=== PATIENT | male | born 2005 | race Caucasian/White ===

== ENCOUNTER 2024-10-05 16:12 | Emergency (ER) | payer OTHER, SELFPAY ==
[2024-10-05] VITALS (8 sets, daily range): BP systolic 99–119; BP diastolic 63–67; PULSE 61–97; RESP 16–18; TEMP 37.2–38.7; O2SAT 95–99; BMI 19.9
--- NOTE | 2024-10-05 17:21 | ED.ABDPAIN ---
HPI - Abdominal Pain General Date Seen: 10/05/24 Chief Complaint: Fever Stated Complaint: bacterial infection, sent from urgent care Time Seen by Provider: 10/05/24 16:16 Source: patient, RN notes reviewed and old records reviewed Mode of arrival: ambulatory Limitations: no limitations History of Present Illness HPI narrative: Patient is a very nice 18-year-old gentleman who presents here for evaluation of right lower quadrant pain and being sick for the last 2 weeks, 2 weeks ago he had an acute illness involving nausea and vomiting, and some diarrhea. He said he improved from that although he was really sick at that time and now his only right lower quadrant pain. He saw her urgent care today who thought he was also jaundice, and with the history of right lower quadrant pain. Thought she he should come to the emergency room for further assessment. He denies any history of fevers chills, he has had no dysuria frequency he has had no further episodes of loose stools. He did not take any antibiotics as min taking any medications for this. Previous to this he was on no medications no allergies and no hospitalizations. 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 Speaks excellent [place] Irish. 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 No history of any surgeries on his abdomen, MD elicited complaint: abdominal pain Related Data Home Medications ?Medication ?Instructions ?Recorded ?Confirmed No Known Home Medications 10/05/24 10/05/24 Allergies Allergy/AdvReac Type Severity Reaction Status Date / Time No Known Drug Allergies Allergy Verified 10/05/24 18:27 Review of Systems Status of ROS Reports: 10 or more systems reviewed and unremarkable except as noted in History and below PFSH PFS Social History Smoking Status: Never smoker How often do you have a drink containing alcohol: monthly or less AUDIT-C Alcohol total score: 1 Non-prescribed substance use: denies use Exam Narrative: Exam Narrative: On examination here is thin he is tall, he is in no apparent distress he has some mild acne around his oropharynx, pupils equal round reactive to light his TMs are normal his oropharynx normal his neck is supple chest is excellent air entry bilaterally with no wheezing crackles noted his heart sounds are normal, no clicks murmurs or gallops his abdomen is scaphoid, there is no tenderness in the right upper quadrant when I pressed. He has a negative Peguero sign his tenderness is all in the mid to lower right lower abdominal region along his right inguinal area he does not have a hernia normal male genitalia, skin reveals no petechiae rashes he has no CVA tenderness no percussion tenderness noted over his back and he has no rashes. Neurologically intact moving his upper lower extremities. Const: Vital Signs, click to edit/add: Vital Signs - 24 hr 10/05/24 16:19 10/05/24 17:45 10/05/24 18:12 Temperature 101.7 F H 101.7 F H 100.8 F H Pulse Rate Pulse Rate [Left P ulse Oximeter] Pulse Rate [Pulse Oximeter] 97 80 Respiratory Rate 16 18 Blood Pressure Blood Pressure [Ri ght Arm] Blood Pressure [Ri ght Upper Arm] 99/63 119/64 Pulse Oximetry 99 95 Oxygen Delivery Me thod Room Air Room Air 10/05/24 18:26 10/05/24 19:48 10/05/24 19:51 Temperature 100.8 F H 99.2 F Pulse Rate Pulse Rate [Left P ulse Oximeter] 80 Pulse Rate [Pulse Oximeter] 68 Respiratory Rate 18 18 Blood Pressure 104/65 Blood Pressure [Ri ght Arm] 119/64 Blood Pressure [Ri ght Upper Arm] 104/65 Pulse Oximetry 95 97 Oxygen Delivery Me thod Room Air Room Air 10/05/24 20:02 Temperature Pulse Rate 66 Pulse Rate [Left P ulse Oximeter] Pulse Rate [Pulse Oximeter] Respiratory Rate Blood Pressure 100/63 Blood Pressure [Ri ght Arm] Blood Pressure [Ri ght Upper Arm] Pulse Oximetry 96 Oxygen Delivery Me thod Documenting provider has reviewed patient's vital signs: yes Course Reevaluation(s) Time of Reevaluation #1: 19:52 Reevaluation #1: I went over the patient and his white count is elevated at 22 showing all neutrophils, and his CT scan shows evidence of what looks like a appendiceal abscess, I reviewed this with her surgeon Dr. John she suggested transfer for percutaneous drainage, and IV antibiotics she suggested Ertapenem. I explained this to the patient he would likes the check with [place] 1[facility], an [place] 2nd. He once again declined pain medication Vital Signs Vital signs: Initial Vital Signs Temperature 101.7 F H 10/05/24 16:19 Temperature Source Temporal Artery Scan 10/05/24 16:19 Pulse Rate 97 10/05/24 16:19 Respiratory Rate 16 10/05/24 16:19 Blood Pressure 99/63 10/05/24 16:19 Blood Pressure Mean 75 10/05/24 16:19 Blood Pressure Position Sitting 10/05/24 16:19 Pulse Oximetry 99 10/05/24 16:19 Oxygen Delivery Method Room Air 10/05/24 16:19 Vital Signs Temperature 101.7 F H 10/05/24 16:19 Pulse Rate 97 10/05/24 16:19 Respiratory Rate 16 10/05/24 16:19 Blood Pressure 99/63 10/05/24 16:19 Pulse Oximetry 99 10/05/24 16:19 Oxygen Delivery Method Room Air 10/05/24 16:19 Temperature 99.2 F 10/05/24 19:51 Pulse Rate 66 10/05/24 20:02 Respiratory Rate 18 10/05/24 19:51 Blood Pressure 100/63 10/05/24 20:02 Pulse Oximetry 96 10/05/24 20:02 Oxygen Delivery Method Room Air 10/05/24 19:51 Medications Administered Medications: Generic Name Dose Route Start Last Admin Trade Name Freq PRN Reason Stop Dose Admin Ertapenem 1 gm/ Sodium 100 mls @ 200 mls/hr 10/05/24 19:41 10/05/24 20:17 Chloride IVPB 10/05/24 19:42 200 mls/hr ONCE ONE Administration Discontinued Medications Generic Name Dose Route Start Last Admin Trade Name Freq PRN Reason Stop Dose Admin Acetaminophen 1,000 mg 10/05/24 17:09 10/05/24 17:45 Acetaminophen 500 Mg Tablet PO 10/05/24 17:10 1,000 mg ONCE ONE Administration Sodium Chloride 1,000 mls @ 1,000 mls/hr 10/05/24 17:15 10/05/24 19:03 0.9 % Sodium Chloride 1000 Ml IV 10/05/24 18:14 Infused .Q1H KELLEY Infusion MDM - Abdominal Pain MDM Narrative Medical decision making narrative: During this evaluation of this patient I considered multiple differential diagnosis is which included the life-threatening such as appendicitis, aortic aneurysm, mesenteric ischemia, bowel perforation, volvulus, and bowel obstruction. Other differential diagnosis is include but are not limited to cholecystitis, pancreatitis, hepatitis, gastritis, GERD, diverticulitis, peptic ulcer disease, pyelonephritis/UTI, renal colic/stone, testicular torsion as well as other acute scrotal processes, inflammatory bowel disease, as well as other etiologies Medical Records Attestation: I reviewed the patient's medical records. Lab Data Attestation: I reviewed the patient's lab results. Labs: Lab Results 10/05/24 10/05/24 Range/Units 17:34 17:38 WBC 22.90 H (4.50-11.00) K/uL RBC 4.46 (4.30-5.90) m/uL Hgb 13.4 L (13.5-17.5) gm/dL Hct 39.8 (37.0-53.0) % MCV 89 (80-100) fL MCH 30 (26-34) pg MCHC 34 (32-36) gm/dL RDW Coeff of Erica 12.6 (11.5-15.5) % Plt Count 289 (140-440) K/uL Neut % (Auto) 87.6 H (42.0-72.0) % Lymph % (Auto) 5.2 L (20-44) % Crook % (Auto) 6.6 (0.0-11.0) % Eos % (Auto) 0.1 (0.0-7.0) % Baso % (Auto) 0.2 (0.0-3.0) % Neut # (Auto) 20.10 H (1.7-7.0) K/uL Lymph # (Auto) 1.20 (0.90-2.90) K/uL Crook # (Auto) 1.50 H (0.00-0.90) K/UL Eos # (Auto) 0.00 (0.00-0.50) K/uL Baso # (Auto) 0.00 (0.00-0.30) K/uL Abs Immat Gran (auto) 0.10 (0.00-0.30) K/uL Imm/Tot Granulo (auto) 0.3 % Sodium 133 L (135-149) mmol/L Potassium 4.7 (3.6-5.1) mmol/L Chloride 98 (96-114) mmol/L Carbon Dioxide 24 (20-32) mmol/L Anion Gap 11 (7-15) mEq/L BUN 16 (5-24) mg/dL Creatinine 0.8 (0.6-1.2) mg/dL Estimated Creat Clear 160.08 Estimated GFR 131 ml/min Glucose 113 (60-115) mg/dL Lactate 1.0 (0.5-1.9) mmol/L Calcium 9.3 (8.7-10.8) mg/dL Total Bilirubin 1.2 (0.1-1.5) mg/dL Direct Bilirubin 0.2 (0.0-0.5) mg/dL AST 29 (12-35) U/L ALT 25 (4-50) U/L Alkaline Phosphatase 74 (65-260) U/L C-Reactive Protein 20.0 H (0.5-1.0) mg/dL Total Protein 7.0 (6.0-8.3) g/dL Albumin 3.8 (3.3-5.0) g/dL Amylase 62 (18-89) U/L Lipase 61 (23-300) U/L Procalcitonin 0.32 (<0.50) ng/mL Urine Color Yellow (Yellow) Urine Appearance Slightly Cloudy A (Clear) Urine pH 5.5 (5.0-8.5) Ur Specific [place] 1.025 (1.000-1.030) Urine Protein 3+ A (Negative) Urine Glucose (UA) Negative (Negative) Urine Ketones Negative (Negative) Urine Blood Trace-intact A (Negative) Urine Nitrite Negative (Negative) Urine Bilirubin Negative (Negative) Urine Urobilinogen 0.2 (0.2-1.0) Ur Leukocyte Esterase Negative (Negative) Urine RBC 0-2 (0-2) Urine WBC 0-2 (0-5) Ur Squamous Epith Cells Few (None-Few) Urine Bacteria None (None) SARS-CoV-2 (PCR) Negative SARS-CoV-2 (Negative) Influenza Type A (PCR) Negative PCR FLU A (Negative) Influenza Type B (PCR) Negative PCR FLU B (Negative) RSV (PCR) Negative PCR RSV (Negative) Imaging Data CT scan - abdomen: Attestation: I have reviewed the pertinent imaging results. Radiologist's impression: [address] [address] Diagnostic Imaging Report Patient: Johnny Vann MR#: [id number] : 2005 Acct:[id number] Loc: ED Service Date: 10/05/[address]: Ordering Physician: Liu Everett M.D. Date of Service: 10/05/24 Procedure(s): CT abdomen pelvis w con Accession Number(s): [id number] cc: Provider,Not a Local; Liu Everett M.D.~ For Patients: As a result of the Cures Act, medical imaging exams and procedure reports are released immediately into your electronic medical record. You may view this report before your referring provider. If you have questions, please contact your health care provider. INDICATION: Right lower quadrant pain, bacterial infection. TECHNIQUE: CT of the abdomen and pelvis acquired with 82 cc Isovue 370 IV contrast. Coronal and sagittal reconstructions. COMPARISON: None. FINDINGS: Lower chest: Unremarkable. Liver: Enlarged measuring 22 cm in length. Normal attenuation. No suspicious masses. Gallbladder and bile ducts: Unremarkable. No biliary dilation. Spleen: Enlarged measuring 15 cm in length. Pancreas: Unremarkable. Adrenal glands: Unremarkable. Kidneys, Ureters, and Bladder: Symmetric enhancement. No hydronephrosis or obstructing stones. No significant bladder wall thickening. Reproductive organs: Unremarkable. GI tract/Peritoneum: No small bowel dilation. There is a short segment enteroenteric intussusception in the left mid abdomen which is likely transient. There is a complex rim enhancing gas and fluid collection in the right lower quadrant posterior to the cecum with surrounding inflammatory fat stranding measuring approximately 5.3 x 6.0 x 8.4 cm (series 2, image 116 and series 4, image 51). There is a 14 mm irregular calcific density centrally within this collection which likely represents an appendicolith. The appendix is not clearly identified. Findings are suspicious for ruptured acute appendicitis with abscess formation. No evidence of desire free air. No significant free fluid. Vasculature: Abdominal aorta is normal in caliber. Mesenteric arteries appear patent. Lymph nodes: Borderline enlarged enhancing right lower quadrant mesenteric lymph nodes and right external iliac chain lymph nodes are likely reactive. Abdominal Wall: Unremarkable. Bones: Unremarkable for age. IMPRESSION: 1. Inflammatory process in the right lower quadrant posterior to the cecum with a 5.3 x 6.0 x 8.4 cm complex gas and fluid collection and large central irregular calcific density. Findings are suspicious for ruptured acute appendicitis with abscess formation. No desire free air. 2. Borderline enlarged right lower quadrant lymph nodes are likely reactive. 3. Hepatosplenomegaly. Please note that all CT scans at this facility use dose modulation, iterative reconstruction, and/or weight-based dosing when appropriate to reduce radiation dose to as low as reasonably achievable. Dictated by Sole Silva MD @ 10/05/2024 7:13:05 PM (Electronically Signed) Discharge Plan Discharge Clinical Impression: Appendiceal abscess Patient Disposition: [facility] Condition: Stable Prescriptions: No Action No Known Home Medications Stand Alone Forms: MyHealth Info Instructions
[2024-10-05] MEDS: ACETAMINOPHEN 500 MG TABLET 1000 MG PO (17:45)
[2024-10-05] MEDS: 0.9 % SODIUM CHLORIDE 1000 ml 1,000 ML IV (17:46)
[2024-10-05 17:53] LABS: Appearance Urine Slightly Cloudy (Clear); Bilirubin Urine Negative (Negative); Blood Urine Trace-intact (Negative); Glucose Urine Negative (Negative); Ketones Urine Negative (Negative); Leukocyte Esterase Urine Negative (Negative); Nitrite Urine Negative (Negative); Protein Urine 3+ (Negative); Specific Gravity Urine 1.025 (1.000-1.030); Urobilinogen Urine 0.2 (0.2-1.0); pH Urine 5.5 (5.0-8.5)
[2024-10-05 17:54] LABS: Color Urine Yellow (Yellow)
[2024-10-05 18:00] LABS: Basophils Percent Auto 0.2 % (0.0-3.0); Eosinophils Percent Auto 0.1 % (0.0-7.0); Hematocrit 39.8 % (37.0-53.0); Hemoglobin* 13.4 gm/dL (13.5-17.5); Immature Granulocytes Pct Auto 0.3 %; Lymphocytes Percent Auto 5.2 % (20-44); Mean Corpuscular HGB Conc 34 gm/dL (32-36); Mean Corpuscular Hemoglobin 30 pg (26-34); Mean Corpuscular Volume 89 fL (80-100); Monocytes Percent Auto 6.6 % (0.0-11.0); Neutrophils Percent Auto 87.6 % (42.0-72.0); Platelet Count* 289 K/uL (140-440); RDW Coefficient of Variation % 12.6 % (11.5-15.5); Red Blood Count 4.46 m/uL (4.30-5.90)
[2024-10-05 18:03] LABS: Chloride* 98 mmol/L (96-114); Potassium* 4.7 mmol/L (3.6-5.1); Sodium* 133 mmol/L (135-149)
[2024-10-05 18:04] LABS: Albumin* 3.8 g/dL (3.3-5.0)
[2024-10-05 18:05] LABS: Creatinine* 0.8 mg/dL (0.6-1.2); Est. Creatinine Clearance* 160.08; Estimated Glomerular Filt Rate 131 ml/min
[2024-10-05 18:06] LABS: Anion Gap 11 mEq/L (7-15); Carbon Dioxide* 24 mmol/L (20-32); Lipase* 61 U/L (23-300)
[2024-10-05 18:07] LABS: Alkaline Phosphatase* 74 U/L (65-260); Amylase* 62 U/L (18-89); Aspartate Amino Transferase* 29 U/L (12-35); Bilirubin Direct* 0.2 mg/dL (0.0-0.5); Bilirubin Total* 1.2 mg/dL (0.1-1.5); Blood Urea Nitrogen* 16 mg/dL (5-24); Calcium* 9.3 mg/dL (8.7-10.8); Glucose* 113 mg/dL (60-115)
[2024-10-05 18:08] LABS: Alanine Aminotransferase* 25 U/L (4-50); Slide Review Reflex No
[2024-10-05 18:23] LABS: Procalcitonin* 0.32 ng/mL (<0.50)
[2024-10-05 18:25] LABS: RBC Urine 0-2 (0-2); Squamous Epithelial Cell Urine Few (None-Few); WBC Urine 0-2 (0-5)
[2024-10-05 18:54] LABS: PCR FLU A Negative PCR FLU A (Negative); PCR FLU B Negative PCR FLU B (Negative); PCR RSV Negative PCR RSV (Negative); SARS PCR* Negative SARS-CoV-2 (Negative)
[2024-10-05] MEDS: ERTAPENEM 1 GM in 0.9 % SODIUM CHLORIDE Mini-bag 100 ML IVPB (20:17)
[2024-10-05] MEDS: LACTATED RINGERS 1000 ML 1,000 ML 75 ML IV (22:09)
[2024-10-05] MEDS: ONDANSETRON 2 MG/ML inj 4 MG IVP (22:10)
== END 2024-10-05 23:15 | disposition short-term general hospital (02) ==
PROVIDERS: Emergency Provider Family Medicine
DX: K35.210 Acute appendicitis with generalized peritonitis, without perforation, with abscess (principal)
CPT/HCPCS: 36415; 74177; 80048; 80076; 81001; 82150; 83605; 83690; 84145; 85025; 86140; 87040; 87631; 96365; 96375; 99284; A9270; J1335; J2405; J7030; J7120; Q9967

== ENCOUNTER 2024-10-05 23:11 | Outpatient (CLI) | payer OTHER, SELFPAY | END 2024-10-05 23:12 | disposition home or self-care (01) | LOC: AMB 10-10 15:21 | PROVIDERS: Visit Provider Emergency Medicine | DX: K35.33 Acute appendicitis with perforation, localized peritonitis, and gangrene, with abscess (principal) | CPT/HCPCS: A0425; A0434 ==

== ENCOUNTER 2024-10-19 15:33 | Emergency (ER) | payer OTHER, SELFPAY ==
[2024-10-19] VITALS (14 sets, daily range): BP systolic 95–109; BP diastolic 57–61; PULSE 80–97; RESP 18–20; TEMP 37.8–38.8; O2SAT 95–99; BMI 19.0
--- OUTSIDE RECORDS SUMMARY | 2024-10-19 15:34 | XMS_ITS | Encounter Summary ---
Author Organization [facility] Address [address] [place] [address] Care Team Providers Care Peer Counselor Name Role Phone None Reported, Pcp Primary Care Provider Unavail able Encounter Details Date Type Department Care Team (Late st Contact Info) Description 10/09/2024 Clinical Communication [facility]ST HIM [address] [place] [phone] Roya Clifton M [address] [place] [address] Social History Tobacco Use Types Packs/Day Years Used Date Smoking Tobacco: Never [facility] [employer] Answer Date Recorded In the past 12 months has [facility] electric, gas, oil, or water company threatened to shut off services in your home? No 10/08/2024 Humiliation, Afraid, Rape, and Kick questionnair e Answer Date Recorded Within the last year, have y ou been afraid of your partner or ex-partner? No 10/08/2024 Within the last year, have y ou been humiliated or emotionally abused in other ways by your partner or ex-partner? No Within the last year, have y ou been kicked, hit, slapped, or otherwise physically hurt by your partner or ex-partner? No 10/08/2024 Within the last year, have y ou been raped or forced to have any kind of sexual activity by your partner or ex-partner? No 10/08/2024 Hunger Vital Sign Answer Date Recorded Within the past 12 months, y ou worried that your food would run out before you got the money to buy more. Never true 10/08/19 25 Within the past 12 months, t he food you bought just didn't last and you didn't have money to get more. Never true 10/08/2024 PRAPARE - Transportation Answer Date Re corded In the past 12 months, has l ack of transportation kept you from medical appointments or from getting medications? No 04/2025 In the past 12 months, has l ack of transportation kept you from meetings, work, or from getting things needed for daily living? No 10/08/2024 Dental Answer Date Recorded Dental: Regular Dentist Unknown 10/05/19 Housing Stability Answer Date Recorded What is your living situation today? 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 [address] [place] [phone] 11/17/2024 11:30 AM CDT Appointment Department of Radiology in [address] [phone] Schuyler Norman APRN, C.N.P., M.S.N. [address] [place] [phone] 11/17/2024 1:00 PM CDT Office Visit Division of Trauma Critical Care and General Surgery in [address] [phone] Schuyler Norman APRN, C.N.P., M.S.N. [address] [place] [phone] documented as of this encounter Visit Diagnoses Not on filedocumented in this encounter Care Teams Peer Counselor Relationship Specialty Start Date End Date None Reported, Pcp PCP - General Family Medicine 10/06/24 documented as of this encounter
--- OUTSIDE RECORDS SUMMARY | 2024-10-19 15:35 | XMS_ITS | Encounter Summary ---
Author Organization [facility] Address [address] [place] [address] Care Team Providers Care Batch Plant Supervisor Name Role Phone None Reported, Pcp Primary Care Provider Unavail able Reason for Visit * Reason Comments Return Visit * Outpatient (Routine) - Closed Specialty Diagnoses / Procedures Referred By Contkelsea t Referred To Contact Trauma Critical Care and General Surgery Diagnoses Acute Appendicitis With Perforation Localized Peritonitis And Gangrene With Abscess Joseluis Daily, PJayAJay-Elfego [address] [place] [phone] Phone: tel: fax: [facility] Referral ID Status Reason Start Date Expiration Date Visits Re quested Visits Authorized [id number] Closed 10/09/2024 04/10/2026 1 1 Encounter Details Date Type Department Care Team (Late st Contact Info) Description 10/12/2024 2:15 PM GAS COLLECTION SYSTEM OPERATOR Office Visit Division of Trauma Critical Care and General Surgery in [place], [place] [address] [place] [phone] Joseluis Daily PJayAJay-CJay [address] [place] [phone] Schuyler Norman APRN, C.N.P., M.S.N. [address] [place] [phone] Candido Simpson M.D. [address] [place] [phone] Acute Appendicitis With Perforation Localized Peritonitis And Gangrene With Abscess Social History Tobacco Use Types Packs/Day Years Used Date Smoking Tobacco: Never Smokeless Tobacco: Never [facility] Utilities Answer Date Recorded In the past 12 months has th e electric, gas, oil, or water company threatened [...] your living situation today? 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 - 10/12/2024 2:15 PM CST SUBJECTIVE CHIEF COMPLAINT / REASON FOR VISIT Johnny Vann is a 18 y.o. male who presents for visit after sinogram and CT for perforated appendicitis. HISTORY OF PRESENT ILLNESS Mr. Vann initially presented to the [facility] with abdominal pain. History of 2-3 weeks of feeling ill initially thought to be food poisoning. Imaging they are notable for perforated appendicitis. He was transferred to [facility] for further evaluation.General surgery was consulted and after review of imaging the patient underwent a CT- guided drain. He presents today for follow up after repeat CT and sinogram. Notes that he has been feeling much improved since completing his antibiotics. He has been flushinghis drain 2 times daily as noted. Notes that he is tolerating a diet without any nausea or vomiting. Having normal bowel function as well as bladder function. He denies any fevers chills or night sweats at this time. OBJECTIVE PHYSICAL EXAM Physical Exam General: Alert, sitting in bedside chair, in no acute distress. Abdomen: Soft, nontender, nondistended. Right-sided ASHISH drain with minimal seropurulent drainage. ASSESSMENT / PLAN #1 Acute Appendicitis With Perforation Localized Peritonitis And Gangrene With Abscess #2 Abdominal Pain Mr. Vann fortunately remained stable since placement of his CT-guided drain. He has been flushingthis twice a day with minimal return of seropurulent fluid. He has remained hemodynamically stable and afebrile at this time. His CT today shows free spillage into the cavity abutting his drain with p.o. contrast. Sinogram also demonstrates communication with bowel, but the drain is well-positionedand flushes easily with excellent control of the cavity. His case was discussed with [facility] team and Dr. Barnett. We will plan for him to follow up in 1 month the proximally with repeat CT imaging, sinogram, and then visit afterwards. A good amount of time was spent discussing imaging and plan with patient and his mother. We discussed the plan would be further repeat imaging coming up. If that looks improved would expect to plan for a interval colonoscopy prior to listing for interval appendectomy. We also discussed the possibility of him returning to the [place] where he currently resides while not in school. I recommended that they talk to the local surgeon and see if they would be comfortableproviding this surgery for him. This can be discussed further at future appointments. Prescriptions provided for drain dressing as well as flushes for his drain. No further questions atthis time. I personally spent 40 minutes discussing the plan of care and reviewing imaging with family and patient. COLLECTION SYSTEM OPERATOR documented in this encounter Plan of Treatment Upcoming Encounters Date Type Department Care Team (Late st Contact Info) Description 11/17/2024 9:15 AM CDT Appointment Department of Radiology, [facility], in [place], [place] [address] [place] [phone] Schuyler Norman APRN, C.N.Rich., M.S.N. [address] [place] [phone] 11/17/2024 11:30 AM CDT Appointment Department of Radiology in [place], [place] [address] [place] [phone] Schuyler Norman APRN, Yennifer.N.P., M.S.N. [address] [place] [phone] 11/17/2024 1:00 PM CDT Office Visit Division of Trauma Critical Care and General Surgery in [address] [phone] Schuyler Norman APRN C.N.P., M.S.N. [address] [place] [phone] documented as of this encounter Visit Diagnoses Diagnosis Acute Appendicitis With Perforation Localized Peritonitis And Gangrene With Abscess documented in this encounter Care Teams Batch Plant Supervisor Relationship Specialty Start Date End Date None Reported, Pcp PCP - General Family Medicine 10/06/24 documented as of this encounter
--- OUTSIDE RECORDS SUMMARY | 2024-10-19 15:35 | XMS_ITS | Encounter Summary ---
Author Organization [facility] Address [address] [place] [id number] Care Team Providers Care Dethistler Operator Name Role Phone None Reported, Pcp Primary Care Provider Unavail able Reason for Referral * MRI/CAT/PET Scan (Routine) - Closed Specialty Diagnoses / Procedures Referred By Marybel stewart Referred To Contact Radiology Diagnoses Acute Appendicitis With Perforation Localized Peritonitis And Gangrene With Abscess Procedures CT Abdomen Pelvis with IV Contrast Joseluis Daily P.A.-C. [address] [place] [phone] Phone: tel: fax: [employer] Referral ID Status Reason Start Date Expiration Date Visits Re quested Visits Authorized [id number] Closed 10/09/2024 01/09/2026 1 1 ING UNIT CLERK Reason for Visit * MRI/CAT/PET Scan (Routine) - Closed Specialty Diagnoses / Procedures Referred By Contac t Referred To Contact Radiology Diagnoses Acute Appendicitis With Perforation Localized Peritonitis And Gangrene With Abscess Procedures CT Abdomen Pelvis with IV Contrast Joseluis Daily P.A.-C. [address] [place] [phone] Phone: tel: fax: [employer] Referral ID Status Reason Start Date Expiration Date Visits Re quested Visits Authorized [id number] Closed 10/09/2024 01/09/2026 1 1 Encounter Details Date Type Department Care Team (Latest Contact Info) Description 10/12/2024 9:05 AM NURSING UNIT CLERK - 10/12/2024 10:34 AM [facility] Hospital Encounter Department of Radiology, [facility], in [place], [place] [address] [place] [phone] Joseluis Daily P.A.-C. [address] [place] [phone] Acute Appendicitis With Perforation Localized Peritonitis And Gangrene With Abscess Discharge Disposition: Home or Self Care Social History Tobacco Use Types Packs/Day Years Used Date Smoking Tobacco: Never Smokeless Tobacco: Never [facility] Utilities Answer Date Recorded In the past 12 months has e electric, gas, oil, or water company [...] money to buy more. Never true 10/08/19 Within the past 12 months, t he [...] your living situation today? I have a [facility] place to live 10/08/2024 Sex and Gender Information Value Date Recorded Sex Assigned at Not on file Legal Sex Male 8:10 PM NURSING UNIT CLERK Gender Identity Not on file Sexual Orientation Not on file documented as of this encounter Medications at Time of Discharge acetaminophen (TylenoL) 500 mg tablet Take 2 tablets (1,000 mg total) by mouth every 6 (six) hours. 10/08/2024 boron aspartate (BORON COMPLEX ORAL) Take 1 tablet by mouth daily. OTC ferrous sulfate (IRON ORAL) Take 1 tablet by mouth daily. OTC - unknown dose/formulation MAGNESIUM ORAL Take 1 tablet by mouth daily. OTC supplement (unknown dose/formulation) sennosides (senna) 8.6 mg tablet Take 2 tablets (17.2 mg total) by mouth at bedtime as needed for constipation. For constipation 10/08/2024 sodium chloride 0.9 % injection Administer 3 mL every 8 (eight) hours. Please flush and aspirate your drain in the morning and evening with 3 cc of normal saline. 300 mL 10/08/2024 8:45 PM NURSING UNIT CLERK 10/08/2024 ZINC ORAL Take 1 tablet by mouth daily. OTC - unknown dose/formulation amoxicillin-pot clavulanate (Augmentin) 875-125 mg per tabletIndications :Intra-abdominal infection, community acquired Take 1 tablet by mouth every 12 (twelve) hours for 5 days Indications: Intra-abdominal infection, community acquired. 9 tablet 10/08/2024 8:45 PM NURSING UNIT CLERK 10/08/2024 documented as of this encounter Nursing Notes * Padmini Kearney L.P.N. - 10/12/2024 9:30 AM CST Outpatient, keeping PIV in for later exam or refused to keep in for later exam requiring PIV: Is PIV being left in? YES If no, did patient refuse? NO Why is PIV being left in? Another procedure/exam scheduled for today which requires a PIV Name and role of person notified in receiving area: [facility], alma Sommer ING UNIT CLERK documented in this encounter Plan of Treatment Upcoming Encounters Date Type Department Care Team (Late st Contact Info) Description 11/17/2024 9:15 AM CDT Appointment Department of Radiology, [facility], in [place], [place] [address] [place] [phone] Schuyler Norman APRN, C.N.P., M.S.N. [address] [place] [phone] 11/17/2024 11:30 AM CDT Appointment Department of Radiology in [place], [place] [address] [place] [phone] Schuyler Norman APRN, C.N.P., M.S.N. [address] [place] [phone] 11/17/2024 1:00 PM CDT Office Visit Division of Trauma Critical Care and General Surgery in [address] [phone] Schuyler Norman APRN, C.N.P., M.S.N. [address] [place] [phone] documented as of this encounter Procedures Procedure Name Priority Date/Time Associated Diagnosis Comments CT ABDOMEN PELVIS WITH IV CONTRAST RAD - Routine (most inpatients and all outpatients) 10/12/2024 10:10 AM NURSING UNIT CLERK Acute Appendicitis With Perforation Localized Peritonitis And Gangrene With Abscess documented in this encounter Results * CT Abdomen Pelvis with IV Contrast (10/12/2024 10:10 AM NURSING UNIT CLERK) Anatomical Region Laterality Modality Abdomen, Pelvis, Abdominal R ST LOS, Abdominal ARZ LOS, Abdominal FLA LOS N/A Computed Tomograp hy, Computed Tomography 10/12/2024 10:1 4 AM NURSING UNIT CLERK Impressions 10/12/2024 11:36 AM NURSING UNIT CLERK Interval placement of a percutaneous pigtail catheter into a periappendiceal abscess, which has substantially decreased in size. However, administered enteric contrast does readily fill the periappendiceal abscess cavity. No new discrete, drainable fluid collection. Narrative 10/12/2024 11:36 AM NURSING UNIT CLERK EXAM: CT ABDOMEN PELVIS WITH IV CONTRAST COMPARISON: CT abdomen/pelvis 10/05/2024 FINDINGS: History of perforated appendicitis, status post CT-guided drain placement on 10/06/2024. Since 10/05/2024, the periappendiceal abscess has decreased in size, now measuring approximately 4.3 x 2.3 cm (circa axial image 310), previously 6.3 x 4.6 cm. Enteric contrast was administered and extends to the cecum; contrast does freely fill the abscess cavity. Redemonstration of multiple calcified appendicoliths along the cephalad aspect of the pigtail catheter (images [id number]). No new discrete, drainable fluid collection. The bowel is normal in caliber. The liver, spleen, pancreas, adrenal glands, and kidneys are unremarkable. Distended urinary bladder. Patent hepatic, portal, and superior mesenteric veins. No abdominal aortic aneurysm. Mildly prominent lymph nodes within the ileocolic chain, likely reactive. No desire abdominopelvic adenopathy or ascites. Tiny nodule left lung base (axial image 55). The visualized lower chest is otherwise unremarkable. Procedure Note Jf Dinero M.D. - 10/12/2024 EXAM: CT ABDOMEN PELVIS WITH IV CONTRAST COMPARISON: CT abdomen/pelvis 10/05/2024 FINDINGS: History of perforated appendicitis, status post CT-guided drainplacement on 10/06/2024. Since 10/05/2024, the periappendiceal abscess hasdecreased in size, now measuring approximately 4.3 x 2.3 cm (circa axialimage 310), previously 6.3 x 4.6 cm. Enteric contrast was administered and extends to the cecum; contrastdoes freely fill the abscess cavity. Redemonstration of multiple calcifiedappendicoliths along the cephalad aspect of the pigtail catheter ([id number]). No new discrete, drainable fluid collection. The bowel is normal in caliber. The liver, spleen, pancreas, adrenal glands, and kidneys are unremarkable.Distended urinary bladder. Patent hepatic, portal, and superior mesentericveins. No abdominal aortic aneurysm. Mildly prominent lymph nodes withinthe ileocolic chain, likely reactive. No desire abdominopelvic adenopathy or ascites. Tiny nodule left lung base (axial image 55). The visualized lower chest isotherwise unremarkable. IMPRESSION: Interval placement of a percutaneous pigtail catheter into aperiappendiceal abscess, which has substantially decreased in size.However, administered enteric contrast does readily fill theperiappendiceal abscess cavity. No new discrete, drainable fluid collection. Joseluis Daily P.A.-C. IMG CT PROCEDURES Final Res ult documented in this encounter Visit Diagnoses Diagnosis Acute Appendicitis With Perforation Localized Peritonitis And Gangrene With Abscess documented in this encounter Administered Medications Inactive Administered Medications - up to 3 most recent administrations Medication Order MAR Action Action Date Dose Rate Site iohexoL (Omnipaque) dilution solution 9 mg iodine/mL 495-9,000 mg, oral, Once in imaging, contrast, Starting on Susan 10/12/24 at 0914, For 1 dose, Imaging Protocol Orders, Dose per Radiant Medication Guidelines Dosing Instructions/Compounding Instructions: Adults = 9,000 mg = 30 mL of 300 mg iodine/mL in 1,000 mL water; Peds > 18 kg = 4,500 mg = 15 mL of 300 mg iodine/mL in 500 mL apple juice or water; Peds 12-18 kg = 1,980-2,880 mg = 15 mL of 300 mg iodine/mL in 500 mL apple juice or water; Peds 8-12 kg = 1,350-1,935 mg = 7.5 mL of 300 mg iodine/mL in 250 mL apple juice or water; Peds 1-8 kg = 495-720 mg = 7.5 mL of 300 mg iodine/mL in 250 mL apple juice or water. Multiply the number of mLs consumed by 9 to calculate the total mg for documentation. Given 10/12/2024 10:22 AM NURSING UNIT CLERK 9,000 mg iohexoL 300 mg iodine/mL solution 1-200 mL (Omnipaque) 1-200 mL, intravenous, Once in imaging, contrast, Starting on Susan 10/12/24 at 0914, For 1 dose, Imaging Protocol Orders, Dose per Radiant Medication Guidelines Given 10/12/2024 9:53 AM NURSING UNIT CLERK 140 mL sodium chloride (PF) 0.9 % injection 1-100 mL 1-100 mL, intravenous, Once, On Susan 10/12/24 at 0930, For 1 dose, Imaging Protocol Orders, Dose per Radiant Medication Guidelines Given 10/12/2024 9:53 AM NURSING UNIT CLERK 50 mL documented in this encounter Care Teams Dethistler Operator Relationship Specialty Start Date End Date None Reported, Pcp PCP - General Family Medicine 10/06/24 documented as of this encounter
--- OUTSIDE RECORDS SUMMARY | 2024-10-19 15:35 | XMS_ITS | Clinical Summary ---
Author Organization [facility] Address [address] [place] [id number] Care Team Providers Care Suction Worker Name Role Phone None Reported, Pcp Primary Care Provider Unavail able Source Comments Patient records contain information from all sites at [facility]. For routine questions regarding patient records, call [phone] during business hours, M-F 8:00 AM - 5:00 PM Central Time. Record requests for emergency care only can be directed to [phone] at any time.[facility] Allergies No known active allergies Medications MAGNESIUM ORAL Take 1 tablet by mouth daily. OTC supplement (unknown dose/formulatio n) Active boron aspartate (BORON COMPLEX ORAL) Take 1 tablet by mouth daily. OTC Active ferrous sulfate (IRON ORAL) Take 1 tablet by mouth daily. OTC - unknown dose/formulatio n Active ZINC ORAL Take 1 tablet by mouth daily. OTC - unknown dose/formulatio n Active acetaminophen (TylenoL) 500 mg tablet Take 2 tablets (1,000 mg total) by mouth every 6 (six) hours. 10/08/19 25 Active sennosides (senna) 8.6 mg tablet Take 2 tablets (17.2 mg total) by mouth at bedtime as needed for constipation. For constipation 10/08/19 25 Active sodium chloride 0.9 % injection Administer 3 mL every 8 (eight) hours. Please flush and aspirate your drain in the morning and evening with 3 cc of normal saline. 300 mL 5 8:45 PM [facility] 10/08/19 25 Active sodium chloride (BD PosiFlush Normal Saline 0.9) 0.9 % injection Infuse 3 mL into a venous catheter every 12 (twelve) hours as needed for line care. Flush drain as directed 60 mL 1 10/12/19 25 2024 Active amoxicillin-po t clavulanate (Augmentin) 875-125 mg per tabletIndicati ons:Intra-abdo vianca infection, community acquired Take 1 tablet by mouth every 12 (twelve) hours for 5 days Indications: Intra-abdominal infection, community acquired. 9 tablet 8:45 PM [facility] 10/08/192024 sodium chloride 0.9 % injection Infuse 3 mL into a venous catheter every 8 (eight) hours. 30 each 1 10/08/19 25 2024 Discontinued sodium chloride 0.9 % injection Administer 3 mL every 8 (eight) hours. Please flush and aspirate your drain in the morning and evening with 3 cc of normal saline. 300 mL 1 10/08/19 25 2024 Discontinued sodium chloride 0.9 % injection Administer 3 mL every 8 (eight) hours. Please flush and aspirate your drain in the morning and evening with 3 cc of normal saline. 300 mL 10/08/19 25 2024 Discontinued sodium chloride 0.9 % injection Infuse 3 mL into a venous catheter every 12 (twelve) hours as needed for line care. Flush drain as directed 60 each 1 10/12/19 25 2024 Discontinued(R eorder) Active Problems Problem Noted Date Diagnosed Date Abdominal Pain 10/06/2024 Acute Appendicitis With Perf oration Localized Peritonitis And Gangrene With Abscess 10/06/2024 Encounters Date Type Department Care Team Description 10/19/2024 Documentation Division of Trauma Critical Care and General Surgery in [address] [phone] Gilma Yoon, C.N.P., R.N. 10/12/2024 2:15 PM [facility] Office Visit Division of Trauma Critical Care and General Surgery in [address] [phone] Joseluis Daily, PJayASchuyler Green APRN, C.N.P., M.S.N. Candido Simpson M.D. Acute Appendicitis With Perforation Localized Peritonitis And Gangrene With Abscess 10/12/2024 10:36 AM [facility] - 10/12/2024 12:51 PM [facility] Hospital Encounter Department of Radiology in [address] [phone] Joseluis Daily P.A.-C. Fleming, Chad J, M.D. Acute Appendicitis With Perforation Localized Peritonitis And Gangrene With Abscess Discharge Disposition: Home or Self Care 10/12/2024 9:05 AM [facility] - 10/12/2024 10:34 AM [facility] Hospital Encounter Department of Radiology, [facility], in [address] [phone] Joseluis Daily P.A.-C. Acute Appendicitis With Perforation Localized Peritonitis And Gangrene With Abscess Discharge Disposition: Home or Self Care 10/12/2024 Orders Only Division of Trauma Critical Care and General Surgery in [address] [phone] Schuyler Norman APRN, C.N.P., M.S.N. Acute Appendicitis With Perforation Localized Peritonitis And Gangrene With Abscess (Primary Dx) 10/09/2024 Clinical Communication [facility] [address] [place] [phone] Roya Clifton 10/09/2024 Clinical Communication [facility] [address] [phone] Joseluis Daily P.A.-C. Pre-visit Testing Orders 10/06/2024 4:35 AM [facility] Ancillary Procedure Department of General Surgery 10/06/2024 1:25 AM [facility] - 10/08/2024 8:57 PM [facility] Hospital Encounter [facility], [facility], Fifth Floor [address] [place] [phone] Letty Kevin P.A.-C. Zietlow, John M, M.D. Abdominal Pain (Primary Dx); Appendicitis Acute; Acute Appendicitis With Perforation Localized Peritonitis And Gangrene With Abscess Discharge Disposition: Home or Self Care 10/06/2024 1:15 AM [facility] Ancillary Procedure Department of Radiology in [place], [place] [address] [place] [address] Letty Kevin P.A.-C. 10/05/2024 Intake [facility] from Last 3 Months Social History Tobacco Use Types Packs/Day Years Used Date Smoking Tobacco: Never Smokeless Tobacco: Never Tobacco Cessation:Counseling Given: Not Answered [facility] Utilities Answer Date Recorded In the past 12 months has e [employer], oil, or water [email or web address] threatened to shut off services in your [...] your living situation today? I have a [facility] place to live 10/08/2024 Sex and Gender Information Value Date Recorded Sex Assigned at Not on file Legal Sex Male 8:10 PM [facility] Gender Identity Not on file Sexual Orientation Not on file Last Filed Vital Signs Vital Sign Reading Time Taken Comments Blood Pressure 122/64 10/12/2024 12:39 PM [facility] Pulse 67 10/12/2024 12:39 PM [facility] Temperature 36.5 C (97.7 F) 10/12/2024 12:39 PM [facility] Respiratory Rate 16 10/12/2024 11:34 AM [facility] Oxygen Saturation 100% 10/12/2024 12:39 PM [facility] Inhaled Oxygen Concentration - - Weight 76.4 kg (168 lb 6.9 oz) 10/12/2024 11:34 AM [facility] Height 190.5 cm (6' 3) 10/08/2024 8:15 PM [facility] Body Mass Index 21.05 10/08/2024 8:15 PM [facility] Plan of Treatment Upcoming Encounters Date Type Department Care Team (Late st Contact Info) Description 11/17/2024 9:15 AM CDT Appointment Department of Radiology, [facility], in [place], [place] [address] [place] [phone] Schuyler Norman APRN, C.N.P., M.S.N. [address] [place] [phone] 11/17/2024 11:30 AM CDT Appointment Department of Radiology in [address] [phone] Schuyler Norman APRN, C.N.P., M.S.N. [address] [place] [phone] 11/17/2024 1:00 PM CDT Office Visit Division of Trauma Critical Care and General Surgery in [address] [phone] Schuyler Norman APRN, C.N.P., M.S.N. [address] [place] [phone] Health Maintenance Due Date Last Done Comments HIV Screening 2004 Hearing Screening during Wel l Child Visit 2004 Hepatitis C Screening 2004 TB Screening during Well Chi ld Visit 2004 1 week Well Child Check-Up 2004 1 month Well Child Check-Up 2004 2 month Well Child Check-Up 2004 4 month Well Child Check-Up 01/20/2005 9 month Well Child Check-Up 06/22/2005 MMR Vaccines (1 of 1 - Stand keegan series) 2005 15 month Well Child Check-Up 12/21/2005 18 month Well Child Check-Up 03/22/2006 2 year Well Child Check-Up 09/22/2006 30 month Well Child Check-Up 03/22/2007 3 year Well Child Check-Up 09/22/2007 Well Child Check-Up Complete d in Past Year 09/22/2007 5 year Well Child Check-Up 09/22/2009 6 year Well Child Check-Up 09/22/2010 7 year Well Child Check-Up 09/22/2011 8 year Well Child Check-Up 09/22/2012 10 year Well Child Check-Up 09/22/2014 12 year Well Child Check-Up 09/22/2016 12 year Well Child Check-Up 09/22/2017 Varicella Vaccines (1 of 2 - 13+ 2-dose series) 2017 14 year Well Child Check-Up 09/22/2018 Vision Screening during Well Child Visit 2018 14 year Well Child Check-Up 09/22/2019 HPV Vaccines (1 - Male 3-dos e series) 2019 15 year Well Child Check-Up 10/19/2020 16 year Well Child Check-Up 09/22/2021 17 year Well Child Check-Up 09/22/2022 18 year Well Child Check-Up 09/22/2023 DTaP,Tdap,and Td Vaccines (1 - Tdap) 2023 Hepatitis B Vaccines (1 of 3 - 19+ 3-dose series) 2023 COVID-19 Vaccine (1 - 2023-2 5 season) 2024 Influenza Vaccine (#1) 2024 Depression Screening (Annual PHQ-2) 08/30/2024 19 year Well Child Check-Up 09/22/2024 Well Child Check-Up (WCC) 09/22/2024 IPV Vaccines Aged Out No longer eligi ble based on patient's age to complete this topic Meningococcal Vaccine Aged Out No macy gloria eligible based on patient's age to complete this topic Pneumococcal vaccine (0-49 years) Aged Out No longer eligible based on patient's age to complete this topic Procedures Procedure Name Priority Date/Time Associated Diagnosis Comments IR ABSCESS DRAIN CHECK RAD - Routine (most inpatients and all outpatients) 10/12/2024 12:34 PM [facility] Acute Appendicitis With Perforation Localized Peritonitis And Gangrene With Abscess CT ABDOMEN PELVIS WITH IV CONTRAST RAD - Routine (most inpatients and all outpatients) 10/12/2024 10:10 AM [facility] Acute Appendicitis With Perforation Localized Peritonitis And Gangrene With Abscess CBC WITHOUT DIFFERENTIAL, B Routine 10/12/2024 8:57 AM [facility] Acute Appendicitis With Perforation Localized Peritonitis And Gangrene With Abscess CBC WITHOUT DIFFERENTIAL, B Timed 10/08/2024 5:10 AM [facility] ADULT OXYGEN THERAPY Routine 10/07/2024 8:01 PM [facility] MICROSCOPIC MANUAL Routine 10/07/2024 3: 26 PM [facility] DIPSTICK, U Routine 10/07/2024 3:26 PM [facility] PH, U Routine 10/07/2024 3:26 PM [facility] OSMOLALITY, U Routine 10/07/2024 3:26 PM [facility] URINALYSIS WITH MICROSCOPIC Routine 10/07/2024 3:26 PM [facility] GLUCOSE POCT, B Routine 10/07/2024 11:54 AM [facility] ADULT OXYGEN THERAPY Routine 10/07/2024 8:01 AM [facility] BASIC METABOLIC PANEL, S/P Timed 10/07/2024 6:30 AM [facility] CBC WITHOUT DIFFERENTIAL, B Timed 10/07/2024 6:30 AM [facility] ADULT OXYGEN THERAPY Routine 10/06/2024 8:01 PM [facility] FUNGAL SMEAR Timed 10/06/2024 5:19 PM [facility] Abdominal Pain Appendicitis Acute FUNGAL CULTURE, ROUTINE Timed 10/06/2024 5:19 PM [facility] Abdominal Pain Appendicitis Acute GRAM STAIN Timed 10/06/2024 5:19 PM [facility] Abdominal Pain Appendicitis Acute BACTERIAL CULTURE, AEROBIC + SUSC Timed 10/06/2024 5:19 PM [facility] Abdominal Pain Appendicitis Acute CT ABDOMEN AND/OR PELVIS DRAIN PLACEMENT RAD - Routine (most inpatients and all outpatients) 10/06/2024 4:15 PM [facility] PROTHROMBIN TIME (PT), P Timed 10/06/2024 9:15 AM [facility] ADULT OXYGEN THERAPY Routine 10/06/2024 8:02 AM [facility] INTERPRETATION OF OUTSIDE CT ABDOMEN AND OR PELVIS RAD - Semiurgent (Fast; most ED patients; some inpatients) 10/06/2024 5:26 AM [facility] SURGERY IMAGE EXAM Routine 10/06/2024 4: 35 AM [facility] ADULT OXYGEN THERAPY Routine 10/06/2024 4:23 AM [facility] ADULT OXYGEN THERAPY Routine 10/06/2024 4:23 AM [facility] ADULT OXYGEN THERAPY Routine 10/06/2024 4:23 AM [facility] BACTERIA / TIFF CULTURE, BLOOD STAT 10/06/2024 3:06 AM [facility] TYPE AND SCREEN Routine 10/06/2024 2:55 AM [facility] LIPASE, S/P STAT 10/06/2024 2:55 AM [facility] LACTATE, B/P STAT 10/06/2024 2:55 AM [facility] HEPATIC FUNCTION PANEL, S STAT 10/06/2024 2:55 AM [facility] BASIC METABOLIC PANEL, S/P STAT 10/06/2024 2:55 AM [facility] CBC WITH DIFFERENTIAL, B STAT 10/06/2024 2:55 AM [facility] BACTERIA / TIFF CULTURE, BLOOD STAT 10/06/2024 2:55 AM [facility] OUTSIDE CT BODY Routine 10/05/2024 6:30 PM [facility] from Last 3 Months Results * IR Abscess Drain Check (10/12/2024 12:34 PM [facility]) Anatomical Region Laterality Modality Body, Vascular Interventiona l RST LOS, Vascular Interventional ARZ LOS, Vascular Interventional FLA LOS N/A X-Ray Angiography Impressions 10/12/2024 4:08 PM [facility] Diagnostic sinogram of the right lower quadrant drain demonstrates good position and function of the 10 Bulgarian periappendiceal abscess drain. Continue flushing with 3 cc sterile saline twice daily and follow-up at the discretion of the surgical team. NR Narrative 10/12/2024 4:08 PM [facility] EXAM: IR ABSCESS DRAIN CHECK CLINICAL HISTORY: 18-year-old male with acute appendicitis and localized perforation status post CT drain placement on 10/06/2024 presents for diagnostic sinogram. CT performed earlier today demonstrates substantial decrease in size of the periappendiceal abscess and filling of the cavity with enteric contrast. The patient reports that he has been flushing the drain with 3 cc sterile saline twice daily and outputs have been approximately 10 cc a day. TECHNIQUE: Fluoroscopic hockey scout image demonstrates a right lower quadrant drain with a loop partially malformed. Contrast injection for diagnostic sinogram demonstrates filling of an irregular abscess cavity which then outlines some of the calcified appendicoliths. Despite the drain loop configuration, the drain flushes and aspirates easily nicely controlling the contents of this abscess cavity. Given the overall improvement on both CT and now sinogram, we elected not to manipulate the drain. Drain returned to bulb suction. No immediate complications. PREPROCEDURE: Patient seen and evaluated. Allergies, pertinent medications, and history reviewed. Discussed risks, benefits, alternatives for procedure, and obtained informed consent. Patient understands information and questions answered. Immediately prior to starting the procedure, in the presence of the assisting personnel, procedural pause was conducted to verify correct patient identity and verification of procedure to be performed, and as applicable, correct side and site, correct patient position, availability of implants, special equipment, or special requirements, and all image and specimen identification data. The roles and responsibilities of care team members, residents, and fellows were discussed. Procedure Note Leonid Santos M.D. - 10/12/2024 EXAM: IR ABSCESS DRAIN CHECK CLINICAL HISTORY: 18-year-old male with acute appendicitis and localizedperforation status post CT drain placement on 10/06/[address]24 [address]. CT performed earlier today demonstrates substantialdecrease in size of the periappendiceal abscess and filling of the cavity with enteric contrast. The patientreports that he has been flushing the drain with 3 cc sterile saline twicedaily and outputs have been approximately 10 cc a day. TECHNIQUE: Fluoroscopic hockey scout image demonstrates a right lower quadrantdrain with a loop partially malformed. Contrast injection for diagnosticsinogram demonstrates filling of an irregular abscess cavity which thenoutlines some of the calcified appendicoliths. Despite the drain loop configuration, the drain flushesand aspirates easily nicely controlling the contents of this abscesscavity. Given the overall improvement on both CT and now sinogram, weelected not to manipulate the drain. Drain returned to bulb suction. No immediate complications. PREPROCEDURE: Patient seen and evaluated. Allergies, pertinentmedications, and history reviewed. Discussed risks, benefits, alternativesfor procedure, and obtained informed consent. Patient understandsinformation and questions answered. Immediately prior to starting the procedure, in the presence of the assistingpersonnel, procedural pause was conducted to verify correct patientidentity and verification of procedure to be performed, and as applicable,correct side and site, correct patient position, availability of implants, special equipment, or specialrequirements, and all image and specimen identification data. The rolesand responsibilities of care team members, residents, and fellows werediscussed. IMPRESSION: Diagnostic sinogram of the right lower quadrant drain demonstrates goodposition and function of the 10 Bulgarian periappendiceal abscess drain.Continue flushing with 3 cc sterile saline twice daily and follow-up atthe discretion of the surgical team. NR us Joseluis Yeny Daily P.A.-C. IMG IR PROCEDURES Final Res ult * CT Abdomen Pelvis with IV Contrast (10/12/2024 10:10 AM [facility]) Anatomical Region Laterality Modality Abdomen, Pelvis, Abdominal R ST LOS, Abdominal ARZ LOS, Abdominal FLA LOS N/A Computed Tomograp hy, Computed Tomography 10/12/2024 10:1 4 AM [facility] Impressions 10/12/2024 11:36 AM [facility] Interval placement of a percutaneous pigtail catheter into a periappendiceal abscess, which has substantially decreased in size. However, administered enteric contrast does readily fill the periappendiceal abscess cavity. No new discrete, drainable fluid collection. Narrative 10/12/2024 11:36 AM [facility] EXAM: CT ABDOMEN PELVIS WITH IV CONTRAST [...] the cephalad aspect of the pigtail catheter (-489). No new discrete, drainable fluid collection. The [...] P.A.-C. IMG CT PROCEDURES Final Res ult * (ABNORMAL) CBC without Differential (10/12/2024 8:57 AM [facility]) Only the most recent of3 resultswithin the time period is included. Hemoglobin 13.8 13.2 - 16.6 g/dL 10/12/2024 9:30 AM [facility] DTL Hematocrit 41.9 38.3 - 48.6 % 10/12/2024 9:30 AM [facility] DTL Erythrocytes 4.57 4.35 - 5.65 x10(12)/L 10/12/2024 9:30 AM [facility] DTL MCV 91.7 78.2 - 97.9 fL 10/12/2024 9:30 AM [facility] DTL RBC Distrib Width 13.1 11.8 - 14.5 % 10/12/2024 9:30 AM [facility] DTL Platelet Count 350(H) 135 - 317 x10(9)/L 10/12/2024 9:30 AM [facility] DTL Leukocytes 9.4 3.4 - 9.6 x10(9)/L 10/12/2024 9:30 AM [facility] DTL Blood (Blood, Venous) 10/12/2024 8:57 AM [facility] 10/12/2024 9:10 AM [facility] Joseluis Daily P.A.-C. LAB BLOOD ADD-ON Final Resu lt Performing Organization Address [facility] Co de Phone Number [facility] [address] [place] [address], [facility] [address] [place] [address] * (ABNORMAL) Dipstick, Urine (10/07/2024 3:26 PM [facility]) Hemoglobin, QL, U Negative Negative 10/07/2024 4:00 PM [facility] DTL Leukocyte Esterase, U Negative Negative 10/07/2024 4:00 PM [facility] DTL Nitrite, U Negative Negative 10/07/2024 4:00 PM [facility] DTL Ketone, U 10(A) Negative mg/dL 10/07/2024 4:00 PM [facility] DTL Glucose, U Negative Negative mg/dL 10/07/2024 4:00 PM [facility] DTL Urine 10/07/2024 3:26 PM [facility] 10/07/2024 3:44 PM [facility] Martita Rodrigues M.D. LAB URINE ORDERABLES Final Result Performing Organization Address [facility] de Phone Number [facility] [address] [place] [address], [facility] [address] [place] [address] * Microscopic Manual (10/07/2024 3:26 PM [facility]) Microscopy Normal 10/07/2024 4:16 PM [facility] DTL RBC <3 <3 /hpf 10/07/2024 4:16 PM [facility] DTL WBC None Seen /hpf 10/07/2024 4:16 PM [facility] DTL Comment: ----REFERENCE VALUE---- <4 (Males) <11 (Females) Casts, Hyaline Occas /lpf 10/07/2024 4:16 PM [facility] DT Urine 10/07/2024 3:26 PM [facility] 10/07/2024 3:59 PM [facility] Martita Rodrigues M.D. LAB URINE ORDERABLES Final Result Performing Organization Address City/[facility]/ZIP Co de Phone Number [facility] [address] [place] [address] * pH, Urine (10/07/2024 3:26 PM [facility]) pH, U 5.5 4.5 - 8.0 10/07/2024 4:1 4 PM [facility] DT Urine 10/07/2024 3:26 PM [facility] 10/07/2024 3:44 PM [facility] Martita Rodrigues M.D. LAB URINE ORDERABLES Final Result Performing Organization Address City/[facility]/ZIP Co de Phone Number [facility] [address] [place] [address] * Osmolality, Urine (10/07/2024 3:26 PM [facility]) Osmolality, U 230 150 - 1150 mOsm/kg 10/07/2024 4:14 PM [facility] DT Urine 10/07/2024 3:26 PM [facility] 10/07/2024 3:44 PM [facility] Martita Rodrigues M.D. LAB URINE ORDERABLES Final Result Performing Organization Address City/[facility]/ZIP Co de Phone Number [facility] [address] [place] [address] * (ABNORMAL) Urinalysis, with Microscopic: Urine, Midstream (10/07/2024 3:26 PM [facility]) Source Urine, Urine, Midstream 10/07/2024 3:44 PM [facility] DTL Color, U Yellow 10/07/2024 3:44 PM [facility] DTL Clarity, U Clear 10/07/2024 3:44 PM [facility] DTL Protein, U 8 <26 mg/dL 10/07/2024 4:28 PM [facility] DTL Protein/Osmol ality 0.35 <0.42 ratio 10/07/2024 4:28 PM [facility] DTL Predicted 24 HR Protein, U 344(H) <229 mg/24 h 10/07/2024 4:28 PM [facility] DTL Predicted Range 109-1084 mg/24 h 10/07/2024 4:28 PM [facility] DTL Urine (Urine, Midstream) 10/07/2024 3:26 PM [facility] 10/07/2024 3:44 PM [facility] us Martita Rodrigues M.D. LAB URINE ORDERABLES Final Result Performing Organization Address City/[facility]/ZIP Co de Phone Number [facility] 200 [place] [address], [facility] DTL [facility] 200 [place] [address] * Glucose, POCT (10/07/2024 11:54 AM [facility]) Pathologist [facility] Glucose, POCT, B 91 70 - 140 mg/dL 10/07/2024 11:56 AM [facility] PCLX Site Capillary 10/07/2024 11:56 AM [facility] PCLX Blood 10/07/2024 11:5 4 AM [facility] 10/07/2024 11:57 AM [facility] us Unknown Provider LAB POCT ORDERABLES-MANUAL Aleajndrina l Result POC [facility] [address] [place] [address], [facility] PCLX [facility] 200 [place] [address] * Basic Metabolic Panel (10/07/2024 6:30 AM [facility]) Only the most recent of2 resultswithin the time period is included. Potassium, S 4.7 3.6 - 5.2 mmol/L 10/07/2024 8:01 AM [facility] DTL Sodium, S 139 135 - 145 mmol/L 10/07/2024 8:01 AM [facility] DTL Chloride, S 103 98 - 107 mmol/L 10/07/2024 8:01 AM [facility] DTL Bicarbonate, S 23 22 - 29 mmol/L 10/07/2024 8:01 AM [facility] DTL Anion Gap 13 7 - 15 10/07/2024 8:01 AM [facility] DTL BUN (Blood Urea Nitrogen), S 10 8 - 24 mg/dL 10/07/2024 8:01 AM [facility] Creatinine 0.80 0.74 - 1.35 mg/dL 10/07/2024 8:01 AM [facility] Estimated GFR (eGFR) >90 >=60 mL/min/BSA 10/07/2024 8:01 AM [facility] D[facility] Comment: Estimated GFR calculated using the 2020 CKD_EPI creatinine equation. Calcium, Total, S 8.6 8.6 - 10.0 mg/dL 10/07/2024 8:01 AM [facility] DTL Glucose, S 89 70 - 140 mg/dL 10/07/2024 8:01 AM [facility] DTL Blood (Blood, Venous) 10/07/2024 6:30 AM [facility] 10/07/2024 7:38 AM [facility] Madalyn Tariq APRN, C.N.P., D.N.P. LAB BLOOD AD D-ON Final Result [facility] [address] [place] [address], [facility] [address] [place] [address] * (ABNORMAL) Bacterial Culture, Aerobic + Susceptibility (10/06/2024 5:19 PM [facility]) Bacterial Culture, Aerobic + Susc Culture yields >4 types of aerobic and/or anaerobic bacteria[place] [phone] if further identification is clinically required. (A) 10/10/2024 1:27 PM [facility] D[facility] Bacterial Culture, Aerobic + Susc GRAM POSITIVE COCCI Growth after 1 day (A) 10/10/2024 1:27 PM [facility] D[facility] Comment: Semi-Urgent Result. Not further identified. Bacterial Culture, Aerobic + Susc GRAM POSITIVE BACILLUS Growth after 1 day (A) 10/10/2024 1:27 PM [facility] D[facility] Comment: Semi-Urgent Result. Not further identified. Bacterial Culture, Aerobic + Susc ESCHERICHIA COLI Growth after 1 day (A) 10/10/2024 1:27 PM [facility] DTL Comment:Semi-Urgent Result. Bacterial Culture, Aerobic + Susc ENTEROBACTER CLOACAE COMPLEX Growth after 1 day (A) 10/10/2024 1:27 PM [facility] DTL Comment: This organism may contain an inducible beta-lactamase. Second- or third-generation cephalosporin monotherapy may result in the emergence of high-level resistance. Preferred empiric therapy, pending antimicrobial susceptibility results, is cefepime, a fluoroquinolone, or a carbapenem, unless clinically contraindicated. Semi-Urgent This is a semi-urgent result([facility]) [facility] Fluid (Pelvis) 10/06/2024 2: 54 PM [facility] Narrative [facility] - 10/10/2024 1:27 PM [facility] Bacterial Culture: Received Bactec aerobic and Bactec anaerobic bottles us Saige Sung M.D. LAB MICROBIOLOGY - GENERAL ORDERABLES Final Result [facility] [address] [place] [address], [facility] [address] [place] [address] * Fungal Smear (10/06/2024 5:19 PM [facility]) Fungal Smear Negative. 10/06/2024 9:55 PM [facility] DTL Fluid (Pelvis) 10/06/2024 2: 54 PM [facility] Narrative [facility] - 10/06/2024 9:55 PM [facility] Bacterial Culture: Received Bactec aerobic and Bactec anaerobic bottles us Saige Sung M.D. LAB MICROBIOLOGY - GENERAL ORDERABLES Final Result Performing Organization Address [facility] Co de Phone Number [facility] [address] [place], [place] [address] [place] [address] [address] [place] [address] * (ABNORMAL) Gram Stain (10/06/2024 5:19 PM [facility]) Gram Stain White blood cells, Many(A) 10/06/2024 10:21 PM [facility] DTL Gram Stain GRAM NEGATIVE BACILLUS Moderate (A) 10/06/2024 10:21 PM [facility] DTL Gram Stain GRAM POSITIVE COCCI Moderate (A) 10/06/2024 10:21 PM [facility] DTL Fluid (Pelvis) 10/06/2024 2: 54 PM [facility] Narrative [facility] - 10/06/2024 10:21 PM [facility] Bacterial Culture: Received Bactec aerobic and Bactec anaerobic bottles Saige Sung M.D. LAB MICROBIOLOGY - GENERAL ORDERABLES Final Result Performing Organization Address [facility] Co de Phone Number [facility] [address] [place] [address], [facility] [address] [place] [address] * CT Abdomen and/or Pelvis Drain Placement (10/06/2024 4:15 PM [facility]) Anatomical Region Laterality Modality Abdominal RST LOS, Procedura l, Vascular Interventional ARZ LOS, Procedure FLA LOS, Procedural NWWI LOS N/A Computed Tomography, Compute d Tomography Impressions 10/06/2024 4:41 PM [facility] 1. Placement of a 10 Bulgarian locking pigtail drainage catheter into the right lower quadrant periappendiceal abscess with 21 cc blood-tinged purulent pale yellow fluid removed. Cultures pending. 2. Recommend flushing and aspirating the catheter with 3 ml of saline twice daily. 3. Consider sinogram in interventional radiology in a few days for catheter evaluation. NR Narrative 10/06/2024 4:41 PM [facility] EXAM: CT ABDOMEN AND/OR PELVIS DRAIN PLACEMENT PRE-PROCEDURE: Patient seen, evaluated, history reviewed, and approved for sedation. Airway, heart, and lung exam satisfactory for sedation. Discussed risks, benefits, alternatives for procedure, and/or sedation. The roles and responsibilities of care team members, residents, and fellows were discussed. Patient understands information and questions answered. Informed consent obtained from the patient. Immediately prior to starting the procedure, in the presence of the assisting personnel, a procedural pause was conducted to verify correct patient identity and verification of procedure to be performed, and as applicable, correct side and site, correct patient position, availability of implants, special equipment, or special requirements, and all image and specimen identification data. INTRAPROCEDURE: Moderate sedation was administered by sedation nurse under my supervision. The patient was continuously monitored with real time oxygen saturation, heart rate, ECG rhythm strip and blood pressure throughout administration of the sedation and performance of the procedure. The total intra-procedural sedation time was: 40 minutes. TECHNIQUE: Sterile;1% lidocaine for local anesthesia and CT Guidance. TARGET LOCATION: Right pelvis periappendiceal abscess. INTRODUCER NEEDLE: 17-gauge DRAIN TYPE/SIZE: 10 Bulgarian locking pigtail drainage catheter. VOLUME OF FLUID ASPIRATED: 21 cc APPEARANCE OF ASPIRATE: Blood tinged purulent pale yellow fluid. COMPLICATION: None. BLOOD LOSS: None. PATIENT INSTRUCTIONS: Patient may be dismissed from the radiology department when dismissal criteria met. POST-PROCEDURE DIAGNOSIS: Right lower quadrant periappendiceal abscess. Procedure Note Candelario Del Rio M.D. - 10/06/2024 EXAM: CT ABDOMEN AND/OR PELVIS DRAIN PLACEMENT PRE-PROCEDURE: Patient seen, evaluated, history reviewed, and approved forsedation. Airway, heart, and lung exam satisfactory for sedation.Discussed risks, benefits, alternatives for procedure, and/or sedation.The roles and responsibilities of care team members, residents, and fellows were discussed. Patient understandsinformation and questions answered. Informed consent obtained from thepatient. Immediately prior to starting the procedure, in the presence ofthe assisting personnel, a procedural pause was conducted to verify correct patient identity and verificationof procedure to be performed, and as applicable, correct side and site,correct patient position, availability of implants, special equipment, orspecial requirements, and all image and specimen identification data. INTRAPROCEDURE: Moderate sedation was administered by sedation nurse undermy supervision. The patient was continuously monitored with real timeoxygen saturation, heart rate, ECG rhythm strip and blood pressurethroughout administration of the sedation and performance of the procedure. The total intra-procedural sedation timewas: 40 minutes. TECHNIQUE: Sterile;1% lidocaine for local anesthesia and CT Guidance. TARGET LOCATION: Right pelvis periappendiceal abscess. INTRODUCER NEEDLE: 17-gauge DRAIN TYPE/SIZE: 10 Bulgarian locking pigtail drainage catheter. VOLUME OF FLUID ASPIRATED: 21 cc APPEARANCE OF ASPIRATE: Blood tinged purulent pale yellow fluid. COMPLICATION: None. BLOOD LOSS: None. PATIENT INSTRUCTIONS: Patient may be dismissed from the radiologydepartment when dismissal criteria met. POST-PROCEDURE DIAGNOSIS: Right lower quadrant periappendiceal abscess. IMPRESSION: 1. Placement of a 10 Bulgarian locking pigtail drainage catheter into theright lower quadrant periappendiceal abscess with 21 cc blood-tingedpurulent pale yellow fluid removed. Cultures pending. 2. Recommend flushing and aspirating the catheter with 3 ml of salinetwice daily. 3. Consider sinogram in interventional radiology in a few days forcatheter evaluation. NR Saige Sung M.D. IMG CT PROCEDURES Final Res ult * (ABNORMAL) Prothrombin Time (PT) (10/06/2024 9:15 AM [facility]) Prothrombin Time, P 16.4(H) 9.4 - 12.5 sec 10/06/2024 10:17 AM [facility] DTL INR 1.5 0.9 - 1.1 10/06/2024 10:17 AM [facility] DTL Comment: ----ADDITIONAL INFORMATION---- Standard intensity warfarin therapeutic range: 2.0 to 3.0 High intensity warfarin therapeutic range: 2.5 to 3.5 Blood (Blood, Venous) 10/06/2024 9:15 AM [facility] 10/06/2024 10:00 AM [facility] Madalyn Tariq APRN, C.N.P., D.N.P. LAB BLOOD AD D-ON Final Result [facility] [address] [place] [address], [facility] [address] [place] [address] * Interpretation of Outside CT Abdomen and or Pelvis (10/06/2024 5:26 AM [facility]) Anatomical Region Laterality Modality Abdomen, Pelvis, Abdominal R ST LOS, Abdominal ARZ LOS, Abdominal FLA LOS, Other N/A Computed Tomography Impressions 10/06/2024 5:53 AM [facility] Acute perforated appendicitis with developing abscess. Narrative 10/06/2024 5:53 AM [facility] EXAM: INTERPRETATION OF OUTSIDE CT ABDOMEN AND OR PELVIS Outside interpretation of a CT abdomen and pelvis performed with IV contrast on 10/05/2024 COMPARISON: None FINDINGS: Normal liver, decompressed gallbladder, pancreas, adrenal glands, and kidneys. Splenomegaly, measuring up to 15.4 cm. Probable markedly distended tubular structure which appears to be arising from the cecum likely represents an ill-defined dilated appendix with large 1.4 cm appendicolith near the base. The contours of the appendix become ill-defined in the right lower quadrant with complex fluid and gas collection concerning for perforated appendix with developing abscess. This conglomerate measures approximately 6.0 x 6.0 cm (series 2, image 115). Adjacent enlarged lymph nodes, likely reactive. Trace free fluid. No evidence of bowel obstruction. Enlargement of the right iliopsoas musculature without definite intramuscular abscess. Lung bases are clear. No acute osseous abnormality. Procedure Note Elza Bates M.D. - 10/06/2024 EXAM: INTERPRETATION OF OUTSIDE CT ABDOMEN AND OR PELVIS Outside interpretation of a CT abdomen and pelvis performed with IVcontrast on 10/05/2024 COMPARISON: None FINDINGS: Normal liver, decompressed gallbladder, pancreas, adrenal glands, andkidneys. Splenomegaly, measuring up to 15.4 cm. Probable markedly distended tubular structure which appears to be arisingfrom the cecum likely represents an ill-defined dilated appendix withlarge 1.4 cm appendicolith near the base. The contours of the appendixbecome ill-defined in the right lower quadrant with complex fluid and gas collection concerning for perforatedappendix with developing abscess. This conglomerate measures approximately6.0 x 6.0 cm (series 2, image 115). Adjacent enlarged lymph nodes, likely reactive. Trace free fluid. Noevidence of bowel obstruction. Enlargement of the right iliopsoasmusculature without definite intramuscular abscess. Lung bases are clear. No acute osseous abnormality. IMPRESSION: Acute perforated appendicitis with developing abscess. Letty Kevin P.A.-C. IMG CT PROCEDURES Final Result * Unspecified-Surgery Image Exam (10/06/2024 4:35 AM [facility]) 10/06/2024 4:34 AM [facility] Narrative [facility] - 10/06/2024 4:37 AM [facility] This order has been created and auto-finalized to support the import of images acquired without order. The clinical documentation to support these images can be found on the encounter that produced images. Provider Not In System IMG NON RAD IMAGING PROCE DURES Final Result Performing Organization Address [facility] Co de Phone Number [facility] NA * Bacteria / Tiff Culture, Blood # 2 (10/06/2024 3:06 AM [facility]) Only the most recent of2 resultswithin the time period is included. Pathologist [facility] [place] Bacteria/Mirtha da Culture, Blood No growth after 5 days of incubation. 10/11/2024 4:02 AM [facility] DTL Blood (Blood, Peripheral Draw) 10/06/2024 3:06 AM [facility] 10/06/2024 4:02 AM [facility] Comment:Specimen Source Site : Blood Letty Kevin P.A.-C. LAB MICROBIOLOGY - GENER AL ORDERABLES Final Result [facility] [address] [place] [address], [place] DTL [facility] [address] [place] [address] * (ABNORMAL) Hepatic Function Panel (10/06/2024 2:55 AM [facility]) Bilirubin, Total, S 0.8 0.0 - 1.2 mg/dL 10/06/2024 3:55 AM [facility] DTL Bilirubin, Direct, S 0.3 0.0 - 0.3 mg/dL 10/06/2024 3:55 AM [facility] DTL Aspartate Aminotransferase (AST), S 23 8 - 48 U/L 10/06/2024 3:55 AM [facility] DTL Alanine Aminotransferase (ALT), S 21 7 - 55 U/L 10/06/2024 3:55 AM [facility] DTL Alkaline Phosphatase, S 61 40 - 129 U/L 10/06/2024 3:55 AM [facility] DTL Albumin, S 3.4(L) 3.5 - 5.0 g/dL 10/06/2024 3:55 AM [facility] DTL Protein, Total, S 6.0(L) 6.3 - 7.9 g/dL 10/06/2024 3:55 AM [facility] DTL Blood (Blood, Venous) 10/06/2024 2:55 AM [facility] 10/06/2024 3:32 AM [facility] us Letty Kevin P.A.-C. LAB BLOOD ADD-ON Final R esult [facility] [address] [place] [address], [facility] [address] [place] [address] * (ABNORMAL) CBC with Differential, Blood (10/06/2024 2:55 AM [facility]) Hemoglobin 12.3(L) 13.2 - 16.6 g/dL 10/06/2024 3:16 AM [facility] STMA Hematocrit 35.8(L) 38.3 - 48.6 % 10/06/2024 3:16 AM [facility] Erythrocytes 4.03(L) 4.35 - 5.65 x10(12)/L 10/06/2024 3:16 AM [facility] MCV 88.8 78.2 - 97.9 fL 10/06/2024 3:16 AM [facility] RBC Distrib Width 12.9 11.8 - 14.5 % 10/06/2024 3:16 AM [facility] Platelet Count 252 135 - 317 x10(9)/L 10/06/2024 3:16 AM [facility] Leukocytes 14.8(H) 3.4 - 9.6 x10(9)/L 10/06/2024 3:16 AM [facility] Neutrophils 12.21(H) 1.56 - 6.45 x10(9)/L 10/06/2024 3:16 AM [facility] DHPM Lymphocytes 1.35 0.95 - 3.07 x10(9)/L 10/06/2024 3:16 AM [facility] Monocytes 1.08(H) 0.26 - 0.81 x10(9)/L 10/06/2024 3:16 AM [facility] Eosinophils 0.13 0.03 - 0.48 x10(9)/L 10/06/2024 3:16 AM [facility] Basophils 0.04 0.01 - 0.08 x10(9)/L 10/06/2024 3:16 AM [facility] Blood (Blood, Venous) 10/06/2024 2:55 AM [facility] 10/06/2024 3:12 AM [facility] us Letty Kevin P.A.-C. LAB BLOOD ADD-ON Final R esult [facility] [address] [place] [address], [facility] STMA [facility] [address] [place] [address] DHPM [facility] [address] [place] [address] * Type and Screen (with Reflex Antibody ID) (10/06/2024 2:55 AM [facility]) Pathologist [facility] [place] ABORh A Pos Not applicable 10/06/2024 3:32 AM [facility] STRM Antibody Screen Negative Negative 10/06/2024 3:48 AM [facility] STRM Type & Screen Expiration 10/09/2024 23:59 10/06/2024 3:32 AM [facility] STRM Testing Location Agustin DEFAULT 10/06/2024 3:14 AM [facility] STRM Blood (Blood, Venous) 10/06/2024 2:55 AM [facility] 10/06/2024 3:14 AM [facility] us Syril A Dorita P.A.-C. LAB BLOOD BANK TEST ORDAurora FERNANDES Final Result Performing Organization Address [facility] Co de Phone Number [facility] [address] STRM [facility] [address] [place] [address] * Lipase (10/06/2024 2:55 AM [facility]) Lipase, S 26 13 - 60 U/L 10/06/2024 3: 55 AM [facility] DTL Blood (Blood, Venous) 10/06/2024 2:55 AM [facility] 10/06/2024 3:32 AM [facility] Ltety Kevin P.A.-C. LAB BLOOD ADD-ON Final R esult Performing Organization Address [facility] Co de Phone Number [address] [facility] [address] [place] [address] * Lactate (10/06/2024 2:55 AM [facility]) Lactate, P 1.0 0.5 - 2.2 mmol/L 10/06/2024 3:24 AM [facility] Blood (Blood, Venous) 10/06/2024 2:55 AM [facility] 10/06/2024 3:12 AM [facility] Letty VictoriaC. LAB BLOOD NON ADD-ON Fin al Result Performing Organization Address City/[facility] Co de Phone Number [facility] [address] [place] [address] * CT ABDOMEN PELVIS W CON-Outside CT Body (10/05/2024 6:30 PM [facility]) 10/05/2024 6:27 PM [facility] Narrative [facility] - 10/05/2024 8:35 PM [facility] This order has been created and auto-finalized to support the import of outside images. If available, original interpretation can be found on the Media Tab in Chart Review, in Document Viewer, as an image in QREADS or as an Addendum. If a re-interpretation or overread is required please follow defined workflow. us Provider Not In System IMG CT PROCEDURES Final R esult [facility] NA from Last 3 Months Insurance [employer] Advance Directives For more information, please contact: [phone] * Full Code (Latest Code Status on File) Date Activated Date Inactivated Comments 10/06/2024 4:23 AM 10/08/2024 11:02 PM Question Answer Comments Full Code: Discussed Care Teams Suction Worker Relationship Specialty Start Date End Date None Reported, Pcp PCP - General Family Medicine 10/06/24
--- OUTSIDE RECORDS SUMMARY | 2024-10-19 15:35 | XMS_ITS | Encounter Summary ---
Author Organization [facility] Address [address] [place] [address] Care Team Providers Care Fresh Work Inspector Name Role Phone None Reported, Pcp Primary Care Provider Unavail able Encounter Details Date Type Department Care Team (Latest Contact Info) Description 10/05/2024 Intake [facility] Social History Tobacco Use Types Packs/Day Years Used Date Smoking Tobacco: Never Assessed [facility] Utilities Answer Date Recorded In the past 12 months has e [employer], gas, oil, or water [employer] threatened to shut off services in your [...] Date Recorded Dental: Regular Dentist Unknown 10/05/19 25 Housing Stability Answer Date Recorded What is your living situation today? I have a [facility] place to live 10/08/2024 Sex and Gender Information Value Date Recorded Sex Assigned at Not on file Legal Sex Male 8:10 PM INSIDE OUTSIDE SALES REPRESENTATIVE Gender Identity Not on file Sexual Orientation Not on file documented as of this encounter Functional Status * Intimate Partner Violence Question Answer Date of Assessment Author Within the last year, have y ou been humiliated or emotionally abused in other ways by your partner or ex-partner? No 10/08/2024 7:00 PM INSIDE OUTSIDE SALES REPRESENTATIVE Jade Haq, R.N. Within the last year, have y ou been afraid of your partner or ex-partner? No 10/08/2024 7:00 PM INSIDE OUTSIDE SALES REPRESENTATIVE Riaz Haq R.N. Within the last year, have y ou been raped or forced to have any kind of sexual activity by your partner or ex-partner? No 10/08/2024 7:00 PM INSIDE OUTSIDE SALES REPRESENTATIVE Jade Quinn, R.N. Within the last year, have y ou been kicked, hit, slapped, or otherwise physically hurt by your partner or ex-partner? No 10/08/2024 7:00 PM INSIDE OUTSIDE SALES REPRESENTATIVE Jade Quinn, R.N. documented as of this encounter Plan of Treatment Upcoming Encounters Date Type Department Care Team (Late st Contact Info) Description 11/17/2024 9:15 AM CDT Appointment Department of Radiology, [facility], in [place], [place] [address] [place] [address] Schuyler Norman APRN, C.N.P., M.S.N. [address] [place] [address] 11/17/2024 11:30 AM CDT Appointment Department of Radiology in [address] [phone] Schuyler Norman APRN, Yennifer.N.P., M.S.N. [address] [place] [phone] 11/17/2024 1:00 PM CDT Office Visit Division of Trauma Critical Care and General Surgery in [address] [phone] Schuyler Norman APRN, C.NBoom., M.S.N. [address] [place] [phone] documented as of this encounter Visit Diagnoses Not on filedocumented in this encounter Care Teams Fresh Work Inspector Relationship Specialty Start Date End Date None Reported, Pcp PCP - General Family Medicine 10/06/24 documented as of this encounter
--- OUTSIDE RECORDS SUMMARY | 2024-10-19 15:35 | XMS_ITS | Encounter Summary ---
Author Organization [facility] Address [address] [place] [address] Care Team Providers Care Advertising Photographer Name Role Phone None Reported, Pcp Primary Care Provider Unavail able Reason for Referral * Outpatient (Routine) - Closed Specialty Diagnoses / Procedures Referred By Marybel stewart Referred To Contact Radiology Diagnoses Acute Appendicitis With Perforation Localized Peritonitis And Gangrene With Abscess Procedures IR Abscess Drain Check Joseluis Daily P.A.-C. [address] [place] [phone] Phone: tel: fax: [facility] Referral ID Status Reason Start Date Expiration Date Visits Re quested Visits Authorized [id number] Closed 10/09/2024 01/09/2026 1 1 ET SLUGS INSPECTOR Reason for Visit * Outpatient (Routine) - Closed Specialty Diagnoses / Procedures Referred By Contac t Referred To Contact Radiology Diagnoses Acute Appendicitis With Perforation Localized Peritonitis And Gangrene With Abscess Procedures IR Abscess Drain Check Joseluis Daily P.A.-C. [address] [place] [phone] Phone: tel: fax: [facility] Referral ID Status Reason Start Date Expiration Date Visits Re quested Visits Authorized [id number] Closed 10/09/2024 01/09/2026 1 1 Encounter Details Date Type Department Care Team (Latest Contact Info) Description 10/12/2024 10:36 AM BULLET SLUGS INSPECTOR - 10/12/2024 12:51 PM BULLET SLUGS INSPECTOR Hospital Encounter Department of Radiology in [place], [place] [address] [place] [phone] Joseluis Daily P.A.-C. 200 [place] [phone] Leonid Santos M.D. 200 [place] [phone] Acute Appendicitis With Perforation Localized Peritonitis And Gangrene With Abscess Discharge Disposition: Home or Self Care Social History Tobacco Use Types Packs/Day Years Used Date Smoking Tobacco: Never Smokeless Tobacco: Never Tobacco Cessation:Counseling Given: Not Answered [facility] Socialtextities Answer Date Recorded In the past 12 months has e [employer], gas, oil, or water [employer] threatened to shut off services in your [...] your living situation today? I have a [facility] place to live 10/08/2024 Sex and Gender Information Value Date Recorded Sex Assigned at Not on file Legal Sex Male 8:10 PM BULLET SLUGS INSPECTOR Gender Identity Not on file Sexual Orientation Not on file documented as of this encounter Last Filed Vital Signs Vital Sign Reading Time Taken Comments Blood Pressure 122/64 10/12/2024 12:39 PM BULLET SLUGS INSPECTOR Pulse 67 10/12/2024 12:39 PM BULLET SLUGS INSPECTOR Temperature 36.5 C (97.7 F) 10/12/2024 12:39 PM BULLET SLUGS INSPECTOR Respiratory Rate 16 10/12/2024 11:34 AM BULLET SLUGS INSPECTOR Oxygen Saturation 100% 10/12/2024 12:39 PM BULLET SLUGS INSPECTOR Inhaled Oxygen Concentration - - Weight 76.4 kg (168 lb 6.9 oz) 10/12/2024 11:34 AM BULLET SLUGS INSPECTOR Height - - Body Mass Index 21.05 10/08/2024 8:15 PM BULLET SLUGS INSPECTOR documented in this encounter Medications at Time of Discharge [...] normal saline. 300 mL 10/08/2024 8:45 PM BULLET SLUGS INSPECTOR 10/08/2024 ZINC ORAL Take 1 tablet by mouth daily. OTC - unknown dose/formulation amoxicillin-pot clavulanate (Augmentin) 875-125 mg per tabletIndications :Intra-abdominal infection, community acquired Take 1 tablet by mouth every 12 (twelve) hours for 5 days Indications: Intra-abdominal infection, community acquired. 9 tablet 10/08/2024 8:45 PM BULLET SLUGS INSPECTOR 10/08/2024 documented as of this encounter Plan of Treatment Upcoming Encounters Date Type Department Care Team (Late st Contact Info) Description 11/17/2024 9:15 AM CDT Appointment Department of Radiology, [facility], in [place], [place] [address] [place] [phone] Schuyler Norman APRN, C.N.P., M.S.N. [address] [place] [phone] 11/17/2024 11:30 AM CDT Appointment Department of Radiology in [place], [place] [address] [place] [phone] Schuyler Norman APRN, C.N.P., M.S.N. [address] [place] [phone] 11/17/2024 1:00 PM CDT Office Visit Division of Trauma Critical Care and General Surgery in [address] [phone] Schuyler Norman APRN, C.N.P., M.S.N. [address] [place] [phone] documented as of this encounter Procedures Procedure Name Priority Date/Time Associated Diagnosis Comments IR ABSCESS DRAIN CHECK RAD - Routine (most inpatients and all outpatients) 10/12/2024 12:34 PM BULLET SLUGS INSPECTOR Acute Appendicitis With Perforation Localized Peritonitis And Gangrene With Abscess documented in this encounter Results * IR Abscess Drain Check (10/12/2024 12:34 PM BULLET SLUGS INSPECTOR) Anatomical Region Laterality Modality Body, Vascular Interventiona l RST LOS, Vascular Interventional ARZ LOS, Vascular Interventional FLA LOS N/A X-Ray Angiography Impressions 10/12/2024 4:08 PM BULLET SLUGS INSPECTOR Diagnostic sinogram of the right lower quadrant drain demonstrates good position and function of the 10 [place] periappendiceal abscess drain. Continue flushing with 3 cc sterile saline twice daily and follow-up at the discretion of the surgical team. NR Narrative 10/12/2024 4:08 PM BULLET SLUGS INSPECTOR EXAM: IR ABSCESS DRAIN CHECK CLINICAL HISTORY: [...] approximately 10 cc a day. TECHNIQUE: Fluoroscopic diesel instructor image demonstrates a right lower quadrant drain [...] approximately 10 cc a day. TECHNIQUE: Fluoroscopic diesel instructor image demonstrates a right lower quadrantdrain with [...] demonstrates goodposition and function of the 10 [place] periappendiceal abscess drain.Continue flushing with 3 cc sterile saline twice daily and follow-up atthe discretion of the surgical team. NR us Joseluis Daily P.A.-C. IMG IR PROCEDURES Final Res ult documented in this encounter Visit Diagnoses Diagnosis Acute Appendicitis With Perforation Localized Peritonitis And Gangrene With Abscess documented in this encounter Administered Medications Inactive Administered Medications - up to 3 most recent administrations Medication Order MAR Action Action Date Dose Rate Site iohexoL 300 mg iodine/mL solution (Omnipaque) As needed, Starting on Susan 10/12/24 at 1234, Intra-Op Given 10/12/2024 12:34 PM BULLET SLUGS INSPECTOR 8 mL documented in this encounter Active and Recently Administered Medications Times are shown in BULLET SLUGS INSPECTOR. PRN Medication Order 10/10/2024 10/11/2024 10/12/2024 iohexoL 300 mg iodine/mL solution (Omnipaque) (COMPLETED) As needed, Starting on Susan 10/12/24 at 1234, Intra-Op 1234 (Given - Provid er: Leonid Santos M.D.) documented in this encounter Care Teams Advertising Photographer Relationship Specialty Start Date End Date None Reported, Pcp PCP - General Family Medicine 10/06/24 documented as of this encounter
--- OUTSIDE RECORDS SUMMARY | 2024-10-19 15:35 | XMS_ITS | Encounter Summary ---
Author Organization [facility] Address [address] [place] [address] Care Team Providers Care Electrodynamicist Name Role Phone None Reported, Pcp Primary Care Provider Unavail able Encounter Details Date Type Department Care Team (Late st Contact Info) Description 10/19/2024 Documentation Division of Trauma Critical Care and General Surgery in [place], [place] [address] [place] [phone] Gilma Flores, ElfegoNJayP., R.N. [address] [place] [phone] Social History Tobacco Use Types Packs/Day Years Used Date Smoking Tobacco: Never Smokeless Tobacco: Never [employer] Utilities Answer Date Recorded In the past 12 months has [facility] electric, gas, oil, or water [employer] threatened to shut off services in your [...] your living situation today? 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 - 10/19/2024 1:39 PM CST Received outside call from patient and Mother. Patient with history of perforated appendix and has current drain. Was last seen in clinic on 10/[address] abdomen and sinogram, which revealed communication with bowel. Drainage at that time was seropurulent. Patient is reporting low grade fever of 99.9F. He denies fever or chills. He denies nausea and is tolerating diet well. He is having regular bowel movements. He denies abdominal pain. He states his only concerns have been low energy and light headedness. Drainage in bulb has been white to white and pink tinged to dark brown in color. Daily output has been 10 cc for several days. He continues flushes as instructed. He is attending [facility] well enough to be there. Inquires on if there is anything to do. He does not have follow up for approximately 1 month with repeat imaging with Chief surgical team. I recommend obtaining CBC at local urgent care clinic or ED to rule out any infective process, however, I have a low suspicion for this as the drain remains patent with daily output, he is experiencing no abdominal pain, fevers, or chills, is tolerating diet and voiding without issue. We discuss that having recent history of perforation with active drain can cause lack of energy anddizziness can be caused by dehydration. He states that he will be conscious of his oral intake. He will proceed to urgent care yet today for lab work and contact surgical team if there is any significant finding. He will contact surgical team if he develops any signs/symptoms of infection prior to his return. All questions answered to their apparent satisfaction. 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 [address] [place] [phone] 11/17/2024 11:30 AM CDT Appointment Department of Radiology in [address] [phone] Schuyler Norman APRN, C.N.P., M.S.N. [address] [place] [phone] 11/17/2024 1:00 PM CDT Office Visit Division of Trauma Critical Care and General Surgery in [address] [phone] Schuyler Norman APRN, C.N.P., M.S.N. [address] [place] [phone] documented as of this encounter Visit Diagnoses Not on filedocumented in this encounter Care Teams Electrodynamicist Relationship Specialty Start Date End Date None Reported, Pcp PCP - General Family Medicine 10/06/24 documented as of this encounter
--- OUTSIDE RECORDS SUMMARY | 2024-10-19 15:35 | XMS_ITS | Encounter Summary ---
Author Organization [facility] Address [address] [place] [address] Care Team Providers Care French Instructor Name Role Phone None Reported, Pcp Primary Care Provider Unavail able Encounter Details Date Type Department Care Team (Late st Contact Info) Description 10/06/2024 4:35 AM WEB DESIGN INSTRUCTOR Ancillary Procedure Department of General Surgery Social History Tobacco Use Types Packs/Day Years Used Date Smoking Tobacco: Never Dental Answer Date Recorded Dental: Regular Dentist Unknown 10/05/19 25 Sex and Gender Information Value Date Recorded Sex Assigned at Not on file 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 [address] [place] [phone] 11/17/2024 11:30 AM CDT Appointment Department of Radiology in [place], [place] [address] [place] [phone] Schuyler Norman APRN, C.N.P., M.S.N. [address] [place] [phone] 11/17/2024 1:00 PM CDT Office Visit Division of Trauma Critical Care and General Surgery in [place], [place] [address] [place] [phone] Schuyler Norman APRN, C.N.P., M.S.N. [address] [place] [phone] documented as of this encounter Procedures Procedure Name Priority Date/Time Associated Diagnosis Comments SURGERY IMAGE EXAM Routine 10/06/2024 4: 35 AM WEB DESIGN INSTRUCTOR documented in this encounter Results * Unspecified-Surgery Image Exam (10/06/2024 4:35 AM WEB DESIGN INSTRUCTOR) 10/06/2024 4:34 AM WEB DESIGN INSTRUCTOR Narrative [facility]IM[facility] - 10/06/2024 4:37 AM WEB DESIGN INSTRUCTOR This order has been created and auto-finalized to support the import of images acquired without order. The clinical documentation to support these images can be found on the encounter that produced images. us Provider Not In System IMG NON RAD IMAGING PROCE DURES Final Result [facility] NA documented in this encounter Visit Diagnoses Not on filedocumented in this encounter Care Teams French Instructor Relationship Specialty Start Date End Date None Reported, Pcp PCP - General Family Medicine 10/06/24 documented as of this encounter
--- OUTSIDE RECORDS SUMMARY | 2024-10-19 15:35 | XMS_ITS | Encounter Summary ---
Author Organization [facility] Address [address] [place] [address] Care Team Providers Care Stone Sandblaster Name Role Phone None Reported, Pcp Primary Care Provider Unavail able Reason for Referral * Outpatient (Routine) - Authorized Specialty Diagnoses / Procedures Referred By Contac t Referred To Contact Trauma Critical Care and General Surgery Schuyler Norman APRN, C.N.Adelita, M.S.N. [address] [place] [phone] Phone: tel: fax: [facility] Referral ID Status Reason Start Date Expiration Date V isits Requested Visits Authorized [id number] Authorized 10/12/2024 04/13/2026 1 1 Scheduling Instructions [employer] * MRI/CAT/PET Scan (Routine) - Authorized Specialty Diagnoses / Procedures Referred By Contac t Referred To Contact Radiology Diagnoses Acute Appendicitis With Perforation Localized Peritonitis And Gangrene With Abscess Procedures CT Abdomen Pelvis with IV Contrast Schuyler Norman APRN, C.N.P., M.S.N. [address] [place] [phone] Phone: tel: fax: [facility] Referral ID Status Reason Start Date Expiration Date V isits Requested Visits Authorized [id number] Authorized 10/12/2024 01/12/2026 1 1 E SCHOOL * Outpatient (Routine) - Authorized Specialty Diagnoses / Procedures Referred By Marybel stewart Referred To Contact Radiology Diagnoses Acute Appendicitis With Perforation Localized Peritonitis And Gangrene With Abscess Procedures IR Abscess Drain Check Schuyler Norman APRN, C.N.P., M.S.N. [address] [place] [phone] Phone: tel: fax: [facility] Referral ID Status Reason Start Date Expiration Date V isits Requested Visits Authorized [id number] Authorized 10/12/2024 01/12/2026 1 1 E SCHOOL Encounter Details Date Type Department Care Team (Late st Contact Info) Description 10/12/2024 Orders Only Division of Trauma Critical Care and General Surgery in [place], [place] [address] [place] [phone] Schuyler Norman APRN, C.NJosé Luis, M.S.N. [address] [place] [phone] Acute Appendicitis With Perforation Localized Peritonitis And Gangrene With Abscess (Primary Dx) Social History Tobacco Use Types Packs/Day Years Used Date Smoking Tobacco: Never Smokeless Tobacco: Never [facility] Utilities Answer Date Recorded In the past 12 months has [facility] [employer] gas, oil, or water [employer] threatened to shut off services in your [...] your living situation today? 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 [address] [place] [phone] 11/17/2024 11:30 AM CDT Appointment Department of Radiology in [place], [place] [address] [place] [phone] Schuyler Norman APRN, C.N.P., M.S.N. [address] [place] [phone] 11/17/2024 1:00 PM CDT Office Visit Division of Trauma Critical Care and General Surgery in [place], [place] [address] [place] [address] Schuyler Norman APRN, C.N.P., M.S.N. [address] [place] [phone] Scheduled Orders Name Type Priority Associated Diagnoses Orde r Schedule IR Abscess Drain Check Imaging RAD - Routine (most inpatients and all outpatients) Acute Appendicitis With Perforation Localized Peritonitis And Gangrene With Abscess Expected: 11/17/2024, Expires: 01/09/2026 CT Abdomen Pelvis with IV Contrast Imaging RAD - Routine (most inpatients and all outpatients) Acute Appendicitis With Perforation Localized Peritonitis And Gangrene With Abscess Expected: 11/17/2024, Expires: 01/09/2026 Scheduled Referrals Name Type Priority Associated Diagnoses Orde r Schedule Trauma Critical Care and General Surgery office visit (clinic) Outpatient Referral Routine Expected: 11/17/2024, Expires: 01/09/2026 documented as of this encounter Visit Diagnoses Diagnosis Acute Appendicitis With Perforation Localized Peritonitis And Gangrene With Abscess- Primary documented in this encounter Care Teams Stone Sandblaster Relationship Specialty Start Date End Date None Reported, Pcp PCP - General Family Medicine 10/06/24 documented as of this encounter
--- OUTSIDE RECORDS SUMMARY | 2024-10-19 15:36 | XMS_ITS | Encounter Summary ---
Author Organization [facility] Address [address] [place] [id number] Care Team Providers Care Research Rn Spec Name Role Phone None Reported, Pcp Primary Care Provider Unavail able Reason for Visit * Reason Comments Abdominal Pain * Auth/Cert (Routine) Specialty Diagnoses / Procedures Referred By Contac t Referred To Contact Diagnoses Appendicitis Acute Abdominal Pain Acute Appendicitis With Generalized Peritonitis, With Perforation And Abscess Procedures INPT LEVEL OF CARE/MED NECESSITY (INS) Referral ID Status Reason Start Date Expiration Date Visits Re quested Visits Authorized [id number] 1 1 Encounter Details Date Type Department Care Team (Latest Contact Info) Description 10/06/2024 1:25 AM DRAFTER ELECTRONIC - 10/08/2024 8:57 PM DRAFTER ELECTRONIC Hospital Encounter [facility], [facility], Fifth Floor [address] [place] [phone] Letty Kevin, PJayAJay-CJay [address] [place] [phone] Tripp Oneal M.D. [address] [place] [phone] Abdominal Pain (Primary Dx); Appendicitis Acute; Acute Appendicitis With Perforation Localized Peritonitis And Gangrene With Abscess Discharge Disposition: Home or Self Care Social History Tobacco Use Types Packs/Day Years Used Date Smoking Tobacco: Never Tobacco Cessation:Counseling Given: Not Answered [facility] Utilities Answer Date Recorded In the past 12 months has [employer], gas, oil, or water company threatened to [...] your living situation today? I have a [facility] hospital place to live 10/08/2024 Sex and Gender Information Value Date Recorded Sex Assigned at Not on file Legal Sex Male 8:10 PM DRAFTER ELECTRONIC Gender Identity Not on file Sexual Orientation Not on file documented as of this encounter Last Filed Vital Signs Vital Sign Reading Time Taken Comments Blood Pressure 101/54 10/08/2024 8:15 PM DRAFTER ELECTRONIC Pulse 63 10/08/2024 8:15 PM DRAFTER ELECTRONIC Temperature 36.7 C (98.1 F) 10/08/2024 5:15 PM DRAFTER ELECTRONIC Respiratory Rate 16 10/08/2024 5:15 PM DRAFTER ELECTRONIC Oxygen Saturation 98% 10/08/2024 8:15 PM DRAFTER ELECTRONIC Inhaled Oxygen Concentration - - Weight 75 kg (165 lb 5.5 oz) 10/06/2024 4:28 AM DRAFTER ELECTRONIC Height 190.5 cm (6' 3) 10/08/2024 8:15 PM DRAFTER ELECTRONIC Body Mass Index 20.67 10/06/2024 4:28 AM DRAFTER ELECTRONIC documented in this encounter Functional Status * Intimate Partner Violence Question Answer Date of Assessment Author Within the last year, have y ou been humiliated or emotionally abused in other ways by your partner or ex-partner? No 10/08/2024 7:00 PM DRAFTER ELECTRONIC Jade Haq, R.N. Within the last year, have y ou been afraid of your partner or ex-partner? No 10/08/2024 7:00 PM DRAFTER ELECTRONIC Riaz Haq, RJayN. Within the last year, have y ou been raped or forced to have any kind of sexual activity by your partner or ex-partner? No 10/08/2024 7:00 PM DRAFTER ELECTRONIC Jade Quinn, R.N. Within the last year, have y ou been kicked, hit, slapped, or otherwise physically hurt by your partner or ex-partner? No 10/08/2024 7:00 PM DRAFTER ELECTRONIC Jade Quinn, R.N. documented as of this encounter Discharge Summaries * Madalyn Tariq, RADHA, C.N.P., D.N.P. - 10/08/2024 1:42 PM CST DISCHARGE SUMMARY BRIEF OVERVIEW Hospital: [facility] Discharge Provider: Tripp Oneal M.D. Primary Team: [facility] Primary Care Providers: None Reported, Pcp (General) No address on file Primary Care Provider Phone Number: None Primary Care Provider Fax Number: None Admission Date: 10/06/2024 Discharge Date: 10/08/2024 PRINCIPAL DIAGNOSIS Acute Appendicitis With Perforation Localized Peritonitis And Gangrene With Abscess SECONDARY DIAGNOSES Principal Problem: Acute Appendicitis With Perforation Localized Peritonitis And Gangrene With Abscess Active Problems: Abdominal Pain Resolved Problems: * No resolved hospital problems. * DISCHARGE DISPOSITION Home or Self Care [1] ACTIVE ISSUES REQUIRING FOLLOW UP HOSPITAL SURGICAL SERVICE: CHIEF B SERVICE You will receive a follow up appointment in the mail to see a cleaning team member of the [facility] Surgical Service on 10/12/[address] scan and sinogram. If you do not receive an appointment please call [phone]. If you need to speak with them during office hours you may call the Hospital Surgical financial secretary at [phone]. If you need to reach a provider on the Hospital Surgical Service after hours, you may call the [facility] ball truing machine operator at [phone] and ask to speak the provider hardwood floor installation helper. If you have forms that need addressed by the surgery team or outside records that need to be uploaded, please email them to [email or web address] or fax them at [phone]. PRIMARY CARE PROVIDER: You should follow up with your primary care provider within one to two weeks of being discharged. This appointment will be for further assessment following your hospitalization evaluation of your pre-existing medical conditions, and review and management of your medications. Changes to your previous medications may have been made during this hospitalization and you will need to discuss those changes with your healthcare provider. Issue: CT scan and sinogram of drain What is Needed: CT, sino, clinic appointment Follow-up Appointments Arranged: Need to be scheduled OUTPATIENT FOLLOW UP For appointment details refer to your Patient Appointment Guide. TEST RESULTS PENDING AT DISCHARGE Pending Labs Order Current Status Fungal Culture, Routine In process Bacteria / Tiff Culture, Blood # 2 Preliminary result Bacteria / Tiff Culture, Blood #1 Preliminary result Bacterial Culture, Aerobic + Susceptibility Preliminary result DETAILS OF HOSPITAL STAY REASON FOR ADMISSION Appendicitis Acute Abdominal Pain Acute Appendicitis With Generalized Peritonitis, With Perforation And Abscess HOSPITAL COURSE Johnny Vann was transferred to [facility] from [facility] for management of ruptured appendicitis with associated abscess noted on CT scan there when he presented there for evaluation of diffuse abdominal pain with low- grade fever, anorexia, and nausea and vomiting. Upon transfer, theHospital Surgical Service B team was consulted and he was admitted to the general care floor. He was started on intravenous antibiotics, ceftriaxone and flagyl, and provided pain control. He underwent CT guided drain placement of a 10 Namibian looking loop pigtail drainage catheter on 10/06. 21 cc of blood tinged purulent pale yellow fluid was aspirated and sent for culture. Cultures were positive for gram + cocci and bacillus. Antibiotics were transitioned to oral Augmentin until hisnext CT and sinogram. When he was tolerating a diet, pain was well controlled with oral pain medications, he demonstratedunderstanding of drain care, and urine output and bowel function were satisfactory, he was discharged home. He received education about drain care from the nurses. He will have follow-up on 10/12/[address] scan and sinogram of his drain to assess placement and functionality. We will then determine if further antibiotic therapy is needed. CONSULTS ORDERED DURING THIS ADMISSION IP CONSULT TO GENERAL SURGERY IP CONSULT TO CARE MANAGEMENT CONDITION AT DISCHARGE improved Discharge instructions were provided to the patient and caregiver(s). Total time spent in discharge services today: [address] minutes[address] TER ELECTRONIC documented in this encounter Discharge Instructions * Attachments The following attachments cannot be sent through Care Everywhere. * Acetaminophen (By mouth) (Prydeinig) * Amoxicillin/Clavulanate Potassium (By mouth) (Prydeinig) * Senna (By mouth) (Prydeinig) * Sodium Chloride (By injection) (Prydeinig) documented in this encounter Medications at Time [...] normal saline. 300 mL 10/08/2024 8:45 PM DRAFTER ELECTRONIC 10/08/2024 ZINC ORAL Take 1 tablet by mouth daily. OTC - unknown dose/formulation amoxicillin-pot clavulanate (Augmentin) 875-125 mg per tabletIndications :Intra-abdominal infection, community acquired Take 1 tablet by mouth every 12 (twelve) hours for 5 days Indications: Intra-abdominal infection, community acquired. 9 tablet 10/08/2024 8:45 PM DRAFTER ELECTRONIC 10/08/2024 documented as of this encounter Progress Notes * Madalyn Tariq APRN, C.N.P., D.N.P. - 10/08/2024 8:32 AM CST SUBJECTIVE Mr. Vann was seen and examined by the HSS-B team in his room this morning. He denies episodes of shortness of breath, nausea and vomiting overnight. He has been tolerating a regular diet. The patient is making adequate amounts of urine and voided on his own. Patient notes that he has been passingflatus and has had a bowel movement in the last 24 hours. The patient notes his pain is well controlled with his current pain regimen. We have discuss with the patient and nursing that he can be discharged today. He is feeling comfortable with flushing and managing his drain at home. Discussed if there are any issues to please call. OBJECTIVE VITAL SIGNS Blood Pressure: 96/57, Pulse Rate: (!) 49, Resp Rate: 16, Temperature: 36.5 ??C, SpO2: 100 % I/O last 3 completed shifts: In: 4209 [P.O.:4200; Other:9] Out: 2995 [Urine:2950; Drains:45] Vitals and nursing note reviewed. Constitutional General: He is not in acute distress. Appearance: He is not ill-appearing or toxic-appearing. Cardiovascular Rate and Rhythm: Normal rate and regular rhythm. Pulmonary Effort: Pulmonary effort is normal. No respiratory distress. Breath sounds: Normal breath sounds. Abdominal General: There is no distension. Palpations: Abdomen is soft. Tenderness: There is no abdominal tenderness. Comments: CT guided ASHISH drain is to suction with purulent serosanguinous output. Drain insertion site is not leaking. No erythema. Skin General: Skin is warm. Capillary Refill: Capillary refill takes less than 2 seconds. Neurological Mental Status: He is alert. Psychiatric Mood and Affect: Mood normal. DIAGNOSTICS Lab results last 24 hours: Recent Results (from the past 24 hours) Urinalysis, with Microscopic: Urine, Midstream Collection Time: 10/07/24 3:26 PM Result Value Source Urine, Urine, Midstream Color, U Yellow Clarity, U Clear Protein, U 8 Protein/Osmolality 0.35 Predicted 24 HR Protein, U 344 (H) Predicted Range 109-1084 Osmolality, Urine Collection Time: 10/07/24 3:26 PM Result Value Osmolality, U 230 pH, Urine Collection Time: 10/07/24 3:26 PM Result Value pH, U 5.5 Dipstick, Urine Collection Time: 10/07/24 3:26 PM Result Value Hemoglobin, QL, U Negative Leukocyte Esterase, U Negative Nitrite, U Negative Ketone, U 10 (A) Glucose, U Negative Microscopic Manual Collection Time: 10/07/24 3:26 PM Result Value Microscopy Normal RBC <3 WBC None Seen Casts, Hyaline Occas CBC without Differential Collection Time: 10/08/24 5:10 AM Result Value Hemoglobin 12.8 (L) Hematocrit 38.2 (L) Erythrocytes 4.21 (L) MCV 90.7 RBC Distrib Width 12.9 Platelet Count 306 Leukocytes 7.4 ASSESSMENT / PLAN #1 Abdominal Pain #2 Acute Appendicitis With Perforation Localized Peritonitis And Gangrene With Abscess Mr. Vann is a very pleasant 18 years old male who presented to the ED on 10/06/24 with a 2 week history of abdominal pain, CT was obtained and was concerning for perforated appendicitis with right lower quadrant abscess. He was admitted to the general floor and was given IV fluids, IV antibiotics and was made NPO. He underwent a CT guided drain placement on 10/06. Drain output is purulent serosanguinous. He toleratedthis well. He was placed on a clear liquid diet yesterday after the procedure which he has been tolerating without nausea or vomiting. Yesterday we switched him to Augmentin for an oral antibiotic regimen. We rechecked his CBC to ensure his WBC remained within normal limits, which it did. He has remained afebrile and tolerates his oral intake. He learned how to flush his drains from the nursing staff. Per radiology they recommend considering sinogram in interventional radiology in a few days for catheter evaluation. We will obtain one on 10/[address] ab/pelvis with IV contrast to assess his treatment. Diet: Adult Diet Regular Activity: as tolerated VTE Prophylaxis: Heparin SQ 5,000 units TID GI Prophylaxis: not indicated Bowel Regimen: Miralax and Senokot S Pain: Tylenol Antibiotics: Augmentin until next CT/sinogram Disposition: Home today, follow up later in the week If you have any questions or concerns please page the [facility] service at [phone]. TER ELECTRONIC * Madalyn Tariq APRN, C.N.PJay, D.N.P. - 10/07/2024 11:25 AM CST SUBJECTIVE Mr. Vann was seen and examined by the S-B team in his room this morning. He reports doing well this morning. He his hospital day 2 for acute appendicitis with perforation and local abscess. He underwent drain placement yesterday. He denies episodes of shortness of breath, nausea and vomiting overnight. He has been tolerating a clear liquid diet. The patient is making adequate amounts of urineand voided on his own. Patient notes that he has been passing flatus but has not had a bowel movement in the last 24 hours. The patient notes his pain is well controlled with his current pain regimen. We have discussed with the patient and nursing that we encourage ambulation and pulmonary hygiene.He is looking forward to having a regular diet today. OBJECTIVE VITAL SIGNS Weight: 75 kg, Blood Pressure: (!) 105/54, Heart Rate: 67, Pulse Rate: (!) 56, Resp Rate: 15, Temperature: 36.8 ??C, SpO2: 98 % I/O last 3 completed shifts: In: 4373.1 [P.O.:2250; Other:6] Out: 2160 [Urine:2074; Drains:85] Vitals and nursing note reviewed. Constitutional General: He is not in acute distress. Appearance: He is not ill-appearing or toxic-appearing. Cardiovascular Rate and Rhythm: Normal rate and regular rhythm. Pulmonary Effort: Pulmonary effort is normal. No respiratory distress. Breath sounds: Normal breath sounds. Abdominal General: There is no distension. Palpations: Abdomen is soft. Tenderness: There is no abdominal tenderness. Comments: ASHISH drain is to bulb suction. Purulent, serosanguinous present in bulb. No leakage or drainage around the drain site. Skin General: Skin is warm. Capillary Refill: Capillary refill takes less than 2 seconds. Neurological Mental Status: He is alert. Psychiatric Mood and Affect: Mood normal. DIAGNOSTICS I have reviewed labs and CT. CT Abdomen and/or Pelvis Drain Placement Result Date: 10/06/2024 Impression: 1. Placement of a 10 Namibian locking pigtail drainage catheter into the right lower quadrant periappendiceal abscess with 21 cc blood-tinged purulent pale yellow fluid removed. Cultures pending. 2. Recommend flushing and aspirating the catheter with 3 ml of saline twice daily. 3. Consider sinogram in interventional radiology in a few days for catheter evaluation. NR Lab results last 24 hours: Recent Results (from the past 24 hours) Gram Stain Collection Time: 10/06/24 5:19 PM Specimen: Pelvis; Fluid Specimen Source Site: Fluid Result Value Gram Stain White blood cells, Many (A) Gram Stain GRAM NEGATIVE BACILLUS Moderate (A) Gram Stain GRAM POSITIVE COCCI Moderate (A) Fungal Smear Collection Time: 10/06/24 5:19 PM Specimen: Pelvis; Fluid Specimen Source Site: Fluid Result Value Fungal Smear Negative. CBC without Differential Collection Time: 10/07/24 6:30 AM Result Value Hemoglobin 12.6 (L) Hematocrit 38.4 Erythrocytes 4.21 (L) MCV 91.2 RBC Distrib Width 12.9 Platelet Count 264 Leukocytes 9.6 Basic Metabolic Panel Collection Time: 10/07/24 6:30 AM Result Value Potassium, S 4.7 Sodium, S 139 Chloride, S 103 Bicarbonate, S 23 Anion Gap 13 BUN (Blood Urea Nitrogen), S 10 Creatinine 0.80 Estimated GFR (eGFR) >90 Calcium, Total, S 8.6 Glucose, S 89 Glucose, POCT Collection Time: 10/07/24 11:54 AM Result Value Glucose, POCT, B 91 Site Capillary ASSESSMENT / PLAN #1 Abdominal Pain #2 Acute Appendicitis With Perforation Localized Peritonitis And Gangrene With Abscess Mr. Vann is a very pleasant 18 years old male who presented to the ED on 10/06/24 with a 2 week history of abdominal pain, CT was obtained and was concerning for perforated appendicitis with right lower quadrant abscess. He was admitted to the general floor and was given IV fluids, IV antibiotics and was made NPO. He underwent a CT guided drain placement on 10/06. Drain output is purulent serosanguinous. He toleratedthis well. He was placed on a clear liquid diet yesterday after the procedure which he has been tolerating without nausea or vomiting. Today we will switch him to Augmentin for an oral antibiotic regimen. We will recheck his CBC to ensure his WBC remains within normal limits, and make sure he remains afebrile and tolerates his oral intake. If he continues to feel well tomorrow and his labs are not concerning, he may be discharged. He will need to learn drain cares and flushing as he will discharge with drain in place. Per radiology they recommend considering sinogram in interventional radiology in a few days for catheter evaluation. We will need to verify timing of this and duration of antibiotics for DC if he tolerates them orally. Diet: Adult Diet Regular Activity: as tolerated VTE Prophylaxis: Heparin SQ 5,000 units TID GI Prophylaxis: not indicated Bowel Regimen: Miralax and Senokot S Pain: Oxycodone and Tylenol Antibiotics: will switch to Augmentin today to ensure he tolerates and that his WBC does not increase Disposition: Home in the next 24-48 hrs pending diet and antibiotic tolerance If you have any questions or concerns please page the HSS-B service at [phone]. TER ELECTRONIC * Tripp Oneal M.D. - 10/06/2024 1:45 PM CST This is a supervisory note for the HSS B Team. I agree with plans as outlined. 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 Cross-sectional imaging with perforated appendicitis with an 8 cm abscess to theright lower quadrant. The patient was admitted overnight with plans for CT-guided drain. Looking atthe patient's imaging and multiple appendicoliths, the patient is at high-risk of potentially needing abdominal exploration this hospitalization, especially if those appendicolith are outside the bowel lumen. Case was reviewed with multiple [facility] providers this morning and joint decision on drain placement, serial abdominal exams, IV antibiotics, and following clinical course. The patient's physical exam is reassuring this morning. He does have tenderness to the right lower quadrant but no rebound or guarding. Non peritonitic. Hemoglobin 12.3 and white blood cell count [id number]. Creatinine 0.7 and lactate is 1. Should the patient clinically decompensate, not get better on IV antibiotics and drain placement, then the patient will require operative intervention which could entail appendectomy, ileocecectomy, or right hemicolectomy. The patient is understanding of this and is in agreement with the plan. Please see HSS team note for any further details. TER ELECTRONIC * Rony Astorga PharmVasquez, R.Ph. - 10/06/2024 10:25 AM CST Images from the original note were not included. Pharmacist Progress Note Reason for admission: Acute Appendicitis With Perforation Localized Peritonitis And Gangrene With Abscess PMH: no pertinent PMH OBJECTIVE Home medications: Reviewed by [facility] Held: OTC supplants Changed: - New: ABX Prophylaxis: VTE - SCDs/ heparin 5000 q8h (on hold for OR 10/06/24) Renal: Serum creatinine: 0.71 mg/dL (L) 10/06/24 0255 Estimated creatinine clearance: 177.5 mL/min (A) Neuro: Pain - multimodal pain management GI: Bowel regimen ordered. ID - Microbiology (current admission) Antibiotics Dose/Rate Route Frequency Stop cefTRIAXone in dextrose (iso osm) IVPB 2 g (Rocephin) 2 g 200 mL/hr over 15 Minutes intravenous Every 24 hours metroNIDAZOLE in NaCl (iso osm) IVPB 500 mg (FlagyL) 500 mg 200 mL/hr over 30 Minutes intravenous Every 8 hours ASSESSMENT / PLAN ID (IAI): Day 1 ceftriaxone and metronidazole (as above). Follow up intra-Op Cx Medications and laboratory data have been reviewed. Pharmacy will continue to follow for medicationuse optimization. Admission Medication History Note Adherence issues: Unable to assess Medication list source: Patient and Pharmacy or dispense records Medication related information: consistently takes OTC magnesium; occasionally takes OTC boron, iron and zinc Prior to Admission Medications Med List Status: Pharmacy/RN Complete Set By: Rony Astorga PharmVasquez, R.Ph. at 10/06/2024 10:25 AM Taking? Last Dose Informant boron aspartate (BORON COMPLEX ORAL) Past Month Self Take 1 tablet by mouth daily. OTC ferrous sulfate (IRON ORAL) Past Month Self Take 1 tablet by mouth daily. OTC - unknown dose/formulation MAGNESIUM ORAL 10/04/2024 at Morning Self Take 1 tablet by mouth daily. OTC supplement (unknown dose/formulation) ZINC ORAL Past Month Self Take 1 tablet by mouth daily. OTC - unknown dose/formulation Royn Astorga Pharm.D., R.Ph. TER ELECTRONIC * Jorgito Pereyra M.D., Ph.D. - 10/06/2024 4:03 AM CST REASON FOR CONSULT Complicated appendicitis (perforation with abscess) REFERRING PROVIDER Emergency department physician SUBJECTIVE SUPERVISORY NOTE I have discussed the care of Mr. Vann with the resident/BEAD CUTTER-PA team. Please see the team's documentation from today for further details as I reviewed pertinent history, physical exam, labs, and imaging and agree with the history, physical exam, assessment, and plan. I have personally seen and evaluated the patient and formulated his care plan as a team. HISTORY OF PRESENT ILLNESS Mr. Vann is a 18 y.o. male who presents with a 2 week history of diffuse abdominal pain that subsequently became localized in the right lower quadrant. Patient had low-grade fevers, anorexia and some episodes of nausea and vomiting. The patient associated symptoms with food poisoning and was selfmedicating at home with [id number]-vig-sujfgko remedies. After nearly 2 weeks with a relief, patient therefore decided to presented to an outside facility earlier in the evening. He had a complete workup which revealed the diagnosis of a perforated appendicitis for which he was subsequently transferred to [place] for further care. Patient is otherwise healthy and a college student. I have reviewed pertinent portions of the history including medication, allergies, medical/surgicalhistory, social history, and family history REVIEW OF SYSTEMS A complete review of of systems was performed with pertinent information listed in the HPI, all other negative. OBJECTIVE VITAL SIGNS Temperature: [36.8 ??C-37.6 ??C] 37.6 ??C Resp Rate: [20] 20 Blood Pressure: (104-109)/(62-68) 104/62 SpO2: [100 %] 100 % Pulse Rate: [60-69] 69 PHYSICAL EXAM Neuro: Alert, oriented, no acute distress Head: normocephalic, atraumatic Eyes: sclera are anicteric Skin: warm, dry Abdomen: Soft, mildly distended focalized peritonitis in the right lower quadrant MSK: extremities are warm, well perfused Psychiatric: appropriate DIAGNOSTIC FINDINGS LABORATORY Recent Results (from the past 24 hours) CBC with Differential, Blood Collection Time: 10/06/24 2:55 AM Result Value Hemoglobin 12.3 (L) Hematocrit 35.8 (L) Erythrocytes 4.03 (L) MCV 88.8 RBC Distrib Width 12.9 Platelet Count 252 Leukocytes 14.8 (H) Neutrophils 12.21 (H) Lymphocytes 1.35 Monocytes 1.08 (H) Eosinophils 0.13 Basophils 0.04 Basic Metabolic Panel Collection Time: 10/06/24 2:55 AM Result Value Potassium, P 4.3 Sodium, P 137 Chloride, P 101 Bicarbonate, P 25 Anion Gap, P 11 BUN (Blood Urea Nitrogen), P 13 Creatinine 0.71 (L) Estimated GFR (eGFR) >90 Calcium, Total, P 8.8 Glucose, P 100 Hepatic Function Panel Collection Time: 10/06/24 2:55 AM Result Value Bilirubin, Total, S 0.8 Bilirubin, Direct, S 0.3 Aspartate Aminotransferase (AST), S 23 Alanine Aminotransferase (ALT), S 21 Alkaline Phosphatase, S 61 Albumin, S 3.4 (L) Protein, Total, S 6.0 (L) Lactate Collection Time: 10/06/24 2:55 AM Result Value Lactate, P 1.0 Lipase Collection Time: 10/06/24 2:55 AM Result Value Lipase, S 26 Type and Screen (with Reflex Antibody ID) Collection Time: 10/06/24 2:55 AM Result Value ABORh A Pos Antibody Screen Negative Type & Screen Expiration 10/09/2024 23:59 Testing Location [facility] No results found. Assessment #1 Abdominal Pain ASSESSMENT AND PLAN 18 y.o. male with perforated appendicitis with a 5 x 8 cm abscess in the right lower quadrant. There are appendicolith present within the base of the appendix.. The patient has a candidate for placement of a image guided percutaneous drain, IV antibiotics, pain control and prepare for an interval appendectomy in 2-3 months. I have discussed the plans with the patient and he demonstrated complete understanding. Patient is also aware that if non operative management fails, he will likely require a laparotomy. TER ELECTRONIC documented in this encounter Consult Notes * Gabrielle Varghese R.N. - 10/08/2024 1:59 PM CSTAssociated Order(s): IP CONSULT TO CARE MANAGEMENT SUBJECTIVE Double Back Operator received consult to discuss transportation supports for patient. Patient declined consult as he has arranged transportation. OBJECTIVE Patient was sitting up in bed with grandmother at bedside on FR5C room 101. ASSESSMENT / PLAN ASSESSMENT Double Back Operator met with patient due to a consult being placed for transportation assistance. Patient indicated that he has worked out a plan as his mother is going to fly in from [place] and will rent acar to bring him back to college. His grandmother that accompanies him lives in [place], [place] and will stay present until his mother is able to come. Patient stated he is staying at [facility]. PLAN Patient mother will provide transportation at discharge. 2. Double Back Operator will sign off. Gabrielle Varghese R.N. 10/08/24 TER ELECTRONIC * Aditya Rodriguez M.D. - 10/06/2024 4:35 AM CST HSS - B consult note SUBJECTIVE This is a supervisory note for Dr. Sung - please refer to their note for full details. Johnny Dunaway is a very pleasant 18 years old male presents to the ED with 2 weeks of diffuse abdominal pain, subsequently localized in the right lower quadrant. He also reports low-grade fever,some episodes nausea and emesis, and anorexia. He believe those symptoms were related to food poisoning and he took over the counter meds with partial relief. He was transferred from [facility] ED overnight after CT demonstrated perforated appendicitis with 5 x 8 cm abscess in the right lower quadrant. MEDICAL HISTORY Healthy SURGICAL HISTORY No abdominal surgeries CURRENT MEDICATIONS Pertinent Medications: None. Denies use of blood thinners or immunomodulators including steroids. SOCIAL HISTORY Never smoker. OBJECTIVE Physical Exam Constitutional: Awake and alert, in no apparent distress. Pulmonary: Breathing comfortably. No use of accessory muscles for respiration. Abdominal: Soft, tender in the right lower quadrant, no diffuse peritonitis. Musculoskeletal: No swelling. Neurologic: No focal deficits, speech clear and fluent, full sensation distally. Extremities symmetric, warm and well perfused Recent Results (from the past 24 hours) CBC with Differential, Blood Collection Time: 10/06/24 2:55 AM Result Value Hemoglobin 12.3 (L) Hematocrit 35.8 (L) Erythrocytes 4.03 (L) MCV 88.8 RBC Distrib Width 12.9 Platelet Count 252 Leukocytes 14.8 (H) Neutrophils 12.21 (H) Lymphocytes 1.35 Monocytes 1.08 (H) Eosinophils 0.13 Basophils 0.04 Basic Metabolic Panel Collection Time: 10/06/24 2:55 AM Result Value Potassium, P 4.3 Sodium, P 137 Chloride, P 101 Bicarbonate, P 25 Anion Gap, P 11 BUN (Blood Urea Nitrogen), P 13 Creatinine 0.71 (L) Estimated GFR (eGFR) >90 Calcium, Total, P 8.8 Glucose, P 100 Hepatic Function Panel Collection Time: 10/06/24 2:55 AM Result Value Bilirubin, Total, S 0.8 Bilirubin, Direct, S 0.3 Aspartate Aminotransferase (AST), S 23 Alanine Aminotransferase (ALT), S 21 Alkaline Phosphatase, S 61 Albumin, S 3.4 (L) Protein, Total, S 6.0 (L) Lactate Collection Time: 10/06/24 2:55 AM Result Value Lactate, P 1.0 Lipase Collection Time: 10/06/24 2:55 AM Result Value Lipase, S 26 Type and Screen (with Reflex Antibody ID) Collection Time: 10/06/24 2:55 AM Result Value ABORh A Pos Antibody Screen Negative Type & Screen Expiration 10/09/2024 23:59 Testing Location [facility] ASSESSMENT/PLAN Johnny Dunaway is a very pleasant 18 years old male who presents to the ED with a 2 weeks' history of abdominal pain and CT concerning for perforated appendicitis with right lower quadrant abscess. The patient is otherwise healthy, never had abdominal surgeries. We will admit him to HSS B, start him on IV antibiotics, keep him NPO, and plan for percutaneous drain placement today. Ultimately, he will require an interval appendectomy to performing 2-3 months after this acute episode. Questions and concerns were addressed. The patient is in agreement with theplan. Patient was seen with Dr. Pereyra who is in agreement with the assessment and plan. If you have any questions or concerns please page the HSS-B service at [phone]. TT: 30 minutes, CT > 50%. The patient understands and agrees with the plan of care. TER ELECTRONIC * Saige Sung M.D. - 10/06/2024 4:11 AM CSTAssociated Order(s): IP CONSULT TO GENERAL SURGERY History and Physical Hospital Day: 1 CHIEF COMPLAINT/REASON FOR VISIT: Appendicitis with abscess JOSEPH Vann is a 18 y.o. male who presents for evaluation of complicated appendicitis with abscess. He was transferred from [facility] ([facility]) after workup for R abdominal pain. Patient initially developed nausea and vomiting 2 weeks ago (09/21) which he attributed to food poisoning. These symptoms lasted for 1 day and then he felt persistent right-sided abdominal pain since then; this pain has since localized to his right lower quadrant. During this time he reports that he had 5 or 6 days without a bowel movement but flatus has since returned and he had diarrhea today. His white blood cell count was 23 at the outside hospital. Temperature was 101??. He currently endorses loss of appetite, fatigue, worsened pain with standing, flatus. Pertinent History Review: MEDICAL HISTORY None, denies significant past medical history SURGICAL HISTORY None, denies intra-abd surgical history CURRENT MEDICATIONS Pertinent Medications: None. Denies use of blood thinners or immunomodulators including steroids. ALLERGIES/CONTRAINDICATIONS Pertinent allergies to current consultation: NKDA. Other allergies listed below. FAMILY HISTORY Non-contributory SOCIAL HISTORY Non-smoker. Full History per EMR: Medical History[1] Surgical History[2] Current Medications[3] No Known Allergies reports that he has never smoked. He does not have any smokeless tobacco history on file. family history is not on file. REVIEW OF SYSTEMS A complete 10 system review of systems was completed. Pertinent positive and negative are noted in the HPI above, all other systems were reviewed and were negative. OBJECTIVE Temperature: [36.8 ??C-37.6 ??C] 37.6 ??C Resp Rate: [20] 20 Blood Pressure: (104-109)/(62-68) 104/62 SpO2: [100 %] 100 % Pulse Rate: [60-69] 69 PHSYICAL EXAM Vitals reviewed. Constitutional General: He is not in acute distress. Comments: Appears uncomfortable Pulmonary Effort: Pulmonary effort is normal. No respiratory distress. Abdominal Tenderness: There is abdominal tenderness. There is guarding. Comments: Focal tenderness to the RLQ, voluntary guarding Musculoskeletal General: Normal range of motion. Skin Coloration: Skin is pale. Neurological Mental Status: He is alert. DIAGNOSTICS Please see the record for full details Recent Labs 10/06/24 0255 HGB 12.3 L PLT 252 WBC 14.8 H Recent Labs 10/06/24 0255 NA 137 CL 101 BUN 13 CREATININE 0.71 L GLUCOSE 100 MICROBIOLOGY No results found for this visit on 10/06/24 (from the past 72 hours). IMAGING Imaging was independently reviewed. No results found. ASSESSMENT / PLAN #1 Abdominal Pain Patient is a 18-year-old male with no significant past medical history who is here for appendiceal abscess. Patient has a 5 x 8 cm appendiceal abscess with leukocytosis. He appears pale. Leukocytosishas improved to 14.8 from reported 23 since arrival to [place] ED. Reviewed CT from outside facility as well as outside documentation uploaded via [employer]. We will admit the patient for IV fluid rehydration, CT drain placement, IV antibiotics including ceftriaxone and Flagyl. He will be NPO prior to CT drain placement. Plan for interval appendectomy months after this episode. PLAN: -Admit to HSS B team -IVF -Ceftriaxone/flagyl Please reach out to HSS-B team with any questions concerns by paging [phone] (S-B). Plan and assessment were discussed with Dr. Pereyra, who was in agreement. TT: 20 minutes, CT > 50%. The patient understands and agrees with the plan of care. [1] History reviewed. No pertinent past medical history. [2] No past surgical history on file. [3] Current Facility-Administered Medications: Lactated Ringers Fixed Rate, 125 mL/hr, intravenous, Continuous, Dorita, Syril A, P.A.-C., Last Rate: 125 mL/hr at 10/06/24 020, 125 mL/hr at 10/06/24 020 No current outpatient medications on file. TER ELECTRONIC TER ELECTRONIC documented in this encounter Nursing Notes * Annika Coe R.N. - 10/08/2024 7:03 PM CST Shift Goals: Clinical Goals for the Shift: drain education Identify possible barriers to meeting goals/advancing plan of care: No notable barriers End of Shift Summary: patient doing well through out the shift, education on drain management/stripping/emptying and flushing completed, supplies provided. Patient discharging on oral ABX. He has remained afebrile, no c/o pain. VSS consistently soft/stable through out admission. Discharging this evening, awaiting for mom, arriving to [facility] from [facility] then driving to [place]. Likely to Dc around8-9 pm. Will go over discharge instructions once mom arrives. Nursing will continue lucrecia monitor and assess. TER ELECTRONIC * Gladys Granger R.N. - 10/07/2024 10:57 PM CST Shift Goals: Clinical Goals for the Shift: drain education Identify possible barriers to meeting goals/advancing plan of care: none End of Shift Summary: Patient educated by demonstration of drain cares and reviewing handout regarding pigtail drains. Including: stripping flushing and aspirating , and emptying, along with recording amounts in handout log. Patient will need to demonstrate his knowledge before discharge. Patient tolerating regular diet, voiding , passing flatus but no stools. UA was sent earlier this shift and resulted as normal. Pain being managed by every 6 hour tylenol. Problem: KNOWLEDGE DEFICIT Goal: Patient/family/caregiver demonstrates understanding of disease process, treatment plan, medications, and discharge instructions Outcome: Progressing TER ELECTRONIC * Annika Coe R.N. - 10/07/2024 12:24 PM CST Shift Goals: Clinical Goals for the Shift: drain education Shift Update: patient requested to shower, was set up and appropriate to shower independently. Patient showered for about 40 minutes, then pulled the emergency cord for assistance. Stated I feel like im going to pass out, I can't see patient assisted back to the bed; he was able to ambulate with assistance. Patient's VS obtained, slightly soft but. Blood glucose also checked; for BG of 91. Patient has been NPO for over 24-48 hours and minimal PO intake prior to admission. Today's shower was the first prolonged activity he has had since being in the hospital (primarily has been in bed) Once he got back to bed he stated he felt much better and vision had resolved. In the setting of the 40 mi nute hot shower, increased activity, no recent PO intake, it was the perfect storm to cause patientto feel faint. He was pale at the time if incident, but color returned after getting to bed. His breakfast had just arrived, he was instructed to eat his meal and was also provided a orange juice on the side. Patient started eating right away, tolerated his PO, states he feels ok, feels this has passed. Instructed to put his call light on if he needs to get up, grandmother at the bedside. 60 minute re-assessment he continues to feel well, previous symptoms have passed. AD * Annika Coe R.N. - 10/06/2024 2:30 PM CST Shift Goals: Identify possible barriers to meeting goals/advancing plan of care: clinical signs of infection End of Shift Summary: patient did well through out the shift, minimal c/o pain, neuro's intact, vitally stable, mild anxiety resolved with education and reassurance. Scheduled for a abdominal drain this afternoon. Family at the bedside, no clinical signs of sepsis in the setting of an his intraabdominal abscess. Has remained afebrile. Nursing will continue to monitor and assess. TER ELECTRONIC documented in this encounter ED Notes * Letty Kevin P.A.-C. - 10/06/2024 1:19 AM CST Images from the original note were not included. SUBJECTIVE CHIEF COMPLAINT/REASON FOR VISIT Abdominal Pain HISTORY OF PRESENT ILLNESS Johnny Vann is a 18 y.o. male with no pertinent medical history transferred via EMS from [facility] for concerns for ruptured pending with abscess. Patient reported that he had developed acute onset of abdominal pain proximally 2 weeks ago which he assumed it was secondary to food poisoning. Patient abdominal pain did not improve. Patient was seen at urgent care today who assumed that the patient was jaundice and sent him to the be seen in [facility] Emergency Department. At [facility] Emergency Department patient was febrile with a T-max of 101.7?? F, which patient received 1 g of acetaminophen. Labs remarkable for leukocytosis with left shift. CT abdomen/pelvis with a conscious was remarkable for 1. Inflammatory process in the right lower quadrant posterior to the cecum with a 5.3 x 6.0 x 8.4 Center complex gas and fluid collection and large central irregular calcified density. Findings are suspicious for ruptured.id acute appendicitis with abscess formation. No desire free air. Borderline enlarged right lower quadrant lymph nodes are likely reactive. Hepatosplenomegaly. Patient received IV antibiotics x1 dose of Zosyn at 1926 and ear pertinent 1 g at 1942. Patient was transferred ED to ED for general surgery evaluation On arrival patient is A&O x4, speaks in complete sentences clearly pauses or breaks, follow commands, move all extremities, nontoxic-appearing and in no apparent distress. Patient complained of abdominal pain located in the RLQ, pain is sharp in nature, intermittent, increased with intensity with movement with palpation, nonradiating and rated 8/10 pain scale. Patient complained of fever and chills which he had a fever of a T-max of 101?? F but patient is currently afebrile. Patient denies any other complaints. Patient denies myalgia, sore throat, loss of taste or smell, headache, neck pain, back pain, chest pain, shortness of breath, nausea/vomiting/diarrhea, dizziness, lightheadedness,, double vision, blurred vision or syncopal episode REVIEW OF SYSTEMS Constitutional: Positive for chills and fever (T-max of 101.7?? F). Negative for activity change, appetite change, diaphoresis and fatigue. HENT: Negative for congestion, drooling, ear discharge, facial swelling, hearing loss, mouth sores,nosebleeds, sinus pressure, sore throat, trouble swallowing and voice change. Eyes: Negative for photophobia, pain and visual disturbance. Respiratory: Negative for cough, hemoptysis, chest tightness, shortness of breath, wheezing and stridor. Cardiovascular: Negative for chest pain and palpitations. Gastrointestinal: Positive for abdominal pain. Negative for anal bleeding, constipation, diarrhea, hematemesis, nausea and vomiting. Genitourinary: Negative for inability to urinate, discharge, dysuria, flank pain, frequency, genital sores, hematuria, penile pain, scrotal swelling, testicular pain and urgency. Musculoskeletal: Negative for back pain, gait problem, joint swelling, myalgias, neck pain, neck stiffness and extremity pain. Skin: Negative for color change, itching, lesions, pallor, rash and wound. Neurological: Negative for dizziness, seizures, syncope, light-headedness, headaches and loss of balance. Psychiatric/Behavioral: Negative for agitation, behavioral problems, confusion, hallucinations, self-injury, substance abuse and suicidal ideas. The patient is not nervous/anxious. All other systems reviewed and are negative. OBJECTIVE Initial Vitals Temperature 10/06/24 0033 36.8 ??C Pulse Rate 10/06/24 0030 66 Heart Rate -- Resp Rate 10/06/24 0049 20 Blood Pressure 10/06/24 0030 109/68 SpO2 10/06/24 0030 100 % Pain Score 10/06/24 0037 0 - No pain PHYSICAL EXAMINATION Constitutional: Nursing note and vitals reviewed. Vital signs are normal. He appears not listless and not lethargic. He appears not cachectic. He is active and cooperative. He is easily aroused. Non-toxic appearance. He does not have a sickly appearance. He does not appear ill. No distress. HENT: Head: Normocephalic and atraumatic. No signs of injury. There is normal jaw occlusion. Right Ear: Hearing, tympanic membrane, external ear and ear canal normal. Left Ear: Hearing, tympanic membrane, external ear and ear canal normal. Nose: Nose normal. No nasal discharge. Mouth/Throat: Oropharynx is clear and moist. Mucous membranes are moist. No tonsillar exudate. Dental: Good dentition. No obvious dental caries Eyes: Conjunctivae, EOM and lids are normal. Right eye exhibits no discharge. Left eye exhibits no discharge. Pupils are equal. Periorbital area normal appearing. Neck: Trachea normal and phonation normal. Neck supple. No JVD present. No Brudzinski's sign and noKernig's sign noted. No thyroid mass and no thyroid tenderness present. Cardiovascular: Normal rate, regular rhythm, S1 normal, S2 normal, normal heart sounds, intact distal pulses, normal pulses and normal peripheral perfusion. Exam reveals no gallop, no S3, no S4, no distant heart sounds, no friction rub, no decreased pulses and no clicks. Pulses are palpable. Pulsesare no weak pulses. No murmur heard. Pulses: Dorsalis pedis pulses are 2+ on the right side, and 2+ on the left side. Posterior tibial pulses are 2+ on the right side, and 2+ on the left side. Radial pulses are 2+ on the right side, and 2+ on the left side. Capillary refill: takes less than 3 secondsEdema: no edema noted Pulmonary/Chest: Effort normal and breath sounds normal. There is normal air entry. No accessory muscle usage or stridor. No tachypnea. No respiratory distress. Expiration is no prolonged expiration.Air movement is not decreased. He has no decreased breath sounds. He has no wheezes. He has no rhonchi. He has no rales. He exhibits no retraction. Abdominal: Soft and abdomen not firm. Normal appearance, bowel sounds are normal and non-distended.exhibits no distension, no ascites, no pulsatile midline mass, no mass, no Fang-Nunez's sign and no Brant's sign. There is abdominal tenderness in the right lower quadrant. There is no rigidity, norebound, no guarding, no CVA tenderness, no tenderness at McBurney's point, negative Peguero's sign,no [place] sign and no Rovsing's sign. No hernia. Musculoskeletal: General: No tenderness, deformity or edema. Normal range of motion. Cervical back: Normal, full passive range of motion without pain, normal range of motion and neck supple. Thoracic back: Normal. Lumbar back: Normal. Right upper leg: Normal. Left upper leg: Normal. Right lower leg: Normal. Left lower leg: Normal. Lymphadenopathy: He has no cervical adenopathy. Neurological: Alert, oriented to person, place, and time and easily aroused. He has normal sensation, normal strength and cranial nerves II through XII intact. He is not disoriented and responsive. No cranial nerve deficit. Normal speech. He exhibits normal muscle tone. Coordination and gait normal. Skin: Skin is warm, dry, intact and normal color. No bruising noted. He is not diaphoretic. Psychiatric: He has a normal mood and affect. Speech pattern is normal and behavior is normal. Judgment and thought content normal. Cognition and memory are normal. ASSESSMENT/PLAN IMPRESSION AND PLAN Johnny Vann is a 18 y.o. male with no pertinent medical history transferred via EMS from [facility] for concerns for ruptured pending with abscess. Physical exam is remarkable for patient complained of abdominal pain located in the right RLQ with moderate tenderness palpationbut negative peritoneal signs. Labs remarkable for acute anemia, leukocytosis with left shift. Remainder of labs within normal limits. CT abdomen/pelvis remarkable for 1. Inflammatory process in the right lower quadrant posterior to the cecum with a 5.3 x 6.0 x 8.4 Center complex gas and fluid collection and large central irregular calcified density. Findings are suspicious for ruptured.id acute appendicitis with abscess formation. No desire free air. Patient received IV antibiotics x1 dose of Zosyn at 1926 and ear pertinent 1 g at 1942. Discussed with ED pharmacist who recommend patient does not need any additional antibiotics at this time. General neurosurgery physician Dr. Pereyra came down to the ED to evaluate patient who recommend admit patient to his service. Patient was updated about labs, imaging and plan/disposition for admission pending surgical consultation for appendicitis with abscess using every day language. Patient voiced understanding and agree with plan/dispositionl patient handoff given. DIFFERENTIAL DIAGNOSIS Complication Appendicitis with perforation and abscess, abdominal abscess, bowel perforation, colitis, SBO I reviewed previous medical records including lab results, radiology images/report and documentation from previous visits. I personally reviewed the lab result(s) and my interpretation is abnormal and documented in ED Course. I personally reviewed the radiology image(s) and reviewed the radiology report(s). The Radiology exam interpretation(s) is/are documented in ED Course. Case reviewed with other health animal care taker, including Admitting Provider and Surgery. CPR: No CPR performed. ED Course as of 10/06/24 0403 WedOct 06, 2024 0316 CBC with Differential, Blood(!): Hemoglobin 12.3(!) Hematocrit 35.8(!) Erythrocytes 4.03(!) MCV 88.8 RBC Distrib Width 12.9 Platelet Count 252 Leukocytes 14.8(!) Neutrophils 12.21(!) Lymphocytes 1.35 Monocytes 1.08(!) Eosinophils 0.13 Basophils 0.04 Remarkable for acute anemia and leukocytosis with left shift. 0324 Lactate: Lactate 1.0 Normal 0328 Basic Metabolic Panel(!): Potassium, P 4.3 Sodium, P 137 Chloride, P 101 Bicarbonate, P 25 Anion Gap, P 11 BUN (Blood Urea Nitrogen), P 13 Creatinine 0.71(!) Estimated GFR (eGFR) >90 Calcium, Total, P 8.8 Glucose, P 100 Normal 0355 Lipase: Lipase, S 26 Normal Final Diagnoses: as of 10/06/24 0403 Abdominal Pain Appendicitis Acute Letty Kevin P.A.-C. 10/06/24 0346 TER ELECTRONIC * Ghazal To R.N. - 10/06/2024 12:31 AM CST Patient here via [facility] for complaints of appendiceal abscess and general surgery eval. Patient has been sick for the past two weeks with abdominal pain. Patient was seen at urgent care todaywho then referred him to go to ED in [facility]. Patient denies pain on arrival. Antibiotics given at previous ER. 20G RAC with LR running. VSS. Ghazal To R.N. 10/06/24 0036 TER ELECTRONIC documented in this encounter Miscellaneous Notes * Hospital Course - StanMadalyn montejo APRN, C.N.Adelita, D.N.P. - 10/06/2024 6:32 AM CST Johnny Vann was transferred to [facility] from [facility] for management of ruptured appendicitis with associated abscess noted on CT scan there when he presented there for evaluation of diffuse abdominal pain with low- grade fever, anorexia, and nausea and vomiting. Upon transfer, [facility] was consulted and he was admitted to the general care floor. He was started on intravenous antibiotics, ceftriaxone and flagyl, and provided pain control. He underwent CT guided drain placement of a 10 Namibian looking loop pigtail drainage catheter on 10/06. 21 cc of blood tinged purulent pale yellow fluid was aspirated and sent for culture. Cultures were positive for gram + cocci and bacillus. Antibiotics were transitioned to oral Augmentin until hisnext CT and sinogram. When he was tolerating a diet, pain was well controlled with oral pain medications, he demonstratedunderstanding of drain care, and urine output and bowel function were satisfactory, he was discharged home. He received education about drain care from the nurses. He will have follow-up on 10/12/[address] scan and sinogram of his drain to assess placement and functionality. We will then determine if further antibiotic therapy is needed. TER ELECTRONIC TER ELECTRONIC TER ELECTRONIC TER ELECTRONIC TER ELECTRONIC TER ELECTRONIC documented in this encounter Plan of Treatment Upcoming Encounters Date Type Department Care Team (Late st Contact Info) Description 11/17/2024 9:15 AM CDT Appointment Department of Radiology, [facility], in [place], [place] [address] [place] [phone] Schuyler Noramn APRN, Yennifer.N.P., M.S.N. [address] [place] [phone] 11/17/2024 11:30 AM CDT Appointment Department of Radiology in [place], [place] [address] [place] [phone] Schuylre Norman APRN, Yennifer.N.P., M.S.N. [address] [place] [phone] 11/17/2024 1:00 PM CDT Office Visit Division of Trauma Critical Care and General Surgery in [place], [place] [address] [place] [phone] Schuyler Norman APRN, C.N.P., M.S.N. [address] [place] [phone] Pending Results Name Type Priority Associated Diagnoses Date /Time Fungal Culture, Routine Microbiology Timed Abdominal Pain Appendicitis Acute 10/06/2024 5:19 PM DRAFTER ELECTRONIC documented as of this encounter Procedures Procedure Name Priority Date/Time Associated Diagnosis Comments CBC WITHOUT DIFFERENTIAL, B Timed 10/08/2024 5:10 AM DRAFTER ELECTRONIC ADULT OXYGEN THERAPY Routine 10/07/2024 8:01 PM DRAFTER ELECTRONIC DIPSTICK, U Routine 10/07/2024 3:26 PM DRAFTER ELECTRONIC MICROSCOPIC MANUAL Routine 10/07/2024 3: 26 PM DRAFTER ELECTRONIC PH, U Routine 10/07/2024 3:26 PM DRAFTER ELECTRONIC OSMOLALITY, U Routine 10/07/2024 3:26 PM DRAFTER ELECTRONIC URINALYSIS WITH MICROSCOPIC Routine 10/07/2024 3:26 PM DRAFTER ELECTRONIC GLUCOSE POCT, B Routine 10/07/2024 11:54 AM DRAFTER ELECTRONIC ADULT OXYGEN THERAPY Routine 10/07/2024 8:01 AM DRAFTER ELECTRONIC CBC WITHOUT DIFFERENTIAL, B Timed 10/07/2024 6:30 AM DRAFTER ELECTRONIC BASIC METABOLIC PANEL, S/P Timed 10/07/2024 6:30 AM DRAFTER ELECTRONIC ADULT OXYGEN THERAPY Routine 10/06/2024 8:01 PM DRAFTER ELECTRONIC BACTERIAL CULTURE, AEROBIC + SUSC Timed 10/06/2024 5:19 PM DRAFTER ELECTRONIC Abdominal Pain Appendicitis Acute FUNGAL SMEAR Timed 10/06/2024 5:19 PM DRAFTER ELECTRONIC Abdominal Pain Appendicitis Acute GRAM STAIN Timed 10/06/2024 5:19 PM DRAFTER ELECTRONIC Abdominal Pain Appendicitis Acute FUNGAL CULTURE, ROUTINE Timed 10/06/2024 5:19 PM DRAFTER ELECTRONIC Abdominal Pain Appendicitis Acute CT ABDOMEN AND/OR PELVIS DRAIN PLACEMENT RAD - Routine (most inpatients and all outpatients) 10/06/2024 4:15 PM DRAFTER ELECTRONIC PROTHROMBIN TIME (PT), P Timed 10/06/2024 9:15 AM DRAFTER ELECTRONIC ADULT OXYGEN THERAPY Routine 10/06/2024 8:02 AM DRAFTER ELECTRONIC INTERPRETATION OF OUTSIDE CT ABDOMEN AND OR PELVIS RAD - Semiurgent (Fast; most ED patients; some inpatients) 10/06/2024 5:26 AM DRAFTER ELECTRONIC ADULT OXYGEN THERAPY Routine 10/06/2024 4:23 AM DRAFTER ELECTRONIC ADULT OXYGEN THERAPY Routine 10/06/2024 4:23 AM DRAFTER ELECTRONIC ADULT OXYGEN THERAPY Routine 10/06/2024 4:23 AM DRAFTER ELECTRONIC BACTERIA / TIFF CULTURE, BLOOD STAT 10/06/2024 3:06 AM DRAFTER ELECTRONIC HEPATIC FUNCTION PANEL, S STAT 10/06/2024 2:55 AM DRAFTER ELECTRONIC BACTERIA / TIFF CULTURE, BLOOD STAT 10/06/2024 2:55 AM DRAFTER ELECTRONIC CBC WITH DIFFERENTIAL, B STAT 10/06/2024 2:55 AM DRAFTER ELECTRONIC TYPE AND SCREEN Routine 10/06/2024 2:55 AM DRAFTER ELECTRONIC LIPASE, S/P STAT 10/06/2024 2:55 AM DRAFTER ELECTRONIC LACTATE, B/P STAT 10/06/2024 2:55 AM DRAFTER ELECTRONIC BASIC METABOLIC PANEL, S/P STAT 10/06/2024 2:55 AM DRAFTER ELECTRONIC documented in this encounter Results * (ABNORMAL) CBC without Differential (10/08/2024 5:10 AM DRAFTER ELECTRONIC) Pathologist [facility] Hemoglobin 12.8(L) 13.2 - 16.6 g/dL 10/08/2024 7:28 AM DRAFTER ELECTRONIC DTL Hematocrit 38.2(L) 38.3 - 48.6 % 10/08/2024 7:28 AM DRAFTER ELECTRONIC DTL Erythrocytes 4.21(L) 4.35 - 5.65 x10(12)/L 10/08/2024 7:28 AM DRAFTER ELECTRONIC DTL MCV 90.7 78.2 - 97.9 fL 10/08/2024 7:28 AM DRAFTER ELECTRONIC DTL RBC Distrib Width 12.9 11.8 - 14.5 % 10/08/2024 7:28 AM DRAFTER ELECTRONIC DTL Platelet Count 306 135 - 317 x10(9)/L 10/08/2024 7:28 AM DRAFTER ELECTRONIC DTL Leukocytes 7.4 3.4 - 9.6 x10(9)/L 10/08/2024 7:28 AM DRAFTER ELECTRONIC DTL Blood (Blood, Venous) 10/08/2024 5:10 AM DRAFTER ELECTRONIC 10/08/2024 5:42 AM DRAFTER ELECTRONIC us Madalyn Tariq APRN, C.N.P., FiordalizaNJayPJay LAB BLOOD AD D-ON Final Result Performing Organization Address [facility] [place] [address] * Microscopic Manual (10/07/2024 3:26 PM DRAFTER ELECTRONIC) Pathologist [facility] Microscopy Normal 10/07/2024 4:16 PM DRAFTER ELECTRONIC DTL RBC <3 <3 /hpf 10/07/2024 4:16 PM DRAFTER ELECTRONIC DTL WBC None Seen /hpf 10/07/2024 4:16 PM DRAFTER ELECTRONIC DTL Comment: ----REFERENCE VALUE---- <4 (Males) <11 (Females) Casts, Hyaline Occas /lpf 10/07/2024 4:16 PM DRAFTER ELECTRONIC DTL Urine 10/07/2024 3:26 PM DRAFTER ELECTRONIC 10/07/2024 3:59 PM DRAFTER ELECTRONIC Martita Rodrigues M.D. LAB URINE ORDERABLES Final Result Performing Organization Address [facility] [place] [address] * (ABNORMAL) Dipstick, Urine (10/07/2024 3:26 PM DRAFTER ELECTRONIC) Pathologist [facility] Hemoglobin, QL, U Negative Negative 10/07/2024 4:00 PM DRAFTER ELECTRONIC DTL Leukocyte Esterase, U Negative Negative 10/07/2024 4:00 PM DRAFTER ELECTRONIC DTL Nitrite, U Negative Negative 10/07/2024 4:00 PM DRAFTER ELECTRONIC DTL Ketone, U 10(A) Negative mg/dL 10/07/2024 4:00 PM DRAFTER ELECTRONIC DTL Glucose, U Negative Negative mg/dL 10/07/2024 4:00 PM DRAFTER ELECTRONIC DTL Urine 10/07/2024 3:26 PM DRAFTER ELECTRONIC 10/07/2024 3:44 PM DRAFTER ELECTRONIC Martita Rodrigues M.D. LAB URINE ORDERABLES Final Result Performing Organization Address City/[facility]/ZIP Co de Phone Number [facility] [address] 200 [place] [address] * pH, Urine (10/07/2024 3:26 PM DRAFTER ELECTRONIC) pH, U 5.5 4.5 - 8.0 10/07/2024 4:1 4 PM DRAFTER ELECTRONIC DTL Urine 10/07/2024 3:26 PM DRAFTER ELECTRONIC 10/07/2024 3:44 PM DRAFTER ELECTRONIC Martiat Rodrigues M.D. LAB URINE ORDERABLES Final Result Performing Organization Address [facility] Co de Phone Number [facility] [address] 200 [place] [address] * Osmolality, Urine (10/07/2024 3:26 PM DRAFTER ELECTRONIC) Osmolality, U 230 150 - 1150 mOsm/kg 10/07/2024 4:14 PM DRAFTER ELECTRONIC DTL Urine 10/07/2024 3:26 PM DRAFTER ELECTRONIC 10/07/2024 3:44 PM DRAFTER ELECTRONIC Martita Rodrigues M.D. LAB URINE ORDERABLES Final Result Performing Organization Address City/[facility]/ZIP Co de Phone Number [facility] 200 [place], [place] [id number] [place] [address] 200 [place] [address] * (ABNORMAL) Urinalysis, with Microscopic: Urine, Midstream (10/07/2024 3:26 PM DRAFTER ELECTRONIC) Source Urine, Urine, Midstream 10/07/2024 3:44 PM DRAFTER ELECTRONIC DTL Color, U Yellow 10/07/2024 3:44 PM DRAFTER ELECTRONIC DTL Clarity, U Clear 10/07/2024 3:44 PM DRAFTER ELECTRONIC DTL Protein, U 8 <26 mg/dL 10/07/2024 4:28 PM DRAFTER ELECTRONIC DTL Protein/Osmol ality 0.35 <0.42 ratio 10/07/2024 4:28 PM DRAFTER ELECTRONIC DTL Predicted 24 HR Protein, U 344(H) <229 mg/24 h 10/07/2024 4:28 PM DRAFTER ELECTRONIC DTL Predicted Range 109-1084 mg/24 h 10/07/2024 4:28 PM DRAFTER ELECTRONIC DTL Urine (Urine, Midstream) 10/07/2024 3:26 PM DRAFTER ELECTRONIC 10/07/2024 3:44 PM DRAFTER ELECTRONIC Martita Rodrigues M.D. LAB URINE ORDERABLES Final Result Performing Organization Address City/[facility]/ZIP Co de Phone Number [facility] 200 [place] [address], [facility] DTL [facility] 200 [place] [address] * Glucose, POCT (10/07/2024 11:54 AM DRAFTER ELECTRONIC) Pathologist [facility] Glucose, POCT, B 91 70 - 140 mg/dL 10/07/2024 11:56 AM DRAFTER ELECTRONIC PCLX Site Capillary 10/07/2024 11:56 AM DRAFTER ELECTRONIC PCLX Blood 10/07/2024 11:5 4 AM DRAFTER ELECTRONIC 10/07/2024 11:57 AM DRAFTER ELECTRONIC Unknown Provider LAB POCT ORDERABLES-MANUAL Alejandrina l Result POC [facility] 200 [place] [address], [facility] PCLX [facility] POC 200 [place] [address] * Basic Metabolic Panel (10/07/2024 6:30 AM DRAFTER ELECTRONIC) Potassium, S 4.7 3.6 - 5.2 mmol/L 10/07/2024 8:01 AM DRAFTER ELECTRONIC DTL Sodium, S 139 135 - 145 mmol/L 10/07/2024 8:01 AM DRAFTER ELECTRONIC DTL Chloride, S 103 98 - 107 mmol/L 10/07/2024 8:01 AM DRAFTER ELECTRONIC DTL Bicarbonate, S 23 22 - 29 mmol/L 10/07/2024 8:01 AM DRAFTER ELECTRONIC DTL Anion Gap 13 7 - 15 10/07/2024 8:01 AM DRAFTER ELECTRONIC DTL BUN (Blood Urea Nitrogen), S 10 8 - 24 mg/dL 10/07/2024 8:01 AM DRAFTER ELECTRONIC DTL Creatinine 0.80 0.74 - 1.35 mg/dL 10/07/2024 8:01 AM DRAFTER ELECTRONIC DTL Estimated GFR (eGFR) >90 >=60 mL/min/BSA 10/07/2024 8:01 AM DRAFTER ELECTRONIC DTL Comment: Estimated GFR calculated using the 2020 CKD_EPI creatinine equation. Calcium, Total, S 8.6 8.6 - 10.0 mg/dL 10/07/2024 8:01 AM DRAFTER ELECTRONIC DTL Glucose, S 89 70 - 140 mg/dL 10/07/2024 8:01 AM DRAFTER ELECTRONIC DTL Blood (Blood, Venous) 10/07/2024 6:30 AM DRAFTER ELECTRONIC 10/07/2024 7:38 AM DRAFTER ELECTRONIC Madalyn Tariq APRN, C.N.P., D.N.P. LAB BLOOD AD D-ON Final Result [address] [address], [facility] [place] [place] [address] * (ABNORMAL) CBC without Differential (10/07/2024 6:30 AM DRAFTER ELECTRONIC) Hemoglobin 12.6(L) 13.2 - 16.6 g/dL 10/07/2024 7:18 AM DRAFTER ELECTRONIC DTL Hematocrit 38.4 38.3 - 48.6 % 10/07/2024 7:18 AM DRAFTER ELECTRONIC DTL Erythrocytes 4.21(L) 4.35 - 5.65 x10(12)/L 10/07/2024 7:18 AM DRAFTER ELECTRONIC DTL MCV 91.2 78.2 - 97.9 fL 10/07/2024 7:18 AM DRAFTER ELECTRONIC DTL RBC Distrib Width 12.9 11.8 - 14.5 % 10/07/2024 7:18 AM DRAFTER ELECTRONIC DTL Platelet Count 264 135 - 317 x10(9)/L 10/07/2024 7:18 AM DRAFTER ELECTRONIC DTL Leukocytes 9.6 3.4 - 9.6 x10(9)/L 10/07/2024 7:18 AM DRAFTER ELECTRONIC DTL Blood (Blood, Venous) 10/07/2024 6:30 AM DRAFTER ELECTRONIC 10/07/2024 7:05 AM DRAFTER ELECTRONIC Elfego Reyes APRNNJayP., D.N.P. LAB BLOOD AD D-ON Final Result [facility] 200 [place] [address] * Fungal Smear (10/06/2024 5:19 PM DRAFTER ELECTRONIC) Fungal Smear Negative. 10/06/2024 9:55 PM DRAFTER ELECTRONIC DTL Fluid (Pelvis) 10/06/2024 2: 54 PM DRAFTER ELECTRONIC Narrative [facility] - 10/06/2024 9:55 PM DRAFTER ELECTRONIC Bacterial Culture: Received Bactec aerobic and Bactec anaerobic bottles Saige Sung M.D. LAB MICROBIOLOGY - GENERAL ORDERABLES Final Result Performing Organization Address City/[facility]/ZIP Co de Phone Number [facility] 200 [place] [address], [facility] 200 [place] [address] * (ABNORMAL) Gram Stain (10/06/2024 5:19 PM DRAFTER ELECTRONIC) Gram Stain White blood cells, Many(A) 10/06/2024 10:21 PM DRAFTER ELECTRONIC DTL Gram Stain GRAM NEGATIVE BACILLUS Moderate (A) 10/06/2024 10:21 PM DRAFTER ELECTRONIC DTL Gram Stain GRAM POSITIVE COCCI Moderate (A) 10/06/2024 10:21 PM DRAFTER ELECTRONIC DTL Fluid (Pelvis) 10/06/2024 2: 54 PM DRAFTER ELECTRONIC Narrative [facility] - 10/06/2024 10:21 PM DRAFTER ELECTRONIC Bacterial Culture: Received Bactec aerobic and Bactec anaerobic bottles Saige Sung M.D. LAB MICROBIOLOGY - GENERAL ORDERABLES Final Result [facility] [address] [place] [address], [facility] DTL [facility] [address] [place] [address] * (ABNORMAL) Bacterial Culture, Aerobic + Susceptibility (10/06/2024 5:19 PM DRAFTER ELECTRONIC) Bacterial Culture, Aerobic + Susc Culture yields >4 types of aerobic and/or anaerobic bacteria[place] [phone] if further identification is clinically required. (A) 10/10/2024 1:27 PM DRAFTER ELECTRONIC DTL Bacterial Culture, Aerobic + Susc GRAM POSITIVE COCCI Growth after 1 day (A) 10/10/2024 1:27 PM DRAFTER ELECTRONIC DTL Comment: Semi-Urgent Result. Not further identified. Bacterial Culture, Aerobic + Susc GRAM POSITIVE BACILLUS Growth after 1 day (A) 10/10/2024 1:27 PM DRAFTER ELECTRONIC DTL Comment: Semi-Urgent Result. Not further identified. Bacterial Culture, Aerobic + Susc ESCHERICHIA COLI Growth after 1 day (A) 10/10/2024 1:27 PM DRAFTER ELECTRONIC DTL Comment:Semi-Urgent Result. Bacterial Culture, Aerobic + Susc ENTEROBACTER CLOACAE COMPLEX Growth after 1 day (A) 10/10/2024 1:27 PM DRAFTER ELECTRONIC DTL Comment: This organism may contain an inducible beta-lactamase. Second- or third-generation cephalosporin monotherapy may result in the emergence of high-level resistance. Preferred empiric therapy, pending antimicrobial susceptibility results, is cefepime, a fluoroquinolone, or a carbapenem, unless clinically contraindicated. Semi-Urgent This is a semi-urgent result(GOODRICH) [facility] Fluid (Pelvis) 10/06/2024 2: 54 PM DRAFTER ELECTRONIC Narrative [facility] - 10/10/2024 1:27 PM DRAFTER ELECTRONIC Bacterial Culture: Received Bactec aerobic and Bactec anaerobic bottles us Saige Sung M.D. LAB MICROBIOLOGY - GENERAL ORDERABLES Final Result [facility] [address] [place] [address], [place] [facility] [address] [place] [address] * CT Abdomen and/or Pelvis Drain Placement (10/06/2024 4:15 PM DRAFTER ELECTRONIC) Anatomical Region Laterality Modality Abdominal RST LOS, Procedura l, Vascular Interventional ARZ LOS, Procedure FLA LOS, Procedural NWWI LOS N/A Computed Tomography, Compute d Tomography Impressions 10/06/2024 4:41 PM DRAFTER ELECTRONIC 1. Placement of a 10 Namibian locking pigtail drainage catheter into the right lower quadrant periappendiceal abscess with 21 cc blood-tinged purulent pale yellow fluid removed. Cultures pending. 2. Recommend flushing and aspirating the catheter with 3 ml of saline twice daily. 3. Consider sinogram in interventional radiology in a few days for catheter evaluation. NR Narrative 10/06/2024 4:41 PM DRAFTER ELECTRONIC EXAM: CT ABDOMEN AND/OR PELVIS DRAIN PLACEMENT [...] abscess. INTRODUCER NEEDLE: 17-gauge DRAIN TYPE/SIZE: 10 Namibian locking pigtail drainage catheter. VOLUME OF FLUID [...] abscess. INTRODUCER NEEDLE: 17-gauge DRAIN TYPE/SIZE: 10 Namibian locking pigtail drainage catheter. VOLUME OF FLUID ASPIRATED: 21 cc APPEARANCE OF ASPIRATE: Blood tinged purulent pale yellow fluid. COMPLICATION: None. BLOOD LOSS: None. PATIENT INSTRUCTIONS: Patient may be dismissed from the radiologydepartment when dismissal criteria met. POST-PROCEDURE DIAGNOSIS: Right lower quadrant periappendiceal abscess. IMPRESSION: 1. Placement of a 10 Namibian locking pigtail drainage catheter into theright lower quadrant periappendiceal abscess with 21 cc blood-tingedpurulent pale yellow fluid removed. Cultures pending. 2. Recommend flushing and aspirating the catheter with 3 ml of salinetwice daily. 3. Consider sinogram in interventional radiology in a few days forcatheter evaluation. NR Saige Sung M.D. IMG CT PROCEDURES Final Res ult * (ABNORMAL) Prothrombin Time (PT) (10/06/2024 9:15 AM DRAFTER ELECTRONIC) Prothrombin Time, P 16.4(H) 9.4 - 12.5 sec 10/06/2024 10:17 AM DRAFTER ELECTRONIC DTL INR 1.5 0.9 - 1.1 10/06/2024 10:17 AM DRAFTER ELECTRONIC DTL Comment: ----ADDITIONAL INFORMATION---- Standard intensity warfarin therapeutic range: 2.0 to 3.0 High intensity warfarin therapeutic range: 2.5 to 3.5 Blood (Blood, Venous) 10/06/2024 9:15 AM DRAFTER ELECTRONIC 10/06/2024 10:00 AM DRAFTER ELECTRONIC Madalyn Tariq APRN, C.N.P., D.N.P. LAB BLOOD AD D-ON Final Result [facility] [address] [place] [address], [facility] [address] [place] [address] * Interpretation of Outside CT Abdomen and or Pelvis (10/06/2024 5:26 AM DRAFTER ELECTRONIC) Anatomical Region Laterality Modality Abdomen, Pelvis, Abdominal R ST LOS, Abdominal ARZ LOS, Abdominal FLA LOS, Other N/A Computed Tomography Impressions 10/06/2024 5:53 AM DRAFTER ELECTRONIC Acute perforated appendicitis with developing abscess. Narrative 10/06/2024 5:53 AM DRAFTER ELECTRONIC EXAM: INTERPRETATION OF OUTSIDE CT ABDOMEN AND [...] IMPRESSION: Acute perforated appendicitis with developing abscess. us Letty Kevin P.A.-C. IMG CT PROCEDURES Final Result * Bacteria / Tiff Culture, Blood # 2 (10/06/2024 3:06 AM DRAFTER ELECTRONIC) Bacteria/Mirtha da Culture, Blood No growth after 5 days of incubation. 10/11/2024 4:02 AM DRAFTER ELECTRONIC DTL Blood (Blood, Peripheral Draw) 10/06/2024 3:06 AM DRAFTER ELECTRONIC 10/06/2024 4:02 AM DRAFTER ELECTRONIC Comment:Specimen Source Site : Blood us Letty Kevin P.A.-C. LAB MICROBIOLOGY - GENER AL ORDERABLES Final Result Performing Organization Address [facility]/ZIP Co de Phone Number [facility] [address] [place] [address] * Type and Screen (with Reflex Antibody ID) (10/06/2024 2:55 AM DRAFTER ELECTRONIC) Pathologist [facility] ABORh A Pos Not applicable 10/06/2024 3:32 AM DRAFTER ELECTRONIC STRM Antibody Screen Negative Negative 10/06/2024 3:48 AM DRAFTER ELECTRONIC STRM Type & Screen Expiration 10/09/2024 23:59 10/06/2024 3:32 AM DRAFTER ELECTRONIC STRM Testing Location Krypton DEFAULT 10/06/2024 3:14 AM DRAFTER ELECTRONIC [facility] Blood (Blood, Venous) 10/06/2024 2:55 AM DRAFTER ELECTRONIC 10/06/2024 3:14 AM DRAFTER ELECTRONIC Letty Kevin P.A.-C. LAB BLOOD BANK TEST ORDE RABLES Final Result Performing Organization Address [facility] Co de Phone Number [facility] [address] [place] [address] * Bacteria / Tiff Culture, Blood #1 (10/06/2024 2:55 AM DRAFTER ELECTRONIC) [facility] Bacteria/Mirtha da Culture, Blood No growth after 5 days of incubation. 10/11/2024 4:02 AM DRAFTER ELECTRONIC DTL Blood (Blood, Peripheral Draw) 10/06/2024 2:55 AM DRAFTER ELECTRONIC 10/06/2024 4:01 AM DRAFTER ELECTRONIC Comment:Specimen Source Site : Blood us Letty Kevin P.A.-C. LAB MICROBIOLOGY - GENER AL ORDERABLES Final Result Performing Organization Address City/[facility]/ZIP Co de Phone Number [facility] [address] [place] [address], [facility] 200 [place] [address] * Lipase (10/06/2024 2:55 AM DRAFTER ELECTRONIC) Lipase, S 26 13 - 60 U/L 10/06/2024 3: 55 AM DRAFTER ELECTRONIC DTL Blood (Blood, Venous) 10/06/2024 2:55 AM DRAFTER ELECTRONIC 10/06/2024 3:32 AM DRAFTER ELECTRONIC us Letty Villanueva.A.-C. LAB BLOOD ADD-ON Final R esult Performing Organization Address City/[facility]/ZIP Co de Phone Number [facility] [address] DTL [facility] 200 [place] [address] * Lactate (10/06/2024 2:55 AM DRAFTER ELECTRONIC) Pathologist [facility] Lactate, P 1.0 0.5 - 2.2 mmol/L 10/06/2024 3:24 AM DRAFTER ELECTRONIC STMA Blood (Blood, Venous) 10/06/2024 2:55 AM DRAFTER ELECTRONIC 10/06/2024 3:12 AM DRAFTER ELECTRONIC us Letty Villanueva.A.-C. LAB BLOOD NON ADD-ON Fin al Result Performing Organization Address City/[facility]/ZIP Co de Phone Number [facility] [address] [facility] 200 [place] [address] * (ABNORMAL) Hepatic Function Panel (10/06/2024 2:55 AM DRAFTER ELECTRONIC) Bilirubin, Total, S 0.8 0.0 - 1.2 mg/dL 10/06/2024 3:55 AM DRAFTER ELECTRONIC DTL Bilirubin, Direct, S 0.3 0.0 - 0.3 mg/dL 10/06/2024 3:55 AM DRAFTER ELECTRONIC DTL Aspartate Aminotransferase (AST), S 23 8 - 48 U/L 10/06/2024 3:55 AM DRAFTER ELECTRONIC DTL Alanine Aminotransferase (ALT), S 21 7 - 55 U/L 10/06/2024 3:55 AM DRAFTER ELECTRONIC DTL Alkaline Phosphatase, S 61 40 - 129 U/L 10/06/2024 3:55 AM DRAFTER ELECTRONIC DTL Albumin, S 3.4(L) 3.5 - 5.0 g/dL 10/06/2024 3:55 AM DRAFTER ELECTRONIC DTL Protein, Total, S 6.0(L) 6.3 - 7.9 g/dL 10/06/2024 3:55 AM DRAFTER ELECTRONIC DTL Blood (Blood, Venous) 10/06/2024 2:55 AM DRAFTER ELECTRONIC 10/06/2024 3:32 AM DRAFTER ELECTRONIC us Letty Kevin P.A.-C. LAB BLOOD ADD-ON Final R esult [facility] [address] [place] [address], [facility] [address] [place] [address] * (ABNORMAL) Basic Metabolic Panel (10/06/2024 2:55 AM DRAFTER ELECTRONIC) Potassium, P 4.3 3.6 - 5.2 mmol/L 10/06/2024 3:28 AM DRAFTER ELECTRONIC STMA Sodium, P 137 135 - 145 mmol/L 10/06/2024 3:28 AM DRAFTER ELECTRONIC STMA Chloride, P 101 98 - 107 mmol/L 10/06/2024 3:28 AM DRAFTER ELECTRONIC STMA Bicarbonate, P 25 22 - 29 mmol/L 10/06/2024 3:28 AM DRAFTER ELECTRONIC STMA Anion Gap, P 11 7 - 15 10/06/2024 3:28 AM DRAFTER ELECTRONIC STMA BUN (Blood Urea Nitrogen), P 13 8 - 24 mg/dL 10/06/2024 3:28 AM DRAFTER ELECTRONIC STMA Creatinine 0.71(L) 0.74 - 1.35 mg/dL 10/06/2024 3:28 AM DRAFTER ELECTRONIC STMA Estimated GFR (eGFR) >90 >=60 mL/min/BSA 10/06/2024 3:28 AM DRAFTER ELECTRONIC STMA Comment: Estimated GFR calculated using the 2020 CKD_EPI creatinine equation. Calcium, Total, P 8.8 8.6 - 10.0 mg/dL 10/06/2024 3:28 AM DRAFTER ELECTRONIC STMA Glucose, P 100 70 - 140 mg/dL 10/06/2024 3:28 AM DRAFTER ELECTRONIC STMA Blood (Blood, Venous) 10/06/2024 2:55 AM DRAFTER ELECTRONIC 10/06/2024 3:12 AM DRAFTER ELECTRONIC us Letty Kevin P.A.-C. LAB BLOOD ADD-ON Final R esult [facility] [address] [place] [address], [facility] STMA [facility] [address] [place] [address] * (ABNORMAL) CBC with Differential, Blood (10/06/2024 2:55 AM DRAFTER ELECTRONIC) Hemoglobin 12.3(L) 13.2 - 16.6 g/dL 10/06/2024 3:16 AM DRAFTER ELECTRONIC STMA Hematocrit 35.8(L) 38.3 - 48.6 % 10/06/2024 3:16 AM DRAFTER ELECTRONIC STMA Erythrocytes 4.03(L) 4.35 - 5.65 x10(12)/L 10/06/2024 3:16 AM DRAF[facility] STMA MCV 88.8 78.2 - 97.9 fL 10/06/2024 3:16 AM [facility] STMA RBC Distrib Width 12.9 11.8 - 14.5 % 10/06/2024 3:16 AM [facility] STMA Platelet Count 252 135 - 317 x10(9)/L 10/06/2024 3:16 AM [facility] STMA Leukocytes 14.8(H) 3.4 - 9.6 x10(9)/L 10/06/2024 3:16 AM [facility] STMA Neutrophils 12.21(H) 1.56 - 6.45 x10(9)/L 10/06/2024 3:16 AM [facility] DHPM Lymphocytes 1.35 0.95 - 3.07 x10(9)/L 10/06/2024 3:16 AM [facility] STMA Monocytes 1.08(H) 0.26 - 0.81 x10(9)/L 10/06/2024 3:16 AM [facility] STMA Eosinophils 0.13 0.03 - 0.48 x10(9)/L 10/06/2024 3:16 AM [facility] STMA Basophils 0.04 0.01 - 0.08 x10(9)/L 10/06/2024 3:16 AM [facility] STMA Blood (Blood, Venous) 10/06/2024 2:55 AM [facility] 10/06/2024 3:12 AM [facility] us Letty Kevin P.A.-C. LAB BLOOD ADD-ON Final R esult [facility] [facility] [address] [place] [address], [place] [facility] [address] [place] [address] [facility] [address] [place] [address] documented in this encounter Visit Diagnoses Diagnosis Acute Appendicitis With Perforation Localized Peritonitis And Gangrene With Abscess- Primary Abdominal Pain Appendicitis Acute Acute Appendicitis With Perforation Localized Peritonitis And Gangrene With Abscess Abdominal Pain documented in this encounter Admitting Diagnoses Diagnosis Abdominal Pain documented in this encounter Administered Medications Inactive Administered Medications - up to 3 most recent administrations Medication Order MAR Action Action Date Dose Rate Site acetaminophen tablet 1,000 mg (TylenoL) 1,000 mg, oral, Every 6 hours, First dose on Wed10/06/24 at 0424, If multiple analgesics ordered for mild pain: sequence of administration: acetaminophen, ibuprofen, tramadol, oxycodone. Given 10/07/2024 10:05 PM [facility] 1,000 mg Given 10/07/2024 5:38 PM [facility] 1,000 mg Given 10/07/2024 10:25 AM [facility] 1,000 mg amoxicillin-pot clavulanate 875-125 mg per tablet 1 tablet (Augmentin) 1 tablet, oral, Every 12 hours scheduled, First dose on Wed10/07/24 at 1200, Drug Monitoring Program: Pharmacist to adjust medication dosing based on indication and drug clearance factors., Indications: Intra-abdominal infection, community acquiredIndications:Intra-abdominal infection, community acquired Given 10/08/2024 8:07 PM [facility] 1 tablet Given 10/08/2024 10:19 AM [facility] 1 tablet Given 10/07/2024 8:26 PM [facility] 1 tablet cefTRIAXone in dextrose (iso osm) IVPB 2 g (Rocephin) 2 g, intravenous, at 200 mL/hr, Administer over 15 Minutes, Every 24 hours, First dose on Wed10/06/24 at 0430, Drug Monitoring Program: Pharmacist to adjust medication dosing based on indication and drug clearance factors., Indications: Intra-abdominal infection, community acquiredIndications:Intra-abdominal infection, community acquired New Bag 10/07/2024 5:35 AM [facility] 2 g 2 00 mL/hr New Bag 10/06/2024 5:50 AM [facility] 2 g 200 mL/hr fentaNYL injection 25 mcg (Sublimaze) 25 mcg, intravenous, Every 2 min PRN, sedation, Administer over 1 minute immediately prior to the procedure. May repeat every 2 minutes to a maximum of 200 mcg, until pain score of 3 or less, or until the patient meets the pain comfort goal, or RASS 0 to -2. Do not give if respiratory rate is less than 8 breaths/minute., Starting on Wed10/06/24 at 1524, For 3 hours, Intraprocedure (RAD) Given 10/06/2024 3:52 PM [facility] 25 mcg Given 10/06/2024 3:44 PM [facility] 25 mcg Given 10/06/2024 3:42 PM [facility] 25 mcg heparin (porcine) injection 5,000 Units 5,000 Units, subcutaneous, Every 8 hours scheduled, First dose on Wed10/06/24 at 1202 Given 10/08/2024 5:13 AM [facility] 5,000 Units Left Upper Arm (Back ) Given 10/07/2024 10:05 PM [facility] 5,000 Units Left Upper Arm (Back) Given 10/07/2024 1:26 PM [facility] 5,000 Units R ight Upper Arm (Back) iohexoL 300 mg iodine/mL solution 150 mL (Omnipaque) 150 mL, intravenous, Once in imaging, contrast, Starting on Wed10/06/24 at 1525, For 1 dose Given 10/06/2024 3:25 PM [facility] 140 mL Lactated Ringer's 75 mL/hr, intravenous, Continuous, Starting on Wed10/06/24 at 0424 Restarted 10/06/2024 4:28 AM [facility] 75 mL/hr 75 mL/hr Lactated Ringers Fixed Rate 75 mL/hr, intravenous, Continuous, Starting on Wed10/06/24 at 0158 Rate/Dose Verify 10/07/2024 1:00 AM [facility] 75 mL/hr 75 mL/hr Rate/Dose Change 10/06/2024 9:58 PM [facility] 75 mL/hr 75 mL/h r New Bag 10/06/2024 9:46 AM [facility] 125 mL/hr 125 mL/hr lidocaine 10 mg/mL (1 %) injection (Xylocaine) As needed, Starting on Wed10/06/24 at 1545, Intra-Op Given 10/06/2024 3:45 PM [facility] 7 mL Abdominal Tissue metroNIDAZOLE in NaCl (iso osm) IVPB 500 mg (FlagyL) 500 mg, intravenous, at 200 mL/hr, Administer over 30 Minutes, Every 8 hours, First dose on Wed10/06/24 at 0424, Drug Monitoring Program: Pharmacist to adjust medication dosing based on indication and drug clearance factors., Indications: Intra-abdominal infection, community acquiredIndications:Intra -abdominal infection, community acquired New Bag 10/07/2024 4:05 AM [facility] 500 mg 200 mL/hr New Bag 10/06/2024 8:17 PM [facility] 500 mg 200 mL/hr New Bag 10/06/2024 12:21 PM [facility] 500 mg 200 mL/hr midazolam (PF) injection 0.5 mg (Versed) 0.5 mg, intravenous, Every 2 min PRN, sedation, RASS -1, Starting on Wed10/06/24 at 1524, Intraprocedure (RAD), May repeat every 2 minutes for a maximum of 5 mg. Do not give if respiratory rate is less than 8 breaths/minute. Given 10/06/2024 3:38 PM [facility] 0.5 mg Given 10/06/2024 3:34 PM [facility] 0.5 mg midazolam (PF) injection 1 mg (Versed) 1 mg, intravenous, Every 2 min PRN, sedation, RASS 0, Starting on Wed10/06/24 at 1524, Intraprocedure (RAD), May repeat every 2 minutes for a maximum of 5 mg. Do not give if respiratory rate is less than 8 breaths/minute. Given 10/06/2024 3 :48 PM [facility] 1 mg Given 10/06/2024 3:42 PM [facility] 1 mg Given 10/06/2024 3:40 PM [facility] 1 mg oxyCODONE IR tablet 10 mg (Roxicodone) 10 mg, oral, Every 4 hours PRN, severe pain or score 7-10 of 10, for breakthrough pain, Starting on Wed10/06/24 at 0423, Pain unrelieved by other oral analgesics. oxyCODONE IR tablet 5 mg (Roxicodone) 5 mg, oral, Every 4 hours PRN, moderate pain or score 4-6 of 10, for breakthrough pain, Starting on Wed10/06/24 at 0423, Pain unrelieved by other oral analgesics. sennosides tablet 17.2 mg (Senokot) 17.2 mg, oral, Daily, First dose on Wed10/06/24 at 0900, Do not give if patient has diarrhea Given 10/07/2024 10:25 AM [facility] 17.2 mg sodium chloride (PF) 0.9 % injection 50 mL 50 mL, intravenous, Once, On Wed10/06/24 at 1545, For 1 dose Given 10/06/2024 3:25 PM [facility] 50 mL documented in this encounter Active and Recently Administered Medications Times are shown in [facility]. Scheduled Medication Order 10/06/2024 10/07/2024 10/08/2024 acetaminophen tablet 1,000 mg (TylenoL) 1,000 mg, oral, Every 6 hours, First dose on Wed10/06/24 at 0424, If multiple analgesics ordered for mild pain: sequence of administration: acetaminophen, ibuprofen, tramadol, oxycodone. 0506 (Not Given - Provider: Jade Rodriguez R.N. - Reason: Patient/family refused)0948 (Given - Provider: Myah Jay)1630 (Not Given - Provider: Gladys Granger R.N. - Reason: Patient/family refused)2148 (Given - Provider: Gladys Granger R.N.) 0406 (Not Given - Provider: Jade Rodriguez R.N. - Reason: Patient/family refused)1025 (Given - Provider: Annika Coe R.N.)1738 (Given - Provider: Annika Coe R.N.)2205 (Given - Provider: Gladys Granger R.N.) 0513 (Not Given - Provider: Jade Rodriguez R.N. - Reason: Patient/family refused)1019 (Not Given - Provider: Annika Coe R.N. - Reason: Patient/family refused - Comment: Patient Sleeping)1750 (Not Given - Provider: Annika Coe R.N. - Reason: Patient/family refused) amoxicillin-pot clavulanate 875-125 mg per tablet 1 tablet (Augmentin) 1 tablet, oral, Every 12 hours scheduled, First dose on Wed10/07/24 at 1200, Drug Monitoring Program: Pharmacist to adjust medication dosing based on indication and drug clearance factors., Indications: Intra-abdominal infection, community acquired 132 (Given - Provider: Annika Coe R.N.)2025 (Given - Provider: Gladys Granger R.N.) 101 (Given - Provider: Annika Coe R.N. - Comment: Patient Sleeping)2006 (Given - Provider: Jade Rodriguez R.N. - Comment: pt d/c)2024 (Not Given - Provider: Jade Rodriguez R.N. - Reason: Other) cefTRIAXone in dextrose (iso osm) IVPB 2 g (Rocephin) (CANCELED) 2 g, intravenous, at 200 mL/hr, Administer over 15 Minutes, Every 24 hours, First dose on Wed10/06/24 at 0430, Drug Monitoring Program: Pharmacist to adjust medication dosing based on indication and drug clearance factors., Indications: Intra-abdominal infection, community acquired 0550 (New Bag - Provider: Jade Rodriguez R.N.) 0535 (New Bag - Provider: Jade Rodriguez R.N.) heparin (porcine) injection 5,000 Units 5,000 Units, subcutaneous, Every 8 hours scheduled, First dose on Wed10/06/24 at 1202 0742 (Held by provider - Provider: Madalyn Tariq APRN, C.N.P., D.N.P. - Comment: Holding for drain placement)1202 (Not Given - Provider: Anniak Coe R.N. - Reason: See Provider Order - Comment: drain placement scheduled)175 (Unheld by provider - Provider: Julianna Vrema M.D.)2148 (Given - Provider: Gladys Granger R.N.) 0536 (Given - Provider: Jade Rodriguez R.N.)1326 (Given - Provider: Annika Coe R.N.)2205 (Given - Provider: Gladys Granger R.N.) 0513 (Given - Provider: Jade Rodriguez R.N.)1458 (Not Given - Provider: Annika Coe R.N. - Reason: Patient/family refused) metroNIDAZOLE in NaCl (iso osm) IVPB 500 mg (FlagyL) (CANCELED) 500 mg, intravenous, at 200 mL/hr, Administer over 30 Minutes, Every 8 hours, First dose on Wed10/06/24 at 0424, Drug Monitoring Program: Pharmacist to adjust medication dosing based on indication and drug clearance factors., Indications: Intra-abdominal infection, community acquired 0506 (New Bag - Provider: Jade Rodriguez R.N.)1221 (New Bag - Provider: Myah Jay)2017 (New Bag - Provider: Gladys Granger R.N.) 0405 (New Bag - Provider: Jade Rodriguez R.N.) sennosides tablet 17.2 mg (Senokot) 17.2 mg, oral, Daily, First dose on Wed10/06/24 at 0900, Do not give if patient has diarrhea 0945 (Not Given - Provider: Myah Jay - Reason: Patient/family refused) 1025 (Given - Provider: Annika Coe R.N.) 1019 (Not Given - Provider: Annika Coe R.N. - Reason: Patient/family refused - Comment: Patient Sleeping) sodium chloride (PF) 0.9 % injection 50 mL (COMPLETED) 50 mL, intravenous, Once, On Wed10/06/24 at 1545, For 1 dose 1525 (Given - Provider: Jorge Luis Leal, R.N.) Continuous Medication Order 10/06/2024 10/07/2024 10/08/2024 Lactated Ringer's (CANCELED) 75 mL/hr, intravenous, Continuous, Starting on Wed10/06/24 at 0424 0428 (Restarted - Provider: Jade Rodriguez R.N.)0548 (Stopped - Provider: Jade Rodriguez R.N.) Lactated Ringers Fixed Rate (CANCELED) 75 mL/hr, intravenous, Continuous, Starting on Wed10/06/24 at 0158 0207 (New Bag - Provider: Paola Hopson R.N.)0356 (Continue to Inpatient Floor - Provider: Paola Hopson R.N.)0428 (Stopped - Provider: Jade Rodriguez R.N. - Comment: NEW fluid orders)0548 (Restarted - Provider: Jade Rodriguez R.N.)0946 (New Bag - Provider: Myah Jay)1831 (Stopped - Provider: Gladys Granger R.N.)2158 (Rate/Dose Change - Provider: Gladys Granger R.N.) 0100 (Rate/Dose Verify - Provider: Jade Rodriguez R.N.)0515 (Stopped - Provider: Jade Rodriguez R.N.) PRN Medication Order 10/06/2024 10/07/2024 10/08/2024 bisacodyL suppository 10 mg (Dulcolax) 10 mg, rectal, Every 12 hours PRN, constipation, if no bowel movement in 48 hours, Starting on Wed10/06/24 at 0423 fentaNYL injection 25 mcg (Sublimaze) (CANCELED) 25 mcg, intravenous, Every 2 min PRN, sedation, Administer over 1 minute immediately prior to the procedure. May repeat every 2 minutes to a maximum of 200 mcg, until pain score of 3 or less, or until the patient meets the pain comfort goal, or RASS 0 to -2. Do not give if respiratory rate is less than 8 breaths/minute., Starting on Wed10/06/24 at 1524, For 3 hours, Intraprocedure (RAD) 1534 (Given - Provider: Driss LealS.NJay, R.N.)1538 (Given - Provider: Driss LealS.NJay, R.N.)1542 (Given - Provider: Patrice Leal., R.N.)1544 (Given - Provider: Patrice Leal., R.N.)1552 (Given - Provider: Jorge Luis Leal, R.N.) iohexoL 300 mg iodine/mL solution 150 mL (Omnipaque) (COMPLETED) 150 mL, intravenous, Once in imaging, contrast, Starting on Wed10/06/24 at 1525, For 1 dose 1525 (Given - Provider: Patrice Leal., R.N.) lidocaine 10 mg/mL (1 %) injection (Xylocaine) (COMPLETED) As needed, Starting on Wed10/06/24 at 1545, Intra-Op 1545 (Given - Provider: Candelario Del Rio M.D.) midazolam (PF) injection 0.5 mg (Versed) (CANCELED) 0.5 mg, intravenous, Every 2 min PRN, sedation, RASS -1, Starting on Wed10/06/24 at 1524, Intraprocedure (RAD), May repeat every 2 minutes for a maximum of 5 mg. Do not give if respiratory rate is less than 8 breaths/minute. 1534 (Given - Provider: Jorge Luis Leal, R.N.)1538 (Given - Provider: Jorge Luis Leal, R.N.) midazolam (PF) injection 1 mg (Versed) (CANCELED) 1 mg, intravenous, Every 2 min PRN, sedation, RASS 0, Starting on Wed10/06/24 at 1524, Intraprocedure (RAD), May repeat every 2 minutes for a maximum of 5 mg. Do not give if respiratory rate is less than 8 breaths/minute. 1536 (Given - Provider: Patrice Leal., R.N.)1540 (Given - Provider: Jorge Luis Leal, R.N.)1542 (Given - Provider: Jorge Luis Leal, R.N.)1548 (Given - Provider: Jorge Luis Leal, R.N.) ondansetron (PF) injection 4 mg (Zofran) 4 mg, intravenous, Every 6 hours PRN, nausea, vomiting, Starting on Wed10/06/24 at 042, Use ondansetron before droperidol. oxyCODONE IR tablet 10 mg (Roxicodone)(Linked Group 1) 10 mg, oral, Every 4 hours PRN, severe pain or score 7-10 of 10, for breakthrough pain, Starting on Wed10/06/24 at 0423, Pain unrelieved by other oral analgesics. oxyCODONE IR tablet 5 mg (Roxicodone)(Linked Group 1) 5 mg, oral, Every 4 hours PRN, moderate pain or score 4-6 of 10, for breakthrough pain, Starting on Wed10/06/24 at 042, Pain unrelieved by other oral analgesics. Linked Groups Order Group 1: oxyCODONE IR tablet 5 mg (Roxicodone)Jump to med 5 mg, oral, Every 4 hours PRN, moderate pain or score 4-6 of 10, for breakthrough pain, Starting on Wed10/06/24 at 0423, Pain unrelieved by other oral analgesics. Or oxyCODONE IR tablet 10 mg (Roxicodone)Jump to med 10 mg, oral, Every 4 hours PRN, severe pain or score 7-10 of 10, for breakthrough pain, Starting on Wed10/06/24 at 0423, Pain unrelieved by other oral analgesics. documented in this encounter Care Teams Research Rn Spec Relationship Specialty Start Date End Date None Reported, Pcp PCP - General Family Medicine 10/06/24 documented as of this encounter
--- OUTSIDE RECORDS SUMMARY | 2024-10-19 15:36 | XMS_ITS | Encounter Summary ---
Author Organization [facility] Address [address] [place] [address] Care Team Providers Care Hot Tar Roofer Helper Name Role Phone None Reported, Pcp Primary Care Provider Unavail able Encounter Details Date Type Department Care Team (Late st Contact Info) Description 10/06/2024 1:15 AM [facility] T[facility]IST Ancillary Procedure Department of Radiology in [place], [place] [address] [place] [phone] Letty Kevin, PJayAEnrique [address] [place] [phone] Social History Tobacco Use Types Packs/Day Years Used Date Smoking Tobacco: Never Dental Answer Date Recorded Dental: Regular Dentist Unknown 10/05/19 25 Sex and Gender Information Value Date Recorded Sex Assigned at Not on file Legal Sex Male 8:10 PM [facility] TYPIST Gender Identity Not on file Sexual Orientation Not on file documented as of this encounter Plan of Treatment Upcoming Encounters Date Type Department Care Team (Late st Contact Info) Description 11/17/2024 9:15 AM CDT Appointment Department of Radiology, [facility], in [place], [place] [address] [place] [phone] Schuyler Norman APRN, C.N.P., M.S.N. [address] [place] [phone] 11/17/2024 11:30 AM CDT Appointment Department of Radiology in [place], [place] [address] [place] [phone] Schuyler Norman APRN, C.NBoom., M.S.N. [address] [place] [phone] 11/17/2024 1:00 PM CDT Office Visit Division of Trauma Critical Care and General Surgery in [place], [place] [address] [place] [phone] Schuyler Norman APRN, C.N.P., M.S.N. [address] [place] [phone] documented as of this encounter Procedures Procedure Name Priority Date/Time Associated Diagnosis Comments INTERPRETATION OF OUTSIDE CT ABDOMEN AND OR PELVIS RAD - Semiurgent (Fast; most ED patients; some inpatients) 10/06/2024 5:26 AM STENO TYPIST documented in this encounter Results * Interpretation of Outside CT Abdomen and or Pelvis (10/06/2024 5:26 AM STENO TYPIST) Anatomical Region Laterality Modality Abdomen, Pelvis, Abdominal R ST LOS, Abdominal ARZ LOS, Abdominal FLA LOS, Other N/A Computed Tomography Impressions 10/06/2024 5:53 AM STENO TYPIST Acute perforated appendicitis with developing abscess. Narrative 10/06/2024 5:53 AM STENO TYPIST EXAM: INTERPRETATION OF OUTSIDE CT ABDOMEN AND [...] appendicitis with developing abscess. Letty Kevin P.A.-C. IMSuze CT PROCEDURES Final Result documented in this encounter Visit Diagnoses Not on filedocumented in this encounter Care Teams Hot Tar Roofer Helper Relationship Specialty Start Date End Date None Reported, Pcp PCP - General Family Medicine 10/06/24 documented as of this encounter
--- OUTSIDE RECORDS SUMMARY | 2024-10-19 15:36 | XMS_ITS | Encounter Summary ---
Author Organization [facility] Address [address] [place] [phone] Care Team Providers Care Telescope Operator Name Role Phone None Reported, Pcp Primary Care Provider Unavail able Reason for Referral * Outpatient (Routine) - Closed Specialty Diagnoses / Procedures Referred By Marybel t Referred To Contact Trauma Critical Care and General Surgery Diagnoses Acute Appendicitis With Perforation Localized Peritonitis And Gangrene With Abscess Joseluis Daily P.A.-C. [address] [place] [phone] Phone: tel: fax: [facility] Referral ID Status Reason Start Date Expiration Date Visits Re quested Visits Authorized [id number] Closed 10/09/2024 04/10/2026 1 1 ER TECHNICAL PUBLICATIONS * Outpatient (Routine) - Closed Specialty Diagnoses / Procedures Referred By Contac t Referred To Contact Radiology Diagnoses Acute Appendicitis With Perforation Localized Peritonitis And Gangrene With Abscess Procedures IR Abscess Drain Check Joseluis Daily P.A.-C. [address] [place] [phone] Phone: tel: fax: [facility] Referral ID Status Reason Start Date Expiration Date Visits Re quested Visits Authorized [id number] Closed 10/09/2024 01/09/2026 1 1 ER TECHNICAL PUBLICATIONS * MRI/CAT/PET Scan (Routine) - Closed Specialty Diagnoses / Procedures Referred By Marybel stewart Referred To Contact Radiology Diagnoses Acute Appendicitis With Perforation Localized Peritonitis And Gangrene With Abscess Procedures CT Abdomen Pelvis with IV Contrast Joseluis Daily P.A.-C. [address] [place] [phone] Phone: tel: fax: [facility] Referral ID Status Reason Start Date Expiration Date Visits Re quested Visits Authorized [id number] Closed 10/09/2024 01/09/2026 1 1 ER TECHNICAL PUBLICATIONS Reason for Visit * Reason Onset Date Comments Pre-visit Testing Orders 10/09/2024 Encounter Details Date Type Department Care Team (Latest Contact Info) Description 10/09/2024 Clinical Communication [facility] [address] [place] [phone] Joseluis Daily P.A.-C. [address] [place] [phone] Pre-visit Testing Orders Social History Tobacco Use Types Packs/Day Years Used Date Smoking Tobacco: Never [facility] [employer] Answer Date Recorded In the past 12 months has [facility] [employer], gas, oil, or water flo.do threatened to shut off services in your [...] your living situation today? 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 [address] [place] [phone] 11/17/2024 11:30 AM CDT Appointment Department of Radiology in [address] [phone] Schuyler Norman APRN, C.N.P., M.S.N. [address] [place] [phone] 11/17/2024 1:00 PM CDT Office Visit Division of Trauma Critical Care and General Surgery in [address] [phone] Schuyler Norman APRN C.N.P., M.S.N. [address] [place] [phone] Scheduled Referrals Name Type Priority Associated Diagnoses Orde r Schedule Trauma Critical Care and General Surgery office visit (clinic) Outpatient Referral Routine Acute Appendicitis With Perforation Localized Peritonitis And Gangrene With Abscess Expected: 10/12/2024, Expires: 01/06/2026 documented as of this encounter Results * IR Abscess Drain Check (10/12/2024 12:34 PM WRITER TECHNICAL PUBLICATIONS) Anatomical Region Laterality Modality Body, Vascular Interventiona l RST LOS, Vascular Interventional ARZ LOS, Vascular Interventional FLA LOS N/A X-Ray Angiography Impressions 10/12/2024 4:08 PM WRITER TECHNICAL PUBLICATIONS Diagnostic sinogram of the right lower quadrant drain demonstrates good position and function of the 10 Cambodian periappendiceal abscess drain. Continue flushing with 3 cc sterile saline twice daily and follow-up at the discretion of the surgical team. NR Narrative 10/12/2024 4:08 PM WRITER TECHNICAL PUBLICATIONS EXAM: IR ABSCESS DRAIN CHECK CLINICAL HISTORY: [...] approximately 10 cc a day. TECHNIQUE: Fluoroscopic bank operations officer image demonstrates a right lower quadrant drain [...] approximately 10 cc a day. TECHNIQUE: Fluoroscopic bank operations officer image demonstrates a right lower quadrantdrain with [...] demonstrates goodposition and function of the 10 [place]ian periappendiceal abscess drain.Continue flushing with 3 cc sterile saline twice daily and follow-up atthe discretion of the surgical team. NR us Joseluis Daily P.A.-C. IMG IR PROCEDURES Final Res ult * CT Abdomen Pelvis with IV Contrast (10/12/2024 10:10 AM WRITER TECHNICAL PUBLICATIONS) Anatomical Region Laterality Modality Abdomen, Pelvis, Abdominal R ST LOS, Abdominal ARZ LOS, Abdominal FLA LOS N/A Computed Tomograp hy, Computed Tomography 10/12/2024 10:1 4 AM WRITER TECHNICAL PUBLICATIONS Impressions 10/12/2024 11:36 AM WRITER TECHNICAL PUBLICATIONS Interval placement of a percutaneous pigtail catheter into a periappendiceal abscess, which has substantially decreased in size. However, administered enteric contrast does readily fill the periappendiceal abscess cavity. No new discrete, drainable fluid collection. Narrative 10/12/2024 11:36 AM WRITER TECHNICAL PUBLICATIONS EXAM: CT ABDOMEN PELVIS WITH IV CONTRAST [...] the cephalad aspect of the pigtail catheter (-500). No new discrete, drainable fluid collection. The [...] (ABNORMAL) CBC without Differential (10/12/2024 8:57 AM WRITER TECHNICAL PUBLICATIONS) Hemoglobin 13.8 13.2 - 16.6 g/dL 10/12/2024 9:30 AM WRITER TECHNICAL PUBLICATIONS DTL Hematocrit 41.9 38.3 - 48.6 % 10/12/2024 9:30 AM WRITER TECHNICAL PUBLICATIONS DTL Erythrocytes 4.57 4.35 - 5.65 x10(12)/L 10/12/2024 9:30 AM WRITER TECHNICAL PUBLICATIONS DTL MCV 91.7 78.2 - 97.9 fL 10/12/2024 9:30 AM WRITER TECHNICAL PUBLICATIONS DTL RBC Distrib Width 13.1 11.8 - 14.5 % 10/12/2024 9:30 AM WRITER TECHNICAL PUBLICATIONS DTL Platelet Count 350(H) 135 - 317 x10(9)/L 10/12/2024 9:30 AM WRITER TECHNICAL PUBLICATIONS DTL Leukocytes 9.4 3.4 - 9.6 x10(9)/L 10/12/2024 9:30 AM WRITER TECHNICAL PUBLICATIONS DTL Blood (Blood, Venous) 10/12/2024 8:57 AM WRITER TECHNICAL PUBLICATIONS 10/12/2024 9:10 AM WRITER TECHNICAL PUBLICATIONS Joseluis Daily P.A.-C. LAB BLOOD ADD-ON Final Resu lt [facility] [address] [place] [address], [facility] [address] [place] [address] documented in this encounter Visit Diagnoses Diagnosis Acute Appendicitis With Perforation Localized Peritonitis And Gangrene With Abscess- Primary Acute Appendicitis With Perforation Localized Peritonitis And Gangrene With Abscess Acute Appendicitis With Perforation Localized Peritonitis And Gangrene With Abscess documented in this encounter Care Teams Telescope Operator Relationship Specialty Start Date End Date None Reported, Pcp PCP - General Family Medicine 10/06/24 documented as of this encounter
[2024-10-19 15:59] LABS: Basophils Percent Auto 0.2 % (0.0-3.0); Eosinophils Percent Auto 0.2 % (0.0-7.0); Hematocrit 43.6 % (37.0-53.0); Hemoglobin* 14.3 gm/dL (13.5-17.5); Immature Granulocytes Pct Auto 0.1 %; Lymphocytes Percent Auto 2.3 % (20-44); Mean Corpuscular HGB Conc 33 gm/dL (32-36); Mean Corpuscular Hemoglobin 30 pg (26-34); Mean Corpuscular Volume 92 fL (80-100); Monocytes Percent Auto 3.5 % (0.0-11.0); Neutrophils Percent Auto 93.7 % (42.0-72.0); Platelet Count* 242 K/uL (140-440); RDW Coefficient of Variation % 14.2 % (11.5-15.5); Red Blood Count 4.74 m/uL (4.30-5.90); White Blood Count* 23.94 K/uL (4.50-11.00)
--- NOTE | 2024-10-19 16:13 | ED.GENADULT ---
HPI - General Adult General Chief complaint: Fever Stated complaint: lightheaded, fever Time Seen by Provider: 10/19/24 15:51 History of Present Illness HPI narrative: This 18-year-old male had a complicated appendicitis and appendectomy A couple weeks ago. He has a drain in place and is no longer taking antibiotic therapy. He states that the drain will come out in a week or 2. He comes in today because he was feeling more tired and went up to the bathroom to urinate this morning he became lightheaded. He states that he did sleep in any did not have any thing to eat or drink prior to this. He was able to sit down and these symptoms have resolved. He states that he feels back to normal. He did measure a temperature at 99.9? F and a similar temperature was obtained here. Related Data Home Medications ?Medication ?Instructions ?Recorded ?Confirmed No Known Home Medications 10/05/24 10/19/24 Allergies Allergy/AdvReac Type Severity Reaction Status Date / Time No Known Drug Allergies Allergy Verified 10/19/24 17:04 Review of Systems Status of ROS: Reports: 10 or more systems reviewed and unremarkable except as noted in History and below Narrative: Constitutional: No weight gain or loss. Eyes: No discharge. No vision changes. HENT: No congestion, no sore throat, no ear pain. Cardiovascular: No chest pain, no palpitations. Respiratory: No shortness of breath, no wheezes, no cough. Gastrointestinal: No abdominal pain, no vomiting, no diarrhea. Genitourinary: No dysuria, no hematuria. Musculoskeletal: Normal range of motion. Skin: No rashes, no pruritis. Neurological: No dizziness, weakness, sensory change, speech change. Endo/Heme/Allergies: No bruising or bleeding. No polydipsia. Pysch: no suicidality, no anxiety, no insomnia. All other systems reviewed and are negative. [facility] Social History Smoking Status: Never smoker Do you use any of these nicotine containing products: None How often do you have a drink containing alcohol: monthly or less How often do you have six or more drinks on one occasion: Never AUDIT-C Alcohol total score: 1 Non-prescribed substance use: denies use Exam Narrative: Exam Narrative: Constitutional: Well-developed, well-nourished, no acute distress. HEENT: Normocephalic, atraumatic. Neck: Normal range of motion. Nontender. Supple. Heart: Regular. No murmurs. Normal rate. Intact distal pulses. Lungs: Clear to auscultation. No chest discomfort. No wheezes, rhonchi, or rales. Abdomen: Normal bowel sounds. Nontender. No rebound tenderness. the drain is in place in the abdomen with no sign of erythema or discharge. Genitalia: Deferred. Back: No midline tenderness. Normal range of motion. Extremities: Normal range of motion. No injury. Skin: Intact. No rash. Warm. No erythema or pallor. Neurologic: No altered sensation. No weakness. Alert and oriented. Psychiatric: No suicidality. No anxiety or depression. No insomnia. Nursing notes and vitals signs are reviewed. Const: Vital Signs, click to edit/add: Vital Signs - 24 hr 10/19/24 15:39 10/19/24 16:21 10/19/24 16:30 Temperature 100.0 F H Pulse Rate 80 83 Pulse Rate [Pulse Oximeter] 80 Respiratory Rate 20 Blood Pressure Blood Pressure [Ri ght Upper Arm] 95/61 Pulse Oximetry 97 98 98 Oxygen Delivery Me thod Room Air 10/19/24 16:45 10/19/24 17:18 10/19/24 17:19 Temperature Pulse Rate 81 Pulse Rate [Pulse Oximeter] Respiratory Rate Blood Pressure 106/61 Blood Pressure [Ri ght Upper Arm] Pulse Oximetry 98 97 95 Oxygen Delivery Me thod 10/19/24 17:20 10/19/24 17:23 10/19/24 17:30 Temperature Pulse Rate 84 97 Pulse Rate [Pulse Oximeter] Respiratory Rate 18 Blood Pressure Blood Pressure [Ri ght Upper Arm] Pulse Oximetry 95 95 Oxygen Delivery Me thod 10/19/24 17:45 10/19/24 17:56 10/19/24 18:01 Temperature 101.8 F H Pulse Rate 84 92 Pulse Rate [Pulse Oximeter] Respiratory Rate Blood Pressure Blood Pressure [Ri ght Upper Arm] Pulse Oximetry 97 98 Oxygen Delivery Me thod Course Vital Signs Vital signs: Initial Vital Signs Temperature 100.0 F H 10/19/24 15:39 Temperature Source Temporal Artery Scan 10/19/24 15:39 Pulse Rate 80 10/19/24 15:39 Respiratory Rate 20 10/19/24 15:39 Blood Pressure 95/61 10/19/24 15:39 Blood Pressure Mean 72 10/19/24 15:39 Blood Pressure Position Sitting 10/19/24 15:39 Pulse Oximetry 97 10/19/24 15:39 Oxygen Delivery Method Room Air 10/19/24 15:39 Vital Signs Temperature 100.0 F H 10/19/24 15:39 Pulse Rate 80 10/19/24 15:39 Respiratory Rate 20 10/19/24 15:39 Blood Pressure 95/61 10/19/24 15:39 Pulse Oximetry 97 10/19/24 15:39 Oxygen Delivery Method Room Air 10/19/24 15:39 Temperature 101.8 F H 10/19/24 17:56 Pulse Rate 92 10/19/24 18:01 Respiratory Rate 18 10/19/24 17:23 Blood Pressure 106/61 10/19/24 17:19 Pulse Oximetry 98 10/19/24 18:01 Oxygen Delivery Method Room Air 10/19/24 15:39 Medications Administered Medications: Discontinued Medications Generic Name Dose Route Start Last Admin Trade Name Seth PRN Reason Stop Dose Admin Acetaminophen 1,000 mg 10/19/24 17:56 10/19/24 17:59 Acetaminophen 500 Mg Tablet PO 10/19/24 17:57 1,000 mg ONCE ONE Administration Medical Decision Making MDM Narrative Medical decision making narrative: This patient comes in with some generalized malaise and little bit of lightheadedness earlier today. He had an appendectomy and continues to have a drain in place that he states is still producing about 10 mL per day. His exam is completely normal as are vital signs. An IV was placed and labs are acquired showing a white count elevated significantly at 24,000. I did then order a CT scan of the abdomen and pelvis in this returns with no acute findings. His drain is in place and there is no sign of abscess or complication. he is not showing findings that warrant a workup for sepsis. The patient did develop a temperature of a 101.8? F. He received Tylenol and I did give a g of Rocephin intravenously. I did attempt to call his surgical team at the [facility] but they were gone for the day. He is okay to be discharged home. He did receive a prescription for Augmentin from the [employer] machine. I advised him to connect with his surgical team tomorrow or return if worsening. Lab Data Labs: Lab Results 10/19/24 10/19/24 10/19/24 Range/Units 15:52 16:24 Unknown WBC 23.94 H (4.50-11.00) K/uL RBC 4.74 (4.30-5.90) m/uL Hgb 14.3 (13.5-17.5) gm/dL Hct 43.6 (37.0-53.0) % MCV 92 (80-100) fL MCH 30 (26-34) pg MCHC 33 (32-36) gm/dL RDW Coeff of Erica 14.2 (11.5-15.5) % Plt Count 242 (140-440) K/uL Neut % (Auto) 93.7 H (42.0-72.0) % Lymph % (Auto) 2.3 L (20-44) % [place] % (Auto) 3.5 (0.0-11.0) % Eos % (Auto) 0.2 (0.0-7.0) % Baso % (Auto) 0.2 (0.0-3.0) % Neut # (Auto) 22.40 H (1.7-7.0) K/uL Lymph # (Auto) 0.60 L (0.90-2.90) K/uL [place] # (Auto) 0.80 (0.00-0.90) K/UL Eos # (Auto) 0.00 (0.00-0.50) K/uL Baso # (Auto) 0.00 (0.00-0.30) K/uL Abs Immat Gran (auto) 0.00 (0.00-0.30) K/uL Imm/Tot Granulo (auto) 0.1 % Diff Slide Review Acceptable Review (Acceptable) Sodium 135 (135-149) mmol/L Potassium 3.8 (3.6-5.1) mmol/L Chloride 101 (96-114) mmol/L Carbon Dioxide 25 (20-32) mmol/L Anion Gap 9 (7-15) mEq/L BUN 10 (5-24) mg/dL Creatinine 0.6 (0.6-1.2) mg/dL Estimated Creat Clear 203.28 Estimated GFR 143 ml/min Glucose 127 H (60-115) mg/dL Calcium 9.2 (8.7-10.8) mg/dL Procalcitonin 0.06 (<0.50) ng/mL SARS-CoV-2 (PCR) Negative SARS-CoV-2 (Negative) Influenza Type A (PCR) Negative PCR FLU A (Negative) Influenza Type B (PCR) Negative PCR FLU B (Negative) RSV (PCR) Negative PCR RSV (Negative) Discharge Plan Discharge Clinical Impression: Postsurgical fever Patient Disposition: Home, Self-Care Condition: Stable Additional Instructions: Take medication as prescribed. Follow up with surgical team tomorrow for ongoing management or return if worsening. Prescriptions: No Action No Known Home Medications Follow Up/Referrals: Provider,Not a Local [Primary Care Provider] - Stand Alone Forms: [email or web address] Info Instructions
[2024-10-19 16:19] LABS: Slide Review Reflex Yes
[2024-10-19 16:24] LABS: Slide Review Acceptable Review (Acceptable)
--- NOTE | 2024-10-19 16:25 | CRLHL7_ITS ---
For Patients: As a result of the Century Cures Act, medical imaging exams and procedure reports are released immediately into your electronic medical record. You may view this report before your referring provider. If you have questions, please contact your health care provider. INDICATION: Recent appendectomy 10/06/2024, drain in place for abscess, now with fever and leukocytosis TECHNIQUE: CT abdomen and pelvis acquired with 78 cc Isovue 370 IV contrast. COMPARISON: CT abdomen pelvis 10/25/2024 FINDINGS: Lower chest: Unremarkable. Liver: Mild hepatomegaly measuring 22 cm in craniocaudal dimension, unchanged. No suspicious masses. Gallbladder and bile ducts: Unremarkable. No stones or inflammation. No biliary dilatation. Pancreas: Unremarkable. No mass or inflammation. Spleen: Mild splenomegaly measuring 15 cm in craniocaudal dimension, unchanged. Normal in size. No masses. Adrenal glands: Unremarkable. No nodules. Kidneys: Unremarkable. No suspicious masses, stones, or hydronephrosis. GI tract: Postsurgical changes of recent appendectomy. An air-filled tubular structure in the right lower quadrant adjacent to the cecum may represent residual appendix (2/104) or collapsed ileum. Right lateral approach abdominal drain with pigtail in the right paracolic gutter. There is small amount of surrounding free fluid. No rim enhancing fluid collection is appreciated. Persistent suspected appendicolith measuring 1.6 cm. Resolved left enteroenteric intussusception with new right mid abdomen enteroenteric intussusception, also likely transient. Large amount of stool throughout the colon. Vasculature: Abdominal aorta is normal in caliber. Mesenteric arteries are patent. Lymph nodes: No lymphadenopathy. Peritoneum/Abdominal Wall: Unremarkable. No sign of mass or infiltration. No free air or significant free fluid. Pelvis: Unremarkable. Bones: Unremarkable for age. IMPRESSION: Postsurgical changes of recent appendectomy with a drainage catheter in place and mild surrounding free fluid. No evidence of drainable abscess. Persistent appendicolith Large amount of stool throughout the colon Mild hepatosplenomegaly, unchanged from prior. Please note that all CT scans at this facility use dose modulation, iterative reconstruction, and/or weight-based dosing when appropriate to reduce radiation dose to as low as reasonably achievable. Dictated by Danna Chen MD @ 10/19/2024 5:50:08 PM (Electronically Signed)
[2024-10-19 16:30] LABS: PCR FLU A Negative PCR FLU A (Negative); PCR FLU B Negative PCR FLU B (Negative); PCR RSV Negative PCR RSV (Negative); SARS PCR* Negative SARS-CoV-2 (Negative)
[2024-10-19 16:33] LABS: Chloride* 101 mmol/L (96-114); Potassium* 3.8 mmol/L (3.6-5.1); Sodium* 135 mmol/L (135-149)
[2024-10-19 16:35] LABS: Creatinine* 0.6 mg/dL (0.6-1.2); Est. Creatinine Clearance* 203.28; Estimated Glomerular Filt Rate 143 ml/min
[2024-10-19 16:36] LABS: Anion Gap 9 mEq/L (7-15); Blood Urea Nitrogen* 10 mg/dL (5-24); Calcium* 9.2 mg/dL (8.7-10.8); Carbon Dioxide* 25 mmol/L (20-32); Glucose* 127 mg/dL (60-115)
--- OUTSIDE RECORDS SUMMARY | 2024-10-19 16:44 | XMS_ITS | Encounter Summary ---
Author Organization [facility] Address [address] [place] [id number] Care Team Providers Care Oil Gas And Pipe Tester Name Role Phone None Reported, Pcp Primary Care Provider Unavail able Encounter Details Date Type Department Care Team (Late st Contact Info) Description 10/06/2024 4:35 AM TELEVISION NEWS REPORTER Ancillary Procedure Department of General Surgery Social History Tobacco Use Types Packs/Day Years Used Date Smoking Tobacco: Never Dental Answer Date Recorded Dental: Regular Dentist Unknown 10/05/19 25 Sex and Gender Information Value Date Recorded Sex Assigned at Not on file Legal Sex Male 8:10 PM TELEVISION NEWS REPORTER Gender Identity Not on file Sexual Orientation Not on file documented as of this encounter Plan of Treatment Upcoming Encounters Date Type Department Care Team (Late st Contact Info) Description 11/17/2024 9:15 AM CDT Appointment Department of Radiology, [facility], in [place], [place] [address] [place] [phone] Schuyler Norman APRN, C.N.P., M.S.N. [address] [place] [phone] 11/17/2024 11:30 AM CDT Appointment Department of Radiology in [place], [place] [address] [place] [phone] Schuyler Norman APRN, C.N.P., M.S.N. [address] [place] [phone] 11/17/2024 1:00 PM CDT Office Visit Division of Trauma Critical Care and General Surgery in [place], [place] [address] [place] [phone] Schuyler Norman APRN, C.N.P., M.S.N. [address] [place] [phone] documented as of this encounter Procedures Procedure Name Priority Date/Time Associated Diagnosis Comments SURGERY IMAGE EXAM Routine 10/06/2024 4: 35 AM TELEVISION NEWS REPORTER documented in this encounter Results * Unspecified-Surgery Image Exam (10/06/2024 4:35 AM TELEVISION NEWS REPORTER) 10/06/2024 4:34 AM TELEVISION NEWS REPORTER Narrative [facility] - 10/06/2024 4:37 AM TELEVISION NEWS REPORTER This order has been created and auto-finalized to support the import of images acquired without order. The clinical documentation to support these images can be found on the encounter that produced images. us Provider Not In System IMG NON RAD IMAGING PROCE DURES Final Result [facility] NA documented in this encounter Visit Diagnoses Not on filedocumented in this encounter Care Teams Oil Gas And Pipe Tester Relationship Specialty Start Date End Date None Reported, Pcp PCP - General Family Medicine 10/06/24 documented as of this encounter
--- OUTSIDE RECORDS SUMMARY | 2024-10-19 16:44 | XMS_ITS | Encounter Summary ---
Author Organization [facility] Address [address] [place] [address] Care Team Providers Care Pen And Pencil Repairer Name Role Phone None Reported, Pcp Primary Care Provider Unavail able Reason for Visit * Reason Comments Return Visit * Outpatient (Routine) - Closed Specialty Diagnoses / Procedures Referred By Contkelsea t Referred To Contact Trauma Critical Care and General Surgery Diagnoses Acute Appendicitis With Perforation Localized Peritonitis And Gangrene With Abscess Joseluis Daily, PJayAJay-Elfego [address] [place] [phone] Phone: tel: fax: [facility] Referral ID Status Reason Start Date Expiration Date Visits Re quested Visits Authorized [id number] Closed 10/09/2024 04/10/2026 1 1 Encounter Details Date Type Department Care Team (Late st Contact Info) Description 10/12/2024 2:15 PM NATIONAL SALES EXECUTIVE Office Visit Division of Trauma Critical Care and General Surgery in [place], [place] [address] [place] [phone] Joseluis Daily PJayAJay-CJay [address] [place] [phone] Schuyler Norman APRN, C.N.P., M.S.N. [address] [place] [phone] Candido Simpson M.D. [address] [place] [phone] Acute Appendicitis With Perforation Localized Peritonitis And Gangrene With Abscess Social History Tobacco Use Types Packs/Day Years Used Date Smoking Tobacco: Never Smokeless Tobacco: Never [facility] Utilities Answer Date Recorded In the [...] living situation today? I have a [facility] place to live 10/08/2024 Sex and Gender Information Value Date Recorded Sex Assigned at Not on file Legal Sex Male 8:10 PM NATIONAL SALES EXECUTIVE Gender Identity Not on file Sexual Orientation Not on file documented as of this encounter Progress Notes * Schuyler Norman APRN, C.N.P., M.S.N. - 10/12/2024 2:15 PM CST SUBJECTIVE CHIEF COMPLAINT / REASON FOR VISIT Johnny Vann is a 18 y.o. male who presents for visit after sinogram and CT for perforated appendicitis. HISTORY OF PRESENT ILLNESS Mr. Vann initially presented to the [facility] with abdominal pain. History of 2-3 weeks of feeling ill initially thought to be food poisoning. Imaging they are notable for perforated appendicitis. He was transferred to [facility] for further evaluation.General surgery was consulted [...] and reviewing imaging with family and patient. ONAL SALES EXECUTIVE documented in this encounter Plan of Treatment Upcoming Encounters Date Type Department Care Team (Late st Contact Info) Description 11/17/2024 9:15 AM CDT Appointment Department of Radiology, [facility], in [place], [place] [address] [place] [phone] Schuyler Norman APRN, C.N.Rich., M.S.N. [address] [place] [phone] 11/17/2024 11:30 AM CDT Appointment Department of Radiology in [place], [place] [address] [place] [phone] Schuyler Norman APRN, Yennifer.N.P., M.S.N. [address] [place] [phone] 11/17/2024 1:00 PM CDT Office Visit Division of Trauma Critical Care and General Surgery in [address] [phone] Schuyler Norman APRN C.N.P., M.S.N. [address] [place] [phone] documented as of this encounter Visit Diagnoses Diagnosis Acute Appendicitis With Perforation Localized Peritonitis And Gangrene With Abscess documented in this encounter Care Teams Pen And Pencil Repairer Relationship Specialty Start Date End Date None Reported, Pcp PCP - General Family Medicine 10/06/24 documented as of this encounter
--- OUTSIDE RECORDS SUMMARY | 2024-10-19 16:44 | XMS_ITS | Encounter Summary ---
Author Organization [facility] Address [address] [place] [address] Care Team Providers Care Education Rn Name Role Phone None Reported, Pcp Primary Care Provider Unavail able Encounter Details Date Type Department Care Team (Latest Contact Info) Description 10/05/2024 Intake [facility] Social History Tobacco Use Types Packs/Day Years Used Date Smoking Tobacco: Never Assessed [facility] Utilities Answer Date Recorded In the past 12 months has [employer], gas, oil, or water [employer] threatened to shut off services in your [...] your living situation today? I have a [facility] place to live 10/08/2024 Sex and Gender Information Value Date Recorded Sex Assigned at Not on file Legal Sex Male 8:10 PM SHOE LACER Gender Identity Not on file Sexual Orientation Not on file documented as of this encounter Functional Status * Intimate Partner Violence Question Answer Date of Assessment Author Within the last year, have y ou been humiliated or emotionally abused in other ways by your partner or ex-partner? No 10/08/2024 7:00 PM SHOE LACER Jade Haq, R.N. Within the last year, have y ou been afraid of your partner or ex-partner? No 10/08/2024 7:00 PM SHOE LACER Riaz Haq R.N. Within the last year, have y ou been raped or forced to have any kind of sexual activity by your partner or ex-partner? No 10/08/2024 7:00 PM SHOE LACER Jade Quinn, R.N. Within the last year, have y ou been kicked, hit, slapped, or otherwise physically hurt by your partner or ex-partner? No 10/08/2024 7:00 PM SHOE LACER Jade Quinn, R.N. documented as of this encounter Plan of Treatment Upcoming Encounters Date Type Department Care Team (Late st Contact Info) Description 11/17/2024 9:15 AM CDT Appointment Department of Radiology, [facility], in [place], [place] [address] [place] [phone] Schuyler Norman APRN, C.N.P., M.S.N. [address] [place] [phone] 11/17/2024 11:30 AM CDT Appointment Department of Radiology in [address] [phone] Schuyler Norman APRN, Yennifer.N.P., M.S.N. [address] [place] [phone] 11/17/2024 1:00 PM CDT Office Visit Division of Trauma Critical Care and General Surgery in [address] [phone] Schuyler Norman APRN, C.NBoom., M.S.N. [address] [place] [phone] documented as of this encounter Visit Diagnoses Not on filedocumented in this encounter Care Teams Education Rn Relationship Specialty Start Date End Date None Reported, Pcp PCP - General Family Medicine 10/06/24 documented as of this encounter
--- OUTSIDE RECORDS SUMMARY | 2024-10-19 16:44 | XMS_ITS | Encounter Summary ---
Author Organization [facility] Address [address] [place] [address] Care Team Providers Care Patient Clerical Assistant Name Role Phone None Reported, Pcp Primary Care Provider Unavail able Encounter Details Date Type Department Care Team (Late st Contact Info) Description 10/06/2024 1:15 AM FIBRE OPTICS JOINTER Ancillary Procedure Department of Radiology in [place], [place] [address] [place] [phone] Letty Kevin, PJayAEnrique [address] [place] [phone] Social History Tobacco Use Types Packs/Day Years Used Date Smoking Tobacco: Never Dental Answer Date Recorded Dental: Regular Dentist Unknown 10/05/19 25 Sex and Gender Information Value Date Recorded Sex Assigned at Not on file Legal Sex Male 8:10 PM FIBRE OPTICS JOINTER Gender Identity Not on file Sexual Orientation Not on file documented as of this encounter Plan of Treatment Upcoming Encounters Date Type Department Care Team (Late st Contact Info) Description 11/17/2024 9:15 AM CDT Appointment Department of Radiology, [facility], in [place], [place] [address] [place] [phone] Schuyler Norman APRN, C.N.P., M.S.N. [address] [place] [phone] 11/17/2024 11:30 AM CDT Appointment Department of Radiology in [place], [place] [address] [place] [phone] Schuyler Norman APRN, C.NBoom., M.S.N. [address] [place] [phone] 11/17/2024 1:00 PM CDT Office Visit Division of Trauma Critical Care and General Surgery in [place], [place] [address] [place] [phone] Schuyler Norman APRN, C.N.P., M.S.N. [address] [place] [phone] documented as of this encounter Procedures Procedure Name Priority Date/Time Associated Diagnosis Comments INTERPRETATION OF OUTSIDE CT ABDOMEN AND OR PELVIS RAD - Semiurgent (Fast; most ED patients; some inpatients) 10/06/2024 5:26 AM FIBRE OPTICS JOINTER documented in this encounter Results * Interpretation of Outside CT Abdomen and or Pelvis (10/06/2024 5:26 AM FIBRE OPTICS JOINTER) Anatomical Region Laterality Modality Abdomen, Pelvis, Abdominal R ST LOS, Abdominal ARZ LOS, Abdominal FLA LOS, Other N/A Computed Tomography Impressions 10/06/2024 5:53 AM FIBRE OPTICS JOINTER Acute perforated appendicitis with developing abscess. Narrative 10/06/2024 5:53 AM FIBRE OPTICS JOINTER EXAM: INTERPRETATION OF OUTSIDE CT ABDOMEN AND [...] on filedocumented in this encounter Care Teams Patient Clerical Assistant Relationship Specialty Start Date End Date None Reported, Pcp PCP - General Family Medicine 10/06/24 documented as of this encounter
--- OUTSIDE RECORDS SUMMARY | 2024-10-19 16:44 | XMS_ITS | Encounter Summary ---
Author Organization [facility] Address [address] [place] [address] Care Team Providers Care Information Technology Security Analyst Name Role Phone None Reported, Pcp Primary Care Provider Unavail able Encounter Details Date Type Department Care Team (Late st Contact Info) Description 10/09/2024 Clinical Communication [facility] [address] [place] [phone] Roya Clifton M [address] [place] [phone] Social History Tobacco Use Types Packs/Day Years Used Date Smoking Tobacco: Never [facility] [employer] Answer Date Recorded In the past 12 months has [facility] electric, gas, oil, or water company threatened [...] living situation today? I have a [facility] place to live 10/08/2024 Sex and Gender Information Value Date Recorded Sex Assigned at Not on file Legal Sex Male 8:10 PM UPPER STITCHER Gender Identity Not on file Sexual Orientation Not on file documented as of this encounter Plan of Treatment Upcoming Encounters Date Type Department Care Team (Late st Contact Info) Description 11/17/2024 9:15 AM CDT Appointment Department of Radiology, [facility], in [place], [place] [address] [place] [phone] Schuyler Norman APRN, C.N.P., M.S.N. [address] [place] [phone] 11/17/2024 11:30 AM CDT Appointment Department of Radiology in [address] [phone] Schuyler Norman APRN, C.N.P., M.S.N. [address] [place] [phone] 11/17/2024 1:00 PM CDT Office Visit Division of Trauma Critical Care and General Surgery in [address] [phone] Schuyler Norman APRN, C.N.P., M.S.N. [address] [place] [phone] documented as of this encounter Visit Diagnoses Not on filedocumented in this encounter Care Teams Information Technology Security Analyst Relationship Specialty Start Date End Date None Reported, Pcp PCP - General Family Medicine 10/06/24 documented as of this encounter
--- OUTSIDE RECORDS SUMMARY | 2024-10-19 16:44 | XMS_ITS | Encounter Summary ---
Author Organization [facility] Address [address] [place] [phone] Care Team Providers Care Electric Milkers Installer Name Role Phone None Reported, Pcp Primary Care Provider Unavail able Reason for Referral * Outpatient (Routine) - Authorized Specialty Diagnoses / Procedures Referred By Contac t Referred To Contact Trauma Critical Care and General Surgery Schuyler Norman APRN, C.N.Adelita, M.S.N. [address] [place] [phone] Phone: tel: fax: [facility] Referral ID Status Reason Start Date Expiration Date V isits Requested Visits Authorized [id number] Authorized 10/12/2024 04/13/2026 1 1 Scheduling Instructions HSS-[id number] OLOGIC ELECTRONIC SPECIALIST * MRI/CAT/PET Scan (Routine) - Authorized Specialty Diagnoses / Procedures Referred By Contac t Referred To Contact Radiology Diagnoses Acute Appendicitis With Perforation Localized Peritonitis And Gangrene With Abscess Procedures CT Abdomen Pelvis with IV Contrast Schuyler Norman APRN, C.N.P., M.S.N. [address] [place] [phone] Phone: tel: fax: [facility] Referral ID Status Reason Start Date Expiration Date V isits Requested Visits Authorized [id number] Authorized 10/12/2024 01/12/2026 1 1 OLOGIC ELECTRONIC SPECIALIST * Outpatient (Routine) - Authorized Specialty Diagnoses / Procedures Referred By Marybel stewart Referred To Contact Radiology Diagnoses Acute Appendicitis With Perforation Localized Peritonitis And Gangrene With Abscess Procedures IR Abscess Drain Check Schuyler Norman APRN, C.N.P., M.S.N. [address] [place] [phone] Phone: tel: fax: [facility] Referral ID Status Reason Start Date Expiration Date V isits Requested Visits Authorized [id number] Authorized 10/12/2024 01/12/2026 1 1 OLOGIC ELECTRONIC SPECIALIST Encounter Details Date Type Department Care Team (Late st Contact Info) Description 10/12/2024 Orders Only Division of Trauma Critical Care and General Surgery in [place], [place] [address] [place] [phone] Schuyler Norman APRN, C.NJosé Luis, M.S.N. [address] [place] [phone] Acute Appendicitis With Perforation Localized Peritonitis And Gangrene With Abscess (Primary Dx) Social History Tobacco Use Types Packs/Day Years Used Date Smoking Tobacco: Never Smokeless Tobacco: Never [facility] Utilities Answer Date Recorded In the past 12 months has [facility] [employer] gas, oil, or water [employer] threatened to shut off services in your [...] your living situation today? I have a [facility] place to live 10/08/2024 Sex and Gender Information Value Date Recorded Sex Assigned at Not on file Legal Sex Male 8:10 PM RADIOLOGIC ELECTRONIC SPECIALIST Gender Identity Not on file Sexual Orientation Not on file documented as of this encounter Plan of Treatment Upcoming Encounters Date Type Department Care Team (Late st Contact Info) Description 11/17/2024 9:15 AM CDT Appointment Department of Radiology, [facility], in [place], [place] [address] [place] [phone] Schuyler Norman APRN, C.N.P., M.S.N. [address] [place] [phone] 11/17/2024 11:30 AM CDT Appointment Department of Radiology in [place], [place] [address] [place] [phone] Schuyler Norman APRN, C.N.P., M.S.N. [address] [place] [phone] 11/17/2024 1:00 PM CDT Office Visit Division of Trauma Critical Care and General Surgery in [place], [place] [address] [place] [phone] Schuyler Norman APRN, C.N.P., M.S.N. [address] [place] [phone] Scheduled Orders Name Type Priority Associated Diagnoses [...] Primary documented in this encounter Care Teams Electric Milkers Installer Relationship Specialty Start Date End Date None Reported, Pcp PCP - General Family Medicine 10/06/24 documented as of this encounter
--- OUTSIDE RECORDS SUMMARY | 2024-10-19 16:44 | XMS_ITS | Encounter Summary ---
Author Organization [facility] Address [address] [place] [address] Care Team Providers Care Master Automotive Technician Name Role Phone None Reported, Pcp Primary Care Provider Unavail able Encounter Details Date Type Department Care Team (Late st Contact Info) Description 10/19/2024 Documentation Division of Trauma Critical Care and General Surgery in [place], [place] [address] [place] [phone] Gilma Flores, ElfegoNJayP., R.N. [address] [place] [phone] Social History Tobacco Use Types Packs/Day Years Used Date Smoking Tobacco: Never Smokeless Tobacco: Never [facility] Utilities Answer Date Recorded In the past 12 months has [facility] electric, gas, oil, or water [employer] threatened to shut off services in your [...] your living situation today? I have a [facility] place to live 10/08/2024 Sex and Gender Information Value Date Recorded Sex Assigned at Not on file Legal Sex Male 8:10 PM CLIMATE CHANGE ANALYST Gender Identity Not on file Sexual Orientation [...] continues flushes as instructed. He is attending [facility] well enough to be there. Inquires on [...] All questions answered to their apparent satisfaction. ATE CHANGE ANALYST documented in this encounter Plan of Treatment Upcoming Encounters Date Type Department Care Team (Late st Contact Info) Description 11/17/2024 9:15 AM CDT Appointment Department of Radiology, [facility], in [place], [place] [address] [place] [phone] Schuyler Norman APRN, Yennifer.N.P., M.S.N. [address] [place] [phone] 11/17/2024 11:30 AM CDT Appointment Department of Radiology in [address] [phone] Schuyler Norman APRN, C.N.P., M.S.N. [address] [place] [phone] 11/17/2024 1:00 PM CDT Office Visit Division of Trauma Critical Care and General Surgery in [address] [phone] Schuyler Norman APRN, C.N.P., M.S.N. [address] [place] [phone] documented as of this encounter Visit Diagnoses Not on filedocumented in this encounter Care Teams Master Automotive Technician Relationship Specialty Start Date End Date None Reported, Pcp PCP - General Family Medicine 10/06/24 documented as of this encounter
--- OUTSIDE RECORDS SUMMARY | 2024-10-19 16:44 | XMS_ITS | Encounter Summary ---
Author Organization [facility] Address [address] [place] [id number] Care Team Providers Care Fumigator And Sterilizer Name Role Phone None Reported, Pcp Primary Care Provider Unavail able Reason for Referral * Outpatient (Routine) - Closed Specialty Diagnoses / Procedures Referred By Marybel t Referred To Contact Trauma Critical Care and General Surgery Diagnoses Acute Appendicitis With Perforation Localized Peritonitis And Gangrene With Abscess Joseluis Daily P.A.-C. [address] [place] [phone] Phone: tel: fax: [facility] Referral ID Status Reason Start Date Expiration Date Visits Re quested Visits Authorized [id number] Closed 10/09/2024 04/10/2026 1 1 ECTOR FILTER TIP * Outpatient (Routine) - Closed Specialty Diagnoses / Procedures Referred By Contac t Referred To Contact Radiology Diagnoses Acute Appendicitis With Perforation Localized Peritonitis And Gangrene With Abscess Procedures IR Abscess Drain Check Joseluis Daily P.A.-C. [address] [place] [phone] Phone: tel: fax: [facility] Referral ID Status Reason Start Date Expiration Date Visits Re quested Visits Authorized [id number] Closed 10/09/2024 01/09/2026 1 1 ECTOR FILTER TIP * MRI/CAT/PET Scan (Routine) - Closed Specialty Diagnoses / Procedures Referred By Marybel stewart Referred To Contact Radiology Diagnoses Acute Appendicitis With Perforation Localized Peritonitis And Gangrene With Abscess Procedures CT Abdomen Pelvis with IV Contrast Joseluis Daily P.A.-C. [address] [place] [phone] Phone: tel: fax: [facility] Referral ID Status Reason Start Date Expiration Date Visits Re quested Visits Authorized [id number] Closed 10/09/2024 01/09/2026 1 1 ECTOR FILTER TIP Reason for Visit * Reason Onset Date Comments Pre-visit Testing Orders 10/09/2024 Encounter Details Date Type Department Care Team (Latest Contact Info) Description 10/09/2024 Clinical Communication [facility] [address] [place] [phone] Joseluis Daily P.A.-C. [address] [place] [phone] Pre-visit Testing Orders Social History Tobacco Use Types Packs/Day Years Used Date Smoking Tobacco: Never [facility] [employer]ities Answer Date Recorded In the past 12 months has [facility] [employer], gas, oil, or water Anki threatened to shut off services in your [...] your living situation today? I have a [facility] place to live 10/08/2024 Sex and Gender Information Value Date Recorded Sex Assigned at Not on file Legal Sex Male 8:10 PM INSPECTOR FILTER TIP Gender Identity Not on file Sexual Orientation Not on file documented as of this encounter Plan of Treatment Upcoming Encounters Date Type Department Care Team (Late st Contact Info) Description 11/17/2024 9:15 AM CDT Appointment Department of Radiology, [facility], in [place], [place] [address] [place] [phone] Schuyler Norman APRN, C.N.P., M.S.N. [address] [place] [phone] 11/17/2024 11:30 AM CDT Appointment Department of Radiology in [address] [phone] Schuyler Norman APRN, C.N.P., M.S.N. [address] [place] [phone] 11/17/2024 1:00 PM CDT Office Visit Division of Trauma Critical Care and General Surgery in [address] [phone] Schuyler Norman APRN C.N.P., M.S.N. [address] [place] [phone] Scheduled Referrals Name Type Priority Associated Diagnoses Orde r Schedule Trauma Critical Care and General Surgery office visit (clinic) Outpatient Referral Routine Acute Appendicitis With Perforation Localized Peritonitis And Gangrene With Abscess Expected: 10/12/2024, Expires: 01/06/2026 documented as of this encounter Results * IR Abscess Drain Check (10/12/2024 12:34 PM INSPECTOR FILTER TIP) Anatomical Region Laterality Modality Body, Vascular Interventiona l RST LOS, Vascular Interventional ARZ LOS, Vascular Interventional FLA LOS N/A X-Ray Angiography Impressions 10/12/2024 4:08 PM INSPECTOR FILTER TIP Diagnostic sinogram of the right lower quadrant drain demonstrates good position and function of the 10 [place] periappendiceal abscess drain. Continue flushing with 3 cc sterile saline twice daily and follow-up at the discretion of the surgical team. NR Narrative 10/12/2024 4:08 PM INSPECTOR FILTER TIP EXAM: IR ABSCESS DRAIN CHECK CLINICAL HISTORY: [...] approximately 10 cc a day. TECHNIQUE: Fluoroscopic employee health nurse image demonstrates a right lower quadrant drain [...] approximately 10 cc a day. TECHNIQUE: Fluoroscopic employee health nurse image demonstrates a right lower quadrantdrain with [...] demonstrates goodposition and function of the 10 [place] periappendiceal abscess drain.Continue flushing with 3 cc sterile saline twice daily and follow-up atthe discretion of the surgical team. NR us Joseluis Daily P.A.-C. IMG IR PROCEDURES Final Res ult * CT Abdomen Pelvis with IV Contrast (10/12/2024 10:10 AM INSPECTOR FILTER TIP) Anatomical Region Laterality Modality Abdomen, Pelvis, Abdominal R ST LOS, Abdominal ARZ LOS, Abdominal FLA LOS N/A Computed Tomograp hy, Computed Tomography 10/12/2024 10:1 4 AM INSPECTOR FILTER TIP Impressions 10/12/2024 11:36 AM INSPECTOR FILTER TIP Interval placement of a percutaneous pigtail catheter into a periappendiceal abscess, which has substantially decreased in size. However, administered enteric contrast does readily fill the periappendiceal abscess cavity. No new discrete, drainable fluid collection. Narrative 10/12/2024 11:36 AM INSPECTOR FILTER TIP EXAM: CT ABDOMEN PELVIS WITH IV CONTRAST [...] the cephalad aspect of the pigtail catheter ([id number]). No new discrete, drainable fluid collection. The [...] (ABNORMAL) CBC without Differential (10/12/2024 8:57 AM INSPECTOR FILTER TIP) Hemoglobin 13.8 13.2 - 16.6 g/dL 10/12/2024 9:30 AM INSPECTOR FILTER TIP DTL Hematocrit 41.9 38.3 - 48.6 % 10/12/2024 9:30 AM INSPECTOR FILTER TIP DTL Erythrocytes 4.57 4.35 - 5.65 x10(12)/L 10/12/2024 9:30 AM INSPECTOR FILTER TIP DTL MCV 91.7 78.2 - 97.9 fL 10/12/2024 9:30 AM INSPECTOR FILTER TIP DTL RBC Distrib Width 13.1 11.8 - 14.5 % 10/12/2024 9:30 AM INSPECTOR FILTER TIP DTL Platelet Count 350(H) 135 - 317 x10(9)/L 10/12/2024 9:30 AM INSPECTOR FILTER TIP DTL Leukocytes 9.4 3.4 - 9.6 x10(9)/L 10/12/2024 9:30 AM INSPECTOR FILTER TIP DTL Blood (Blood, Venous) 10/12/2024 8:57 AM INSPECTOR FILTER TIP 10/12/2024 9:10 AM INSPECTOR FILTER TIP Joseluis Daily P.A.-C. LAB BLOOD ADD-ON Final Resu lt [facility] [address] [place] [address], [facility] [address] [place] [address] documented in this encounter Visit Diagnoses Diagnosis Acute Appendicitis With Perforation Localized Peritonitis And Gangrene With Abscess- Primary Acute Appendicitis With Perforation Localized Peritonitis And Gangrene With Abscess Acute Appendicitis With Perforation Localized Peritonitis And Gangrene With Abscess documented in this encounter Care Teams Fumigator And Sterilizer Relationship Specialty Start Date End Date None Reported, Pcp PCP - General Family Medicine 10/06/24 documented as of this encounter
--- OUTSIDE RECORDS SUMMARY | 2024-10-19 16:44 | XMS_ITS | Encounter Summary ---
Author Organization [facility] Address [address] [place] [phone] Care Team Providers Care Physician Assistant Surgery Name Role Phone None Reported, Pcp Primary Care Provider Unavail able Reason for Referral * MRI/CAT/PET Scan (Routine) - Closed Specialty Diagnoses / Procedures Referred By Marybel stewart Referred To Contact Radiology Diagnoses Acute Appendicitis With Perforation Localized Peritonitis And Gangrene With Abscess Procedures CT Abdomen Pelvis with IV Contrast Joseluis Daily P.A.-C. [address] [place] [phone] Phone: tel: fax: [facility] Referral ID Status Reason Start Date Expiration Date Visits Re quested Visits Authorized [id number] Closed 10/09/2024 01/09/2026 1 1 ICATION SUPERVISOR Reason for Visit * MRI/CAT/PET Scan (Routine) - Closed Specialty Diagnoses / Procedures Referred By Contac t Referred To Contact Radiology Diagnoses Acute Appendicitis With Perforation Localized Peritonitis And Gangrene With Abscess Procedures CT Abdomen Pelvis with IV Contrast Joseluis Daily P.A.-C. [address] [place] [phone] Phone: tel: fax: [facility] Referral ID Status Reason Start Date Expiration Date Visits Re quested Visits Authorized [id number] Closed 10/09/2024 01/09/2026 1 1 Encounter Details Date Type Department Care Team (Latest Contact Info) Description 10/12/2024 9:05 AM FABRICATION SUPERVISOR - 10/12/2024 10:34 AM [facility] Encounter Department of Radiology, [facility], in [place], [place] [address] [place] [phone] Joseluis Daily P.A.-C. [address] [place] [phone] Acute Appendicitis With Perforation Localized Peritonitis And Gangrene With Abscess Discharge Disposition: Home or Self Care Social History Tobacco Use Types Packs/Day Years Used Date Smoking Tobacco: Never Smokeless Tobacco: Never [facility] Utilities Answer Date Recorded In the past [...] your living situation today? I have a [facility] place to live 10/08/2024 Sex and Gender Information Value Date Recorded Sex Assigned at Not on file Legal Sex Male 8:10 PM FABRICATION SUPERVISOR Gender Identity Not on file Sexual Orientation [...] normal saline. 300 mL 10/08/2024 8:45 PM FABRICATION SUPERVISOR 10/08/2024 ZINC ORAL Take 1 tablet by mouth daily. OTC - unknown dose/formulation amoxicillin-pot clavulanate (Augmentin) 875-125 mg per tabletIndications :Intra-abdominal infection, community acquired Take 1 tablet by mouth every 12 (twelve) hours for 5 days Indications: Intra-abdominal infection, community acquired. 9 tablet 10/08/2024 8:45 PM FABRICATION SUPERVISOR 10/08/2024 documented as of this encounter Nursing [...] role of person notified in receiving area: [facility], alma Sommer ICATION SUPERVISOR documented in this encounter Plan of Treatment Upcoming Encounters Date Type Department Care Team (Late st Contact Info) Description 11/17/2024 9:15 AM CDT Appointment Department of Radiology, [facility], in [place], [place] [address] [place] [phone] Schuyler Norman APRN, C.N.P., M.S.N. [address] [place] [phone] 11/17/2024 11:30 AM CDT Appointment Department of Radiology in [place], [place] [address] [place] [phone] Schuyler Norman APRN, C.N.P., M.S.N. [address] [place] [phone] 11/17/2024 1:00 PM CDT Office Visit Division of Trauma Critical Care and General Surgery in [address] [phone] Schuyler Norman APRN, C.N.P., M.S.N. [address] [place] [phone] documented as of this encounter Procedures Procedure Name Priority Date/Time Associated Diagnosis Comments CT ABDOMEN PELVIS WITH IV CONTRAST RAD - Routine (most inpatients and all outpatients) 10/12/2024 10:10 AM FABRICATION SUPERVISOR Acute Appendicitis With Perforation Localized Peritonitis And Gangrene With Abscess documented in this encounter Results * CT Abdomen Pelvis with IV Contrast (10/12/2024 10:10 AM FABRICATION SUPERVISOR) Anatomical Region Laterality Modality Abdomen, Pelvis, Abdominal R ST LOS, Abdominal ARZ LOS, Abdominal FLA LOS N/A Computed Tomograp hy, Computed Tomography 10/12/2024 10:1 4 AM FABRICATION SUPERVISOR Impressions 10/12/2024 11:36 AM FABRICATION SUPERVISOR Interval placement of a percutaneous pigtail catheter into a periappendiceal abscess, which has substantially decreased in size. However, administered enteric contrast does readily fill the periappendiceal abscess cavity. No new discrete, drainable fluid collection. Narrative 10/12/2024 11:36 AM FABRICATION SUPERVISOR EXAM: CT ABDOMEN PELVIS WITH IV CONTRAST [...] the cephalad aspect of the pigtail catheter (-[id number]). No new discrete, drainable fluid collection. The [...] mg for documentation. Given 10/12/2024 10:22 AM FABRICATION SUPERVISOR 9,000 mg iohexoL 300 mg iodine/mL solution 1-200 mL (Omnipaque) 1-200 mL, intravenous, Once in imaging, contrast, Starting on Susan 10/12/24 at 0914, For 1 dose, Imaging Protocol Orders, Dose per Radiant Medication Guidelines Given 10/12/2024 9:53 AM FABRICATION SUPERVISOR 140 mL sodium chloride (PF) 0.9 % injection 1-100 mL 1-100 mL, intravenous, Once, On Susan 10/12/24 at 0930, For 1 dose, Imaging Protocol Orders, Dose per Radiant Medication Guidelines Given 10/12/2024 9:53 AM FABRICATION SUPERVISOR 50 mL documented in this encounter Care Teams Physician Assistant Surgery Relationship Specialty Start Date End Date None Reported, Pcp PCP - General Family Medicine 10/06/24 documented as of this encounter
--- OUTSIDE RECORDS SUMMARY | 2024-10-19 16:44 | XMS_ITS | Clinical Summary ---
Author Organization [facility] Address [address] [place] [address] Care Team Providers Care Engraver Jewelry Name Role Phone None Reported, Pcp Primary Care Provider Unavail able Source Comments Patient records contain information from all sites at [facility]. For routine questions regarding patient records, call [phone] during business hours, M-F 8:00 AM - 5:00 PM Central Time. Record requests for emergency care only can be directed to [phone] at any time.[facility] Allergies No known active allergies Medications MAGNESIUM [...] normal saline. 300 mL 5 8:45 PM MELTER LOADER 10/08/19 25 Active sodium chloride (BD PosiFlush [...] infection, community acquired. 9 tablet 8:45 PM MELTER LOADER 10/08/192024 sodium chloride 0.9 % injection Infuse [...] Trauma Critical Care and General Surgery in [address] [phone] Gilma Yoon, C.N.P., R.N. 10/12/2024 2:15 PM MELTER LOADER Office Visit Division of Trauma Critical Care and General Surgery in [address] [phone] Joseluis Daily, PJayASchuyler Green APRN, C.N.P., M.S.N. Candido Simpson M.D. Acute Appendicitis With Perforation Localized Peritonitis And Gangrene With Abscess 10/12/2024 10:36 AM MELTER LOADER - 10/12/2024 12:51 PM MELTER LOADER Hospital Encounter Department of Radiology in [address] [phone] Joseluis Daily P.A.-C. Fleming, Chad J, M.D. Acute Appendicitis With Perforation Localized Peritonitis And Gangrene With Abscess Discharge Disposition: Home or Self Care 10/12/2024 9:05 AM MELTER LOADER - 10/12/2024 10:34 AM MELTER LOADER Hospital Encounter Department of Radiology, [facility], in [address] [phone] Joseluis Daily P.A.-C. Acute Appendicitis With Perforation Localized Peritonitis And Gangrene With Abscess Discharge Disposition: Home or Self Care 10/12/2024 Orders Only Division of Trauma Critical Care and General Surgery in [address] [phone] Schuyler Norman APRN, C.N.P., M.S.N. Acute Appendicitis With Perforation Localized Peritonitis And Gangrene With Abscess (Primary Dx) 10/09/2024 Clinical Communication [facility] [address] [place] [phone] Roya Clifton 10/09/2024 Clinical Communication [facility]ST [address] [phone] Joseluis Daily P.A.-C. Pre-visit Testing Orders 10/06/2024 4:35 AM MELTER LOADER Ancillary Procedure Department of General Surgery 10/06/2024 1:25 AM MELTER LOADER - 10/08/2024 8:57 PM MELTER LOADER Hospital [facility], Fifth Floor [address] [place] [phone] Letty Kevin P.A.-C. Zietlow, John M, M.D. Abdominal Pain (Primary Dx); Appendicitis Acute; Acute Appendicitis With Perforation Localized Peritonitis And Gangrene With Abscess Discharge Disposition: Home or Self Care 10/06/2024 1:15 AM MELTER LOADER Ancillary Procedure Department of Radiology in [place], [place] [address] [place] [address] Letty Kevin P.A.-C. 10/05/2024 Intake [facility] from Last 3 Months Social History Tobacco Use Types Packs/Day Years Used Date Smoking Tobacco: Never Smokeless Tobacco: Never Tobacco Cessation:Counseling Given: Not Answered [facility] Utilities Answer Date Recorded In the past 12 months has e Venda, oil, or water Proficiency threatened to shut off services in your [...] your living situation today? I have a [facility] place to live 10/08/2024 Sex and Gender Information Value Date Recorded Sex Assigned at Not on file Legal Sex Male 8:10 PM MELTER LOADER Gender Identity Not on file Sexual Orientation Not on file Last Filed Vital Signs Vital Sign Reading Time Taken Comments Blood Pressure 122/64 10/12/2024 12:39 PM MELTER LOADER Pulse 67 10/12/2024 12:39 PM MELTER LOADER Temperature 36.5 C (97.7 F) 10/12/2024 12:39 PM MELTER LOADER Respiratory Rate 16 10/12/2024 11:34 AM MELTER LOADER Oxygen Saturation 100% 10/12/2024 12:39 PM MELTER LOADER Inhaled Oxygen Concentration - - Weight 76.4 kg (168 lb 6.9 oz) 10/12/2024 11:34 AM MELTER LOADER Height 190.5 cm (6' 3) 10/08/2024 8:15 PM MELTER LOADER Body Mass Index 21.05 10/08/2024 8:15 PM MELTER LOADER Plan of Treatment Upcoming Encounters Date Type Department Care Team (Late st Contact Info) Description 11/17/2024 9:15 AM CDT Appointment Department of Radiology, [facility], in [place], [place] [address] [place] [phone] Schuyler Norman APRN, C.N.P., M.S.N. [address] [place] [phone] 11/17/2024 11:30 AM CDT Appointment Department of Radiology in [address] [phone] Schuyler Norman APRN, C.N.P., M.S.N. [address] [place] [phone] 11/17/2024 1:00 PM CDT Office Visit Division of Trauma Critical Care and General Surgery in [address] [phone] Schuyler Norman APRN, C.N.P., M.S.N. [address] [place] [phone] Health Maintenance Due Date Last Done Comments [...] inpatients and all outpatients) 10/12/2024 12:34 PM MELTER LOADER Acute Appendicitis With Perforation Localized Peritonitis And Gangrene With Abscess CT ABDOMEN PELVIS WITH IV CONTRAST RAD - Routine (most inpatients and all outpatients) 10/12/2024 10:10 AM MELTER LOADER Acute Appendicitis With Perforation Localized Peritonitis And Gangrene With Abscess CBC WITHOUT DIFFERENTIAL, B Routine 10/12/2024 8:57 AM MELTER LOADER Acute Appendicitis With Perforation Localized Peritonitis And Gangrene With Abscess CBC WITHOUT DIFFERENTIAL, B Timed 10/08/2024 5:10 AM MELTER LOADER ADULT OXYGEN THERAPY Routine 10/07/2024 8:01 PM MELTER LOADER MICROSCOPIC MANUAL Routine 10/07/2024 3: 26 PM MELTER LOADER DIPSTICK, U Routine 10/07/2024 3:26 PM MELTER LOADER PH, U Routine 10/07/2024 3:26 PM MELTER LOADER OSMOLALITY, U Routine 10/07/2024 3:26 PM MELTER LOADER URINALYSIS WITH MICROSCOPIC Routine 10/07/2024 3:26 PM MELTER LOADER GLUCOSE POCT, B Routine 10/07/2024 11:54 AM MELTER LOADER ADULT OXYGEN THERAPY Routine 10/07/2024 8:01 AM MELTER LOADER BASIC METABOLIC PANEL, S/P Timed 10/07/2024 6:30 AM MELTER LOADER CBC WITHOUT DIFFERENTIAL, B Timed 10/07/2024 6:30 AM MELTER LOADER ADULT OXYGEN THERAPY Routine 10/06/2024 8:01 PM MELTER LOADER FUNGAL SMEAR Timed 10/06/2024 5:19 PM MELTER LOADER Abdominal Pain Appendicitis Acute FUNGAL CULTURE, ROUTINE Timed 10/06/2024 5:19 PM MELTER LOADER Abdominal Pain Appendicitis Acute GRAM STAIN Timed 10/06/2024 5:19 PM MELTER LOADER Abdominal Pain Appendicitis Acute BACTERIAL CULTURE, AEROBIC + SUSC Timed 10/06/2024 5:19 PM MELTER LOADER Abdominal Pain Appendicitis Acute CT ABDOMEN AND/OR PELVIS DRAIN PLACEMENT RAD - Routine (most inpatients and all outpatients) 10/06/2024 4:15 PM MELTER LOADER PROTHROMBIN TIME (PT), P Timed 10/06/2024 9:15 AM MELTER LOADER ADULT OXYGEN THERAPY Routine 10/06/2024 8:02 AM MELTER LOADER INTERPRETATION OF OUTSIDE CT ABDOMEN AND OR PELVIS RAD - Semiurgent (Fast; most ED patients; some inpatients) 10/06/2024 5:26 AM MELTER LOADER SURGERY IMAGE EXAM Routine 10/06/2024 4: 35 AM MELTER LOADER ADULT OXYGEN THERAPY Routine 10/06/2024 4:23 AM MELTER LOADER ADULT OXYGEN THERAPY Routine 10/06/2024 4:23 AM MELTER LOADER ADULT OXYGEN THERAPY Routine 10/06/2024 4:23 AM MELTER LOADER BACTERIA / TIFF CULTURE, BLOOD STAT 10/06/2024 3:06 AM MELTER LOADER TYPE AND SCREEN Routine 10/06/2024 2:55 AM MELTER LOADER LIPASE, S/P STAT 10/06/2024 2:55 AM MELTER LOADER LACTATE, B/P STAT 10/06/2024 2:55 AM MELTER LOADER HEPATIC FUNCTION PANEL, S STAT 10/06/2024 2:55 AM MELTER LOADER BASIC METABOLIC PANEL, S/P STAT 10/06/2024 2:55 AM MELTER LOADER CBC WITH DIFFERENTIAL, B STAT 10/06/2024 2:55 AM MELTER LOADER BACTERIA / TIFF CULTURE, BLOOD STAT 10/06/2024 2:55 AM MELTER LOADER OUTSIDE CT BODY Routine 10/05/2024 6:30 PM MELTER LOADER from Last 3 Months Results * IR Abscess Drain Check (10/12/2024 12:34 PM MELTER LOADER) Anatomical Region Laterality Modality Body, Vascular Interventiona l RST LOS, Vascular Interventional ARZ LOS, Vascular Interventional FLA LOS N/A X-Ray Angiography Impressions 10/12/2024 4:08 PM MELTER LOADER Diagnostic sinogram of the right lower quadrant drain demonstrates good position and function of the 10 Botswanan periappendiceal abscess drain. Continue flushing with 3 cc sterile saline twice daily and follow-up at the discretion of the surgical team. NR Narrative 10/12/2024 4:08 PM MELTER LOADER EXAM: IR ABSCESS DRAIN CHECK CLINICAL HISTORY: [...] approximately 10 cc a day. TECHNIQUE: Fluoroscopic senior php developer image demonstrates a right lower quadrant drain [...] approximately 10 cc a day. TECHNIQUE: Fluoroscopic senior php developer image demonstrates a right lower quadrantdrain with [...] demonstrates goodposition and function of the 10 Botswanan periappendiceal abscess drain.Continue flushing with 3 cc sterile saline twice daily and follow-up atthe discretion of the surgical team. NR us Joseluis Yeny Daily P.A.-C. IMG IR PROCEDURES Final Res ult * CT Abdomen Pelvis with IV Contrast (10/12/2024 10:10 AM MELTER LOADER) Anatomical Region Laterality Modality Abdomen, Pelvis, Abdominal R ST LOS, Abdominal ARZ LOS, Abdominal FLA LOS N/A Computed Tomograp hy, Computed Tomography 10/12/2024 10:1 4 AM MELTER LOADER Impressions 10/12/2024 11:36 AM MELTER LOADER Interval placement of a percutaneous pigtail catheter into a periappendiceal abscess, which has substantially decreased in size. However, administered enteric contrast does readily fill the periappendiceal abscess cavity. No new discrete, drainable fluid collection. Narrative 10/12/2024 11:36 AM MELTER LOADER EXAM: CT ABDOMEN PELVIS WITH IV CONTRAST [...] the cephalad aspect of the pigtail catheter ([id number]). No new discrete, drainable fluid collection. The [...] (ABNORMAL) CBC without Differential (10/12/2024 8:57 AM MELTER LOADER) Only the most recent of3 resultswithin the time period is included. Hemoglobin 13.8 13.2 - 16.6 g/dL 10/12/2024 9:30 AM MELTER LOADER DTL Hematocrit 41.9 38.3 - 48.6 % 10/12/2024 9:30 AM MELTER LOADER DTL Erythrocytes 4.57 4.35 - 5.65 x10(12)/L 10/12/2024 9:30 AM MELTER LOADER DTL MCV 91.7 78.2 - 97.9 fL 10/12/2024 9:30 AM MELTER LOADER DTL RBC Distrib Width 13.1 11.8 - 14.5 % 10/12/2024 9:30 AM MELTER LOADER DTL Platelet Count 350(H) 135 - 317 x10(9)/L 10/12/2024 9:30 AM MELTER LOADER DTL Leukocytes 9.4 3.4 - 9.6 x10(9)/L 10/12/2024 9:30 AM MELTER LOADER DTL Blood (Blood, Venous) 10/12/2024 8:57 AM MELTER LOADER 10/12/2024 9:10 AM MELTER LOADER Joseluis Daily P.A.-C. LAB BLOOD ADD-ON Final Resu lt Performing Organization Address [facility] Co de Phone Number [facility] 200 [place] [address], [facility] 200 [place] [address] * (ABNORMAL) Dipstick, Urine (10/07/2024 3:26 PM MELTER LOADER) Hemoglobin, QL, U Negative Negative 10/07/2024 4:00 PM MELTER LOADER DTL Leukocyte Esterase, U Negative Negative 10/07/2024 4:00 PM MELTER LOADER DTL Nitrite, U Negative Negative 10/07/2024 4:00 PM MELTER LOADER DTL Ketone, U 10(A) Negative mg/dL 10/07/2024 4:00 PM MELTER LOADER DTL Glucose, U Negative Negative mg/dL 10/07/2024 4:00 PM MELTER LOADER DTL Urine 10/07/2024 3:26 PM MELTER LOADER 10/07/2024 3:44 PM MELTER LOADER Martita Rodrigues M.D. LAB URINE ORDERABLES Final Result Performing Organization Address [facility] de Phone Number [facility] 200 [place] [address], [facility] 200 [place] [address] * Microscopic Manual (10/07/2024 3:26 PM MELTER LOADER) Microscopy Normal 10/07/2024 4:16 PM MELTER LOADER DTL RBC <3 <3 /hpf 10/07/2024 4:16 PM MELTER LOADER DTL WBC None Seen /hpf 10/07/2024 4:16 PM MELTER LOADER DTL Comment: ----REFERENCE VALUE---- <4 (Males) <11 (Females) Casts, Hyaline Occas /lpf 10/07/2024 4:16 PM MELTER LOADER DT Urine 10/07/2024 3:26 PM MELTER LOADER 10/07/2024 3:59 PM MELTER LOADER Martita Rodrigues M.D. LAB URINE ORDERABLES Final Result Performing Organization Address City/[facility]/ZIP Co de Phone Number [facility] [address] 200 [place] [address] * pH, Urine (10/07/2024 3:26 PM MELTER LOADER) pH, U 5.5 4.5 - 8.0 10/07/2024 4:1 4 PM MELTER LOADER DT Urine 10/07/2024 3:26 PM MELTER LOADER 10/07/2024 3:44 PM MELTER LOADER Martita Rodrigues M.D. LAB URINE ORDERABLES Final Result Performing Organization Address City/[facility]/ZIP Co de Phone Number [facility] [address] [place] [address] * Osmolality, Urine (10/07/2024 3:26 PM MELTER LOADER) Osmolality, U 230 150 - 1150 mOsm/kg 10/07/2024 4:14 PM MELTER LOADER DT Urine 10/07/2024 3:26 PM MELTER LOADER 10/07/2024 3:44 PM MELTER LOADER Martita Rodrigues M.D. LAB URINE ORDERABLES Final Result Performing Organization Address City/[facility]/ZIP Co de Phone Number [facility] [address] [place] [address] * (ABNORMAL) Urinalysis, with Microscopic: Urine, Midstream (10/07/2024 3:26 PM MELTER LOADER) Source Urine, Urine, Midstream 10/07/2024 3:44 PM MELTER LOADER DTL Color, U Yellow 10/07/2024 3:44 PM MELTER LOADER DTL Clarity, U Clear 10/07/2024 3:44 PM MELTER LOADER DTL Protein, U 8 <26 mg/dL 10/07/2024 4:28 PM MELTER LOADER DTL Protein/Osmol ality 0.35 <0.42 ratio 10/07/2024 4:28 PM MELTER LOADER DTL Predicted 24 HR Protein, U 344(H) <229 mg/24 h 10/07/2024 4:28 PM MELTER LOADER DTL Predicted Range 109-1084 mg/24 h 10/07/2024 4:28 PM MELTER LOADER DTL Urine (Urine, Midstream) 10/07/2024 3:26 PM MELTER LOADER 10/07/2024 3:44 PM MELTER LOADER us Martita Rodrigues M.D. LAB URINE ORDERABLES Final Result Performing Organization Address City/[facility]/ZIP Co de Phone Number [facility] 200 [place] [address], [facility] DTL [facility] 200 [place] [address] * Glucose, POCT (10/07/2024 11:54 AM MELTER LOADER) Pathologist [facility] Glucose, POCT, B 91 70 - 140 mg/dL 10/07/2024 11:56 AM MELTER LOADER PCLX Site Capillary 10/07/2024 11:56 AM MELTER LOADER PCLX Blood 10/07/2024 11:5 4 AM MELTER LOADER 10/07/2024 11:57 AM MELTER LOADER us Unknown Provider LAB POCT ORDERABLES-MANUAL Alejandrina l Result [facility] [address] [place] [address], [facility] PCLX [facility] 200 [place] [address] * Basic Metabolic Panel (10/07/2024 6:30 AM MELTER LOADER) Only the most recent of2 resultswithin the time period is included. Potassium, S 4.7 3.6 - 5.2 mmol/L 10/07/2024 8:01 AM MELTER LOADER DTL Sodium, S 139 135 - 145 mmol/L 10/07/2024 8:01 AM MELTER LOADER DTL Chloride, S 103 98 - 107 mmol/L 10/07/2024 8:01 AM MELTER LOADER DTL Bicarbonate, S 23 22 - 29 mmol/L 10/07/2024 8:01 AM MELTER LOADER DTL Anion Gap 13 7 - 15 10/07/2024 8:01 AM MELTER LOADER DTL BUN (Blood Urea Nitrogen), S 10 8 - 24 mg/dL 10/07/2024 8:01 AM MELTER LOADER DTL Creatinine 0.80 0.74 - 1.35 mg/dL 10/07/2024 8:01 AM MELTER LOADER DTL Estimated GFR (eGFR) >90 >=60 mL/min/BSA 10/07/2024 8:01 AM MELTER LOADER DTL Comment: Estimated GFR calculated using the 2020 CKD_EPI creatinine equation. Calcium, Total, S 8.6 8.6 - 10.0 mg/dL 10/07/2024 8:01 AM MELTER LOADER DTL Glucose, S 89 70 - 140 mg/dL 10/07/2024 8:01 AM MELTER LOADER DTL Blood (Blood, Venous) 10/07/2024 6:30 AM MELTER LOADER 10/07/2024 7:38 AM MELTER LOADER Madalyn Tariq APRN, C.N.P., D.N.P. LAB BLOOD AD D-ON Final Result [facility] [address] [place] [address], [facility] [address] [place] [address] * (ABNORMAL) Bacterial Culture, Aerobic + Susceptibility (10/06/2024 5:19 PM MELTER LOADER) Bacterial Culture, Aerobic + Susc Culture yields >4 types of aerobic and/or anaerobic bacteria[place] [phone] if further identification is clinically required. (A) 10/10/2024 1:27 PM MELTER LOADER DTL Bacterial Culture, Aerobic + Susc GRAM POSITIVE COCCI Growth after 1 day (A) 10/10/2024 1:27 PM MELTER LOADER DTL Comment: Semi-Urgent Result. Not further identified. Bacterial Culture, Aerobic + Susc GRAM POSITIVE BACILLUS Growth after 1 day (A) 10/10/2024 1:27 PM MELTER LOADER DTL Comment: Semi-Urgent Result. Not further identified. Bacterial Culture, Aerobic + Susc ESCHERICHIA COLI Growth after 1 day (A) 10/10/2024 1:27 PM MELTER LOADER DTL Comment:Semi-Urgent Result. Bacterial Culture, Aerobic + Susc ENTEROBACTER CLOACAE COMPLEX Growth after 1 day (A) 10/10/2024 1:27 PM MELTER LOADER DTL Comment: This organism may contain an inducible beta-lactamase. Second- or third-generation cephalosporin monotherapy may result in the emergence of high-level resistance. Preferred empiric therapy, pending antimicrobial susceptibility results, is cefepime, a fluoroquinolone, or a carbapenem, unless clinically contraindicated. Semi-Urgent This is a semi-urgent result([place]) [facility] Fluid (Pelvis) 10/06/2024 2: 54 PM MELTER LOADER Narrative [facility] - 10/10/2024 1:27 PM MELTER LOADER Bacterial Culture: Received Bactec aerobic and Bactec anaerobic bottles us Saige Sung M.D. LAB MICROBIOLOGY - GENERAL ORDERABLES Final Result [facility] [address] [place] [address], [facility] [address] [place] [address] * Fungal Smear (10/06/2024 5:19 PM MELTER LOADER) Fungal Smear Negative. 10/06/2024 9:55 PM MELTER LOADER DTL Fluid (Pelvis) 10/06/2024 2: 54 PM MELTER LOADER Narrative [facility] - 10/06/2024 9:55 PM MELTER LOADER Bacterial Culture: Received Bactec aerobic and Bactec anaerobic bottles us Saige Sung M.D. LAB MICROBIOLOGY - GENERAL ORDERABLES Final Result Performing Organization Address [facility] Co de Phone Number [facility] 200 [place], [place] [address] [place] [address] 200 [place] [address] * (ABNORMAL) Gram Stain (10/06/2024 5:19 PM MELTER LOADER) Gram Stain White blood cells, Many(A) 10/06/2024 10:21 PM MELTER LOADER DTL Gram Stain GRAM NEGATIVE BACILLUS Moderate (A) 10/06/2024 10:21 PM MELTER LOADER DTL Gram Stain GRAM POSITIVE COCCI Moderate (A) 10/06/2024 10:21 PM MELTER LOADER DTL Fluid (Pelvis) 10/06/2024 2: 54 PM MELTER LOADER Narrative [facility] - 10/06/2024 10:21 PM MELTER LOADER Bacterial Culture: Received Bactec aerobic and Bactec anaerobic bottles Saige Sung M.D. LAB MICROBIOLOGY - GENERAL ORDERABLES Final Result Performing Organization Address [facility] Co de Phone Number [facility] 200 [place] [address], [facility] 200 [place] [address] * CT Abdomen and/or Pelvis Drain Placement (10/06/2024 4:15 PM MELTER LOADER) Anatomical Region Laterality Modality Abdominal RST LOS, Procedura l, Vascular Interventional ARZ LOS, Procedure FLA LOS, Procedural NWWI LOS N/A Computed Tomography, Compute d Tomography Impressions 10/06/2024 4:41 PM MELTER LOADER 1. Placement of a 10 Botswanan locking pigtail drainage catheter into the right lower quadrant periappendiceal abscess with 21 cc blood-tinged purulent pale yellow fluid removed. Cultures pending. 2. Recommend flushing and aspirating the catheter with 3 ml of saline twice daily. 3. Consider sinogram in interventional radiology in a few days for catheter evaluation. NR Narrative 10/06/2024 4:41 PM MELTER LOADER EXAM: CT ABDOMEN AND/OR PELVIS DRAIN PLACEMENT [...] abscess. INTRODUCER NEEDLE: 17-gauge DRAIN TYPE/SIZE: 10 Botswanan locking pigtail drainage catheter. VOLUME OF FLUID [...] abscess. INTRODUCER NEEDLE: 17-gauge DRAIN TYPE/SIZE: 10 Botswanan locking pigtail drainage catheter. VOLUME OF FLUID ASPIRATED: 21 cc APPEARANCE OF ASPIRATE: Blood tinged purulent pale yellow fluid. COMPLICATION: None. BLOOD LOSS: None. PATIENT INSTRUCTIONS: Patient may be dismissed from the radiologydepartment when dismissal criteria met. POST-PROCEDURE DIAGNOSIS: Right lower quadrant periappendiceal abscess. IMPRESSION: 1. Placement of a 10 Botswanan locking pigtail drainage catheter into theright lower quadrant periappendiceal abscess with 21 cc blood-tingedpurulent pale yellow fluid removed. Cultures pending. 2. Recommend flushing and aspirating the catheter with 3 ml of salinetwice daily. 3. Consider sinogram in interventional radiology in a few days forcatheter evaluation. NR Saige Sung M.D. IMG CT PROCEDURES Final Res ult * (ABNORMAL) Prothrombin Time (PT) (10/06/2024 9:15 AM MELTER LOADER) Prothrombin Time, P 16.4(H) 9.4 - 12.5 sec 10/06/2024 10:17 AM MELTER LOADER DTL INR 1.5 0.9 - 1.1 10/06/2024 10:17 AM MELTER LOADER DTL Comment: ----ADDITIONAL INFORMATION---- Standard intensity warfarin therapeutic range: 2.0 to 3.0 High intensity warfarin therapeutic range: 2.5 to 3.5 Blood (Blood, Venous) 10/06/2024 9:15 AM MELTER LOADER 10/06/2024 10:00 AM MELTER LOADER Madalyn Tariq APRN, C.N.P., D.N.P. LAB BLOOD AD D-ON Final Result [facility] [address] [place] [address], [facility] [address] [place] [address] * Interpretation of Outside CT Abdomen and or Pelvis (10/06/2024 5:26 AM MELTER LOADER) Anatomical Region Laterality Modality Abdomen, Pelvis, Abdominal R ST LOS, Abdominal ARZ LOS, Abdominal FLA LOS, Other N/A Computed Tomography Impressions 10/06/2024 5:53 AM MELTER LOADER Acute perforated appendicitis with developing abscess. Narrative 10/06/2024 5:53 AM MELTER LOADER EXAM: INTERPRETATION OF OUTSIDE CT ABDOMEN AND [...] * Unspecified-Surgery Image Exam (10/06/2024 4:35 AM MELTER LOADER) 10/06/2024 4:34 AM MELTER LOADER Narrative [facility] - 10/06/2024 4:37 AM MELTER LOADER This order has been created and auto-finalized to support the import of images acquired without order. The clinical documentation to support these images can be found on the encounter that produced images. Provider Not In System IMG NON RAD IMAGING PROCE DURES Final Result Performing Organization Address [facility] Co de Phone Number [facility] * Bacteria / Tiff Culture, Blood # 2 (10/06/2024 3:06 AM MELTER LOADER) Only the most recent of2 resultswithin the time period is included. Pathologist [facility] Bacteria/Mirtha da Culture, Blood No growth after 5 days of incubation. 10/11/2024 4:02 AM MELTER LOADER DTL Blood (Blood, Peripheral Draw) 10/06/2024 3:06 AM MELTER LOADER 10/06/2024 4:02 AM MELTER LOADER Comment:Specimen Source Site : Blood Letty Kevin P.A.-C. LAB MICROBIOLOGY - GENER AL ORDERABLES Final Result [facility] [address] [place] [address], [place] DTL [facility] [address] [place] [address] * (ABNORMAL) Hepatic Function Panel (10/06/2024 2:55 AM MELTER LOADER) Bilirubin, Total, S 0.8 0.0 - 1.2 mg/dL 10/06/2024 3:55 AM MELTER LOADER DTL Bilirubin, Direct, S 0.3 0.0 - 0.3 mg/dL 10/06/2024 3:55 AM MELTER LOADER DTL Aspartate Aminotransferase (AST), S 23 8 - 48 U/L 10/06/2024 3:55 AM MELTER LOADER DTL Alanine Aminotransferase (ALT), S 21 7 - 55 U/L 10/06/2024 3:55 AM MELTER LOADER DTL Alkaline Phosphatase, S 61 40 - 129 U/L 10/06/2024 3:55 AM MELTER LOADER DTL Albumin, S 3.4(L) 3.5 - 5.0 g/dL 10/06/2024 3:55 AM MELTER LOADER DTL Protein, Total, S 6.0(L) 6.3 - 7.9 g/dL 10/06/2024 3:55 AM MELTER LOADER DTL Blood (Blood, Venous) 10/06/2024 2:55 AM MELTER LOADER 10/06/2024 3:32 AM MELTER LOADER us Letty Kevin P.A.-C. LAB BLOOD ADD-ON Final R esult [facility] [address] [place] [address], [facility] [address] [place] [address] * (ABNORMAL) CBC with Differential, Blood (10/06/2024 2:55 AM MELTER LOADER) Hemoglobin 12.3(L) 13.2 - 16.6 g/dL 10/06/2024 3:16 AM MELTER LOADER STMA Hematocrit 35.8(L) 38.3 - 48.6 % 10/06/2024 3:16 AM MELTER LOADER STMA Erythrocytes 4.03(L) 4.35 - 5.65 x10(12)/L 10/06/2024 3:16 AM MELTER LOADER STMA MCV 88.8 78.2 - 97.9 fL 10/06/2024 3:16 AM MELTER LOADER STMA RBC Distrib Width 12.9 11.8 - 14.5 % 10/06/2024 3:16 AM MELTER LOADER STMA Platelet Count 252 135 - 317 x10(9)/L 10/06/2024 3:16 AM MELTER LOADER STMA Leukocytes 14.8(H) 3.4 - 9.6 x10(9)/L 10/06/2024 3:16 AM MELTER LOADER STMA Neutrophils 12.21(H) 1.56 - 6.45 x10(9)/L 10/06/2024 3:16 AM MELTER LOADER DHPM Lymphocytes 1.35 0.95 - 3.07 x10(9)/L 10/06/2024 3:16 AM MELTER LOADER STMA Monocytes 1.08(H) 0.26 - 0.81 x10(9)/L 10/06/2024 3:16 AM MELTER LOADER STMA Eosinophils 0.13 0.03 - 0.48 x10(9)/L 10/06/2024 3:16 AM MELTER LOADER STMA Basophils 0.04 0.01 - 0.08 x10(9)/L 10/06/2024 3:16 AM MELTER LOADER STMA Blood (Blood, Venous) 10/06/2024 2:55 AM MELTER LOADER 10/06/2024 3:12 AM MELTER LOADER us Letty Kevin P.A.-C. LAB BLOOD ADD-ON Final R esult [facility] [address] [place] [address], [facility] STMA [facility] [address] [place] [address] DHPM [facility] [address] [place] [address] * Type and Screen (with Reflex Antibody ID) (10/06/2024 2:55 AM MELTER LOADER) Pathologist [facility] ABORh A Pos Not applicable 10/06/2024 3:32 AM MELTER LOADER STRM Antibody Screen Negative Negative 10/06/2024 3:48 AM MELTER LOADER STRM Type & Screen Expiration 10/09/2024 23:59 10/06/2024 3:32 AM MELTER LOADER STRM Testing Location Agustin DEFAULT 10/06/2024 3:14 AM MELTER LOADER STRM Blood (Blood, Venous) 10/06/2024 2:55 AM MELTER LOADER 10/06/2024 3:14 AM MELTER LOADER us Syril A Dorita P.A.-C. LAB BLOOD BANK TEST ORDAurora FERNANDES Final Result Performing Organization Address [facility] Co de Phone Number [facility] [address] STRM [facility] [address] [place] [address] * Lipase (10/06/2024 2:55 AM MELTER LOADER) Lipase, S 26 13 - 60 U/L 10/06/2024 3: 55 AM MELTER LOADER DTL Blood (Blood, Venous) 10/06/2024 2:55 AM MELTER LOADER 10/06/2024 3:32 AM MELTER LOADER Letty Kevin P.A.-C. LAB BLOOD ADD-ON Final R esult Performing Organization Address [facility] Co de Phone Number [address] [facility] [address] [place] [address] * Lactate (10/06/2024 2:55 AM MELTER LOADER) Lactate, P 1.0 0.5 - 2.2 mmol/L 10/06/2024 3:24 AM MELTER LOADER [facility] Blood (Blood, Venous) 10/06/2024 2:55 AM MELTER LOADER 10/06/2024 3:12 AM MELTER LOADER Letty VictoriaC. LAB BLOOD NON ADD-ON Fin al Result Performing Organization Address [facility] Co de Phone Number [facility] [address] [place] [address] * CT ABDOMEN PELVIS W CON-Outside CT Body (10/05/2024 6:30 PM MELTER LOADER) 10/05/2024 6:27 PM MELTER LOADER Narrative [facility]IMS - 10/05/2024 8:35 PM MELTER LOADER This order has been created and auto-finalized [...] Advance Directives For more information, please contact: [phone] * Full Code (Latest Code Status on File) Date Activated Date Inactivated Comments 10/06/2024 4:23 AM 10/08/2024 11:02 PM Question Answer Comments Full Code: Discussed Care Teams Engraver Jewelry Relationship Specialty Start Date End Date None Reported, Pcp PCP - General Family Medicine 10/06/24
--- OUTSIDE RECORDS SUMMARY | 2024-10-19 16:44 | XMS_ITS | Encounter Summary ---
Author Organization [facility] Address [address] [place] [id number] Care Team Providers Care Storehouse Clerk Name Role Phone None Reported, Pcp Primary Care Provider Unavail able Reason for Referral * Outpatient (Routine) - Closed Specialty Diagnoses / Procedures Referred By Marybel stewart Referred To Contact Radiology Diagnoses Acute Appendicitis With Perforation Localized Peritonitis And Gangrene With Abscess Procedures IR Abscess Drain Check Joseluis Daily P.A.-C. [address] [place] [phone] Phone: tel: fax: [facility] Referral ID Status Reason Start Date Expiration Date Visits Re quested Visits Authorized [id number] Closed 10/09/2024 01/09/2026 1 1 LIFEGUARD Reason for Visit * Outpatient (Routine) - Closed Specialty Diagnoses / Procedures Referred By Contac t Referred To Contact Radiology Diagnoses Acute Appendicitis With Perforation Localized Peritonitis And Gangrene With Abscess Procedures IR Abscess Drain Check Joseluis Daily P.A.-C. [address] [place] [phone] Phone: tel: fax: [facility] Referral ID Status Reason Start Date Expiration Date Visits Re quested Visits Authorized [id number] Closed 10/09/2024 01/09/2026 1 1 Encounter Details Date Type Department Care Team (Latest Contact Info) Description 10/12/2024 10:36 AM POOL LIFEGUARD - 10/12/2024 12:51 PM POOL LIFEGUARD Hospital Encounter Department of Radiology in [place], [place] [address] [place] [phone] Joseluis Daily P.A.-C. 200 [place] [phone] Leonid Santos M.D. 200 [place] [phone] Acute Appendicitis With Perforation Localized Peritonitis And Gangrene With Abscess Discharge Disposition: Home or Self Care Social History Tobacco Use Types Packs/Day Years Used Date Smoking Tobacco: Never Smokeless Tobacco: Never Tobacco Cessation:Counseling Given: Not Answered [facility] [employer] Answer Date Recorded In the past 12 months has e [employer], gas, oil, or water [employer] threatened to shut off services in your [...] your living situation today? I have a [facility] place to live 10/08/2024 Sex and Gender Information Value Date Recorded Sex Assigned at Not on file Legal Sex Male 8:10 PM POOL LIFEGUARD Gender Identity Not on file Sexual Orientation Not on file documented as of this encounter Last Filed Vital Signs Vital Sign Reading Time Taken Comments Blood Pressure 122/64 10/12/2024 12:39 PM POOL LIFEGUARD Pulse 67 10/12/2024 12:39 PM POOL LIFEGUARD Temperature 36.5 C (97.7 F) 10/12/2024 12:39 PM POOL LIFEGUARD Respiratory Rate 16 10/12/2024 11:34 AM POOL LIFEGUARD Oxygen Saturation 100% 10/12/2024 12:39 PM POOL LIFEGUARD Inhaled Oxygen Concentration - - Weight 76.4 kg (168 lb 6.9 oz) 10/12/2024 11:34 AM POOL LIFEGUARD Height - - Body Mass Index 21.05 10/08/2024 8:15 PM POOL LIFEGUARD documented in this encounter Medications at Time [...] normal saline. 300 mL 10/08/2024 8:45 PM POOL LIFEGUARD 10/08/2024 ZINC ORAL Take 1 tablet by mouth daily. OTC - unknown dose/formulation amoxicillin-pot clavulanate (Augmentin) 875-125 mg per tabletIndications :Intra-abdominal infection, community acquired Take 1 tablet by mouth every 12 (twelve) hours for 5 days Indications: Intra-abdominal infection, community acquired. 9 tablet 10/08/2024 8:45 PM POOL LIFEGUARD 10/08/2024 documented as of this encounter Plan of Treatment Upcoming Encounters Date Type Department Care Team (Late st Contact Info) Description 11/17/2024 9:15 AM CDT Appointment Department of Radiology, [facility], in [place], [place] [address] [place] [phone] Schuyler Norman APRN, C.N.P., M.S.N. [address] [place] [phone] 11/17/2024 11:30 AM CDT Appointment Department of Radiology in [place], [place] [address] [place] [phone] Schuyler Norman APRN, C.N.P., M.S.N. [address] [place] [phone] 11/17/2024 1:00 PM CDT Office Visit Division of Trauma Critical Care and General Surgery in [address] [phone] Schuyler Norman APRN, C.N.P., M.S.N. [address] [place] [phone] documented as of this encounter Procedures Procedure Name Priority Date/Time Associated Diagnosis Comments IR ABSCESS DRAIN CHECK RAD - Routine (most inpatients and all outpatients) 10/12/2024 12:34 PM POOL LIFEGUARD Acute Appendicitis With Perforation Localized Peritonitis And Gangrene With Abscess documented in this encounter Results * IR Abscess Drain Check (10/12/2024 12:34 PM POOL LIFEGUARD) Anatomical Region Laterality Modality Body, Vascular Interventiona l RST LOS, Vascular Interventional ARZ LOS, Vascular Interventional FLA LOS N/A X-Ray Angiography Impressions 10/12/2024 4:08 PM POOL LIFEGUARD Diagnostic sinogram of the right lower quadrant drain demonstrates good position and function of the [place] periappendiceal abscess drain. Continue flushing with 3 cc sterile saline twice daily and follow-up at the discretion of the surgical team. NR Narrative 10/12/2024 4:08 PM POOL LIFEGUARD EXAM: IR ABSCESS DRAIN CHECK CLINICAL HISTORY: [...] approximately 10 cc a day. TECHNIQUE: Fluoroscopic wood handler image demonstrates a right lower quadrant drain [...] approximately 10 cc a day. TECHNIQUE: Fluoroscopic wood handler image demonstrates a right lower quadrantdrain with [...] demonstrates goodposition and function of the 10 [place] periappendiceal abscess drain.Continue flushing with 3 cc [...] at 1234, Intra-Op Given 10/12/2024 12:34 PM POOL LIFEGUARD 8 mL documented in this encounter Active and Recently Administered Medications Times are shown in POOL LIFEGUARD. PRN Medication Order 10/10/2024 10/11/2024 10/12/2024 iohexoL 300 mg iodine/mL solution (Omnipaque) (COMPLETED) As needed, Starting on Susan 10/12/24 at 1234, Intra-Op 1234 (Given - Provid er: Leonid Santos M.D.) documented in this encounter Care Teams Storehouse Clerk Relationship Specialty Start Date End Date None Reported, Pcp PCP - General Family Medicine 10/06/24 documented as of this encounter
--- OUTSIDE RECORDS SUMMARY | 2024-10-19 16:45 | XMS_ITS | Encounter Summary ---
Author Organization [facility] Address [address] [place] [id number] Care Team Providers Care Whip Sawyer Name Role Phone None Reported, Pcp Primary [...] Expiration Date Visits Re quested Visits Authorized [id number] 1 1 Encounter Details Date Type Department Care Team (Latest Contact Info) Description 10/06/2024 1:25 AM CONSTRUCTION CHECKER - 10/08/2024 8:57 PM CONSTRUCTION CHECKER Hospital Encounter [facility], Fifth Floor [address] [place] [phone] Letty Kevin, PJayAJay-CJay [address] [place] [phone] Tripp Oneal M.D. [address] [place] [phone] Abdominal Pain (Primary Dx); Appendicitis Acute; Acute Appendicitis With Perforation Localized Peritonitis And Gangrene With Abscess Discharge Disposition: Home or Self Care Social History Tobacco Use Types Packs/Day Years Used Date Smoking Tobacco: Never Tobacco Cessation:Counseling Given: Not Answered [facility] Utilities Answer Date Recorded In the past 12 months has [employer] gas, oil, or water company threatened to [...] living situation today? I have a [facility] place to live 10/08/2024 Sex and Gender Information Value Date Recorded Sex Assigned at Not on file Legal Sex Male 8:10 PM CONSTRUCTION CHECKER Gender Identity Not on file Sexual Orientation Not on file documented as of this encounter Last Filed Vital Signs Vital Sign Reading Time Taken Comments Blood Pressure 101/54 10/08/2024 8:15 PM CONSTRUCTION CHECKER Pulse 63 10/08/2024 8:15 PM CONSTRUCTION CHECKER Temperature 36.7 C (98.1 F) 10/08/2024 5:15 PM CONSTRUCTION CHECKER Respiratory Rate 16 10/08/2024 5:15 PM CONSTRUCTION CHECKER Oxygen Saturation 98% 10/08/2024 8:15 PM CONSTRUCTION CHECKER Inhaled Oxygen Concentration - - Weight 75 kg (165 lb 5.5 oz) 10/06/2024 4:28 AM CONSTRUCTION CHECKER Height 190.5 cm (6' 3) 10/08/2024 8:15 PM CONSTRUCTION CHECKER Body Mass Index 20.67 10/06/2024 4:28 AM CONSTRUCTION CHECKER documented in this encounter Functional Status * Intimate Partner Violence Question Answer Date of Assessment Author Within the last year, have y ou been humiliated or emotionally abused in other ways by your partner or ex-partner? No 10/08/2024 7:00 PM CONSTRUCTION CHECKER Jade Haq, R.N. Within the last year, have y ou been afraid of your partner or ex-partner? No 10/08/2024 7:00 PM CONSTRUCTION CHECKER Riaz Haq, RJayN. Within the last year, have y ou been raped or forced to have any kind of sexual activity by your partner or ex-partner? No 10/08/2024 7:00 PM CONSTRUCTION CHECKER Jade Quinn, R.N. Within the last year, have y ou been kicked, hit, slapped, or otherwise physically hurt by your partner or ex-partner? No 10/08/2024 7:00 PM CONSTRUCTION CHECKER Jade Quinn, R.N. documented as of this encounter Discharge Summaries * Madalyn Tariq, RADHA, C.N.P., D.N.P. - 10/08/2024 1:42 PM CST DISCHARGE SUMMARY BRIEF OVERVIEW Hospital: [facility] Discharge Provider: Tripp Oneal M.D. Primary Team: [facility] Primary Care Providers: None Reported, Pcp (General) [...] appointment in the mail to see a steam plant operator of the [facility] Surgical Service on 10/12/[address] scan and sinogram. If you do not receive an appointment please call [phone]. If you need to speak with them during office hours you may call the Hospital Surgical secretary to the vice president at [phone]. If you need to reach a provider on the Hospital Surgical Service after hours, you may call the [facility] barber shop operator at [phone] and ask to speak the provider assistant professor nurse education. If you have forms that need addressed by the surgery team or outside records that need to be uploaded, please email them to [email or web address] or fax them at [phone]. PRIMARY CARE PROVIDER: You should follow up [...] HOSPITAL COURSE Johnny Vann was transferred to [facility] from [facility] for management of ruptured appendicitis [...] CT guided drain placement of a 10 Ethiopian looking loop pigtail drainage catheter on 10/06. [...] spent in discharge services today: 25 minutes. TRUCTION CHECKER documented in this encounter Discharge Instructions * Attachments The following attachments cannot be sent through Care Everywhere. * Acetaminophen (By mouth) (Thai) * Amoxicillin/Clavulanate Potassium (By mouth) (Thai) * Senna (By mouth) (Thai) * Sodium Chloride (By injection) (Thai) documented in this encounter Medications at Time [...] normal saline. 300 mL 10/08/2024 8:45 PM CONSTRUCTION CHECKER 10/08/2024 ZINC ORAL Take 1 tablet by mouth daily. OTC - unknown dose/formulation amoxicillin-pot clavulanate (Augmentin) 875-125 mg per tabletIndications :Intra-abdominal infection, community acquired Take 1 tablet by mouth every 12 (twelve) hours for 5 days Indications: Intra-abdominal infection, community acquired. 9 tablet 10/08/2024 8:45 PM CONSTRUCTION CHECKER 10/08/2024 documented as of this encounter Progress [...] any questions or concerns please page the [facility]-B service at [phone]. TRUCTION CHECKER * Madalyn Tariq APRN, C.N.PJay, D.N.P. - [...] 10/06/2024 Impression: 1. Placement of a 10 Ethiopian locking pigtail drainage catheter into the right [...] concerns please page the HSS-B service at [phone]. TRUCTION CHECKER * Tripp Oneal M.D. - 10/06/2024 1:45 PM CST This is a supervisory note for the HSS B Team. I agree with plans as outlined. Briefly, 18-year-old male who is a student at [employer] and presents with a 2 week historyof [...] Hemoglobin 12.3 and white blood cell count [address]47[address]. Creatinine 0.7 and lactate is 1. Should the patient clinically decompensate, not get better on IV antibiotics and drain placement, then the patient will require operative intervention which could entail appendectomy, ileocecectomy, or right hemicolectomy. The patient is understanding of this and is in agreement with the plan. Please see HSS team note for any further details. TRUCTION CHECKER * Rony Astorga PharmVasquez, R.Ph. - 10/06/2024 10:25 AM CST Images from the original note were not included. Pharmacist Progress Note Reason for admission: Acute Appendicitis With Perforation Localized Peritonitis And Gangrene With Abscess PMH: no pertinent PMH OBJECTIVE Home medications: Reviewed by [facility] Held: OTC supplants Changed: - New: ABX [...] by mouth daily. OTC - unknown dose/formulation Rony Astorga Pharm.D., R.Ph. TRUCTION CHECKER * Jorgito Pereyra M.D., Ph.D. - 10/06/2024 4:03 AM CST REASON FOR CONSULT Complicated appendicitis (perforation with abscess) REFERRING PROVIDER Emergency department physician SUBJECTIVE SUPERVISORY NOTE I have discussed the care of Mr. Vann with the resident/[facility] team. Please see the team's documentation from [...] poisoning and was selfmedicating at home with [id number] remedies. After nearly 2 weeks with a relief, patient therefore decided to presented to an outside facility earlier in the evening. He had a complete workup which revealed the diagnosis of a perforated appendicitis for which he was subsequently transferred to [facility] for further care. Patient is otherwise healthy [...] fails, he will likely require a laparotomy. TRUCTION CHECKER documented in this encounter Consult Notes * Gabrielle Varghese R.N. - 10/08/2024 1:59 PM CSTAssociated Order(s): IP CONSULT TO CARE MANAGEMENT SUBJECTIVE Lab Tester received consult to discuss transportation supports for patient. Patient declined consult as he has arranged transportation. OBJECTIVE Patient was sitting up in bed with grandmother at bedside on FR5C room 101. ASSESSMENT / PLAN ASSESSMENT Lab Tester met with patient due to a consult being placed for transportation assistance. Patient indicated that he has worked out a plan as his mother is going to fly in from [place] and will rent acar to bring him back to college. His grandmother that accompanies him lives in [place], [place] and will stay present until his mother is able to come. Patient stated he is staying at [facility]. PLAN Patient mother will provide transportation at discharge. 2. Lab Tester will sign off. Gabrielle Varghese R.N. 10/08/24 TRUCTION CHECKER * Aditya Rodriguez M.D. - 10/06/2024 4:35 [...] with partial relief. He was transferred from [place] ED overnight after CT demonstrated perforated appendicitis [...] & Screen Expiration 10/09/2024 23:59 Testing Location [place] ASSESSMENT/PLAN Johnny Dunaway is a very pleasant [...] concerns please page the HSS-B service at [phone]. TT: 30 minutes, CT > 50%. The patient understands and agrees with the plan of care. TRUCTION CHECKER * Saige Sung M.D. - 10/06/2024 4:11 AM CSTAssociated Order(s): IP CONSULT TO GENERAL SURGERY History and Physical Hospital Day: 1 CHIEF COMPLAINT/REASON FOR VISIT: Appendicitis with abscess JOSEPH Vann is a 18 y.o. male who presents for evaluation of complicated appendicitis with abscess. He was transferred from [facility] ([place]) after workup for R abdominal pain. Patient [...] 14.8 from reported 23 since arrival to [facility] ED. Reviewed CT from outside facility as well as outside documentation uploaded via [employer]. We will admit the patient for IV fluid rehydration, CT drain placement, IV antibiotics including ceftriaxone and Flagyl. He will be NPO prior to CT drain placement. Plan for interval appendectomy months after this episode. PLAN: -Admit to HSS B team -IVF -Ceftriaxone/flagyl Please reach out to HSS-B team with any questions concerns by paging [phone] (S-B). Plan and assessment were discussed with [...] 020 No current outpatient medications on file. TRUCTION CHECKER TRUCTION CHECKER documented in this encounter Nursing Notes * [...] this evening, awaiting for mom, arriving to [facility] from [facility] then driving to [place]. Likely to Dc around8-9 pm. Will go over discharge instructions once mom arrives. Nursing will continue lucrecia monitor and assess. TRUCTION CHECKER * Gladys Granger R.N. - 10/07/2024 10:57 [...] plan, medications, and discharge instructions Outcome: Progressing TRUCTION CHECKER * Annika Coe R.N. - 10/07/2024 12:24 [...] Nursing will continue to monitor and assess. TRUCTION CHECKER documented in this encounter ED Notes * Letty Kevin P.A.-C. - 10/06/2024 1:19 AM CST Images from the original note were not included. SUBJECTIVE CHIEF COMPLAINT/REASON FOR VISIT Abdominal Pain HISTORY OF PRESENT ILLNESS Johnny Vann is a 18 y.o. male with no pertinent medical history transferred via EMS from [place] Emergency Department for concerns for ruptured pending with abscess. Patient reported that he had developed acute onset of abdominal pain proximally 2 weeks ago which he assumed it was secondary to food poisoning. Patient abdominal pain did not improve. Patient was seen at urgent care today who assumed that the patient was jaundice and sent him to the be seen in [facility] Emergency Department. At [facility] Emergency Department patient was febrile with a [...] tenderness at McBurney's point, negative Peguero's sign,no Redstone sign and no Rovsing's sign. No hernia. [...] pertinent medical history transferred via EMS from [place] Emergency Department for concerns for ruptured pending [...] any additional antibiotics at this time. General bath design sales consultant Dr. Pereyra came down to the ED [...] ED Course. Case reviewed with other health career services manager, including Admitting Provider and Surgery. CPR: No [...] Appendicitis Acute Letty Kevin P.A.-C. 10/06/24 0346 TRUCTION CHECKER * Ghazal To R.N. - 10/06/2024 12:31 AM CST Patient here via [place] [facility] for complaints of appendiceal abscess and general surgery eval. Patient has been sick for the past two weeks with abdominal pain. Patient was seen at urgent care todaywho then referred him to go to ED in [place]. Patient denies pain on arrival. Antibiotics given at previous ER. 20G RAC with LR running. VSS. Ghazal To R.N. 10/06/24 0036 TRUCTION CHECKER documented in this encounter Miscellaneous Notes * Hospital Course - StanMadalyn montejo APRN, C.N.Adelita, D.N.P. - 10/06/2024 6:32 AM CST Johnny Vann was transferred to [facility] from [facility] for management of ruptured appendicitis [...] CT guided drain placement of a 10 Ethiopian looking loop pigtail drainage catheter on 10/06. [...] determine if further antibiotic therapy is needed. TRUCTION CHECKER TRUCTION CHECKER TRUCTION CHECKER TRUCTION CHECKER TRUCTION CHECKER TRUCTION CHECKER documented in this encounter Plan of Treatment Upcoming Encounters Date Type Department Care Team (Late st Contact Info) Description 11/17/2024 9:15 AM CDT Appointment Department of Radiology, [facility], in [place], [place] [address] [place] [phone] Schuyler Norman APRN, Yennifer.N.P., M.S.N. [address] [place] [phone] 11/17/2024 11:30 AM CDT Appointment Department of Radiology in [place], [place] [address] [place] [phone] Schuyler Norman APRN, Yennifer.N.P., M.S.N. [address] [place] [phone] 11/17/2024 1:00 PM CDT Office Visit Division of Trauma Critical Care and General Surgery in [place], [place] [address] [place] [phone] Schuyler Norman APRN, C.N.P., M.S.N. [address] [place] [phone] Pending Results Name Type Priority Associated Diagnoses Date /Time Fungal Culture, Routine Microbiology Timed Abdominal Pain Appendicitis Acute 10/06/2024 5:19 PM CONSTRUCTION CHECKER documented as of this encounter Procedures Procedure Name Priority Date/Time Associated Diagnosis Comments CBC WITHOUT DIFFERENTIAL, B Timed 10/08/2024 5:10 AM CONSTRUCTION CHECKER ADULT OXYGEN THERAPY Routine 10/07/2024 8:01 PM CONSTRUCTION CHECKER DIPSTICK, U Routine 10/07/2024 3:26 PM CONSTRUCTION CHECKER MICROSCOPIC MANUAL Routine 10/07/2024 3: 26 PM CONSTRUCTION CHECKER PH, U Routine 10/07/2024 3:26 PM CONSTRUCTION CHECKER OSMOLALITY, U Routine 10/07/2024 3:26 PM CONSTRUCTION CHECKER URINALYSIS WITH MICROSCOPIC Routine 10/07/2024 3:26 PM CONSTRUCTION CHECKER GLUCOSE POCT, B Routine 10/07/2024 11:54 AM CONSTRUCTION CHECKER ADULT OXYGEN THERAPY Routine 10/07/2024 8:01 AM CONSTRUCTION CHECKER CBC WITHOUT DIFFERENTIAL, B Timed 10/07/2024 6:30 AM CONSTRUCTION CHECKER BASIC METABOLIC PANEL, S/P Timed 10/07/2024 6:30 AM CONSTRUCTION CHECKER ADULT OXYGEN THERAPY Routine 10/06/2024 8:01 PM CONSTRUCTION CHECKER BACTERIAL CULTURE, AEROBIC + SUSC Timed 10/06/2024 5:19 PM CONSTRUCTION CHECKER Abdominal Pain Appendicitis Acute FUNGAL SMEAR Timed 10/06/2024 5:19 PM CONSTRUCTION CHECKER Abdominal Pain Appendicitis Acute GRAM STAIN Timed 10/06/2024 5:19 PM CONSTRUCTION CHECKER Abdominal Pain Appendicitis Acute FUNGAL CULTURE, ROUTINE Timed 10/06/2024 5:19 PM CONSTRUCTION CHECKER Abdominal Pain Appendicitis Acute CT ABDOMEN AND/OR PELVIS DRAIN PLACEMENT RAD - Routine (most inpatients and all outpatients) 10/06/2024 4:15 PM CONSTRUCTION CHECKER PROTHROMBIN TIME (PT), P Timed 10/06/2024 9:15 AM CONSTRUCTION CHECKER ADULT OXYGEN THERAPY Routine 10/06/2024 8:02 AM CONSTRUCTION CHECKER INTERPRETATION OF OUTSIDE CT ABDOMEN AND OR PELVIS RAD - Semiurgent (Fast; most ED patients; some inpatients) 10/06/2024 5:26 AM CONSTRUCTION CHECKER ADULT OXYGEN THERAPY Routine 10/06/2024 4:23 AM CONSTRUCTION CHECKER ADULT OXYGEN THERAPY Routine 10/06/2024 4:23 AM CONSTRUCTION CHECKER ADULT OXYGEN THERAPY Routine 10/06/2024 4:23 AM CONSTRUCTION CHECKER BACTERIA / TIFF CULTURE, BLOOD STAT 10/06/2024 3:06 AM CONSTRUCTION CHECKER HEPATIC FUNCTION PANEL, S STAT 10/06/2024 2:55 AM CONSTRUCTION CHECKER BACTERIA / TIFF CULTURE, BLOOD STAT 10/06/2024 2:55 AM CONSTRUCTION CHECKER CBC WITH DIFFERENTIAL, B STAT 10/06/2024 2:55 AM CONSTRUCTION CHECKER TYPE AND SCREEN Routine 10/06/2024 2:55 AM CONSTRUCTION CHECKER LIPASE, S/P STAT 10/06/2024 2:55 AM CONSTRUCTION CHECKER LACTATE, B/P STAT 10/06/2024 2:55 AM CONSTRUCTION CHECKER BASIC METABOLIC PANEL, S/P STAT 10/06/2024 2:55 AM CONSTRUCTION CHECKER documented in this encounter Results * (ABNORMAL) CBC without Differential (10/08/2024 5:10 AM CONSTRUCTION CHECKER) Pathologist [facility] Hemoglobin 12.8(L) 13.2 - 16.6 g/dL 10/08/2024 7:28 AM CONSTRUCTION CHECKER DTL Hematocrit 38.2(L) 38.3 - 48.6 % 10/08/2024 7:28 AM CONSTRUCTION CHECKER DTL Erythrocytes 4.21(L) 4.35 - 5.65 x10(12)/L 10/08/2024 7:28 AM CONSTRUCTION CHECKER DTL MCV 90.7 78.2 - 97.9 fL 10/08/2024 7:28 AM CONSTRUCTION CHECKER DTL RBC Distrib Width 12.9 11.8 - 14.5 % 10/08/2024 7:28 AM CONSTRUCTION CHECKER DTL Platelet Count 306 135 - 317 x10(9)/L 10/08/2024 7:28 AM CONSTRUCTION CHECKER DTL Leukocytes 7.4 3.4 - 9.6 x10(9)/L 10/08/2024 7:28 AM CONSTRUCTION CHECKER DTL Blood (Blood, Venous) 10/08/2024 5:10 AM CONSTRUCTION CHECKER 10/08/2024 5:42 AM CONSTRUCTION CHECKER us Madalyn Tariq APRN, C.N.P., FiordalizaNJayPJay LAB BLOOD AD D-ON Final Result Performing Organization Address [facility] [place] [address] * Microscopic Manual (10/07/2024 3:26 PM CONSTRUCTION CHECKER) Pathologist [facility] Microscopy Normal 10/07/2024 4:16 PM CONSTRUCTION CHECKER DTL RBC <3 <3 /hpf 10/07/2024 4:16 PM CONSTRUCTION CHECKER DTL WBC None Seen /hpf 10/07/2024 4:16 PM CONSTRUCTION CHECKER DTL Comment: ----REFERENCE VALUE---- <4 (Males) <11 (Females) Casts, Hyaline Occas /lpf 10/07/2024 4:16 PM CONSTRUCTION CHECKER DTL Urine 10/07/2024 3:26 PM CONSTRUCTION CHECKER 10/07/2024 3:59 PM CONSTRUCTION CHECKER Martita Rodrigues M.D. LAB URINE ORDERABLES Final Result Performing Organization Address [facility] [place] [address] * (ABNORMAL) Dipstick, Urine (10/07/2024 3:26 PM CONSTRUCTION CHECKER) Pathologist [facility] Hemoglobin, QL, U Negative Negative 10/07/2024 4:00 PM CONSTRUCTION CHECKER DTL Leukocyte Esterase, U Negative Negative 10/07/2024 4:00 PM CONSTRUCTION CHECKER DTL Nitrite, U Negative Negative 10/07/2024 4:00 PM CONSTRUCTION CHECKER DTL Ketone, U 10(A) Negative mg/dL 10/07/2024 4:00 PM CONSTRUCTION CHECKER DTL Glucose, U Negative Negative mg/dL 10/07/2024 4:00 PM CONSTRUCTION CHECKER DTL Urine 10/07/2024 3:26 PM CONSTRUCTION CHECKER 10/07/2024 3:44 PM CONSTRUCTION CHECKER Martita Rodrigues M.D. LAB URINE ORDERABLES Final Result Performing Organization Address City/[facility]/ZIP Co de Phone Number [facility] [address] 200 [place] [address] * pH, Urine (10/07/2024 3:26 PM CONSTRUCTION CHECKER) pH, U 5.5 4.5 - 8.0 10/07/2024 4:1 4 PM CONSTRUCTION CHECKER DTL Urine 10/07/2024 3:26 PM CONSTRUCTION CHECKER 10/07/2024 3:44 PM CONSTRUCTION CHECKER Martita Rodrigues M.D. LAB URINE ORDERABLES Final Result Performing Organization Address [facility] Co de Phone Number [facility] [address] 200 [place] [address] * Osmolality, Urine (10/07/2024 3:26 PM CONSTRUCTION CHECKER) Osmolality, U 230 150 - 1150 mOsm/kg 10/07/2024 4:14 PM CONSTRUCTION CHECKER DTL Urine 10/07/2024 3:26 PM CONSTRUCTION CHECKER 10/07/2024 3:44 PM CONSTRUCTION CHECKER Martita Rodrigues M.D. LAB URINE ORDERABLES Final Result Performing Organization Address City/[facility]/ZIP Co de Phone Number [facility] 200 [place], [place] [id number] [place] [address] 200 [place] [address] * (ABNORMAL) Urinalysis, with Microscopic: Urine, Midstream (10/07/2024 3:26 PM CONSTRUCTION CHECKER) Source Urine, Urine, Midstream 10/07/2024 3:44 PM CONSTRUCTION CHECKER DTL Color, U Yellow 10/07/2024 3:44 PM CONSTRUCTION CHECKER DTL Clarity, U Clear 10/07/2024 3:44 PM CONSTRUCTION CHECKER DTL Protein, U 8 <26 mg/dL 10/07/2024 4:28 PM CONSTRUCTION CHECKER DTL Protein/Osmol ality 0.35 <0.42 ratio 10/07/2024 4:28 PM CONSTRUCTION CHECKER DTL Predicted 24 HR Protein, U 344(H) <229 mg/24 h 10/07/2024 4:28 PM CONSTRUCTION CHECKER DTL Predicted Range 109-1084 mg/24 h 10/07/2024 4:28 PM CONSTRUCTION CHECKER DTL Urine (Urine, Midstream) 10/07/2024 3:26 PM CONSTRUCTION CHECKER 10/07/2024 3:44 PM CONSTRUCTION CHECKER Martita Rodrigues M.D. LAB URINE ORDERABLES Final Result Performing Organization Address City/[facility]/ZIP Co de Phone Number [facility] 200 [place] [address], [facility] DTL [facility] 200 [place] [address] * Glucose, POCT (10/07/2024 11:54 AM CONSTRUCTION CHECKER) Pathologist [facility] Glucose, POCT, B 91 70 - 140 mg/dL 10/07/2024 11:56 AM CONSTRUCTION CHECKER PCLX Site Capillary 10/07/2024 11:56 AM CONSTRUCTION CHECKER PCLX Blood 10/07/2024 11:5 4 AM CONSTRUCTION CHECKER 10/07/2024 11:57 AM CONSTRUCTION CHECKER Unknown Provider LAB POCT ORDERABLES-MANUAL Alejandrina l Result POC [facility] 200 [place] [address], [facility] PCLX [facility] POC 200 [place] [address] * Basic Metabolic Panel (10/07/2024 6:30 AM CONSTRUCTION CHECKER) Potassium, S 4.7 3.6 - 5.2 mmol/L 10/07/2024 8:01 AM CONSTRUCTION CHECKER DTL Sodium, S 139 135 - 145 mmol/L 10/07/2024 8:01 AM CONSTRUCTION CHECKER DTL Chloride, S 103 98 - 107 mmol/L 10/07/2024 8:01 AM CONSTRUCTION CHECKER DTL Bicarbonate, S 23 22 - 29 mmol/L 10/07/2024 8:01 AM CONSTRUCTION CHECKER DTL Anion Gap 13 7 - 15 10/07/2024 8:01 AM CONSTRUCTION CHECKER DTL BUN (Blood Urea Nitrogen), S 10 8 - 24 mg/dL 10/07/2024 8:01 AM CONSTRUCTION CHECKER DTL Creatinine 0.80 0.74 - 1.35 mg/dL 10/07/2024 8:01 AM CONSTRUCTION CHECKER DTL Estimated GFR (eGFR) >90 >=60 mL/min/BSA 10/07/2024 8:01 AM CONSTRUCTION CHECKER DTL Comment: Estimated GFR calculated using the 2020 CKD_EPI creatinine equation. Calcium, Total, S 8.6 8.6 - 10.0 mg/dL 10/07/2024 8:01 AM CONSTRUCTION CHECKER DTL Glucose, S 89 70 - 140 mg/dL 10/07/2024 8:01 AM CONSTRUCTION CHECKER DTL Blood (Blood, Venous) 10/07/2024 6:30 AM CONSTRUCTION CHECKER 10/07/2024 7:38 AM CONSTRUCTION CHECKER Madalyn Tariq APRN, C.N.P., D.N.P. LAB BLOOD AD D-ON Final Result [address] [address], [facility] [place] [address] * (ABNORMAL) CBC without Differential (10/07/2024 6:30 AM CONSTRUCTION CHECKER) Hemoglobin 12.6(L) 13.2 - 16.6 g/dL 10/07/2024 7:18 AM CONSTRUCTION CHECKER DTL Hematocrit 38.4 38.3 - 48.6 % 10/07/2024 7:18 AM CONSTRUCTION CHECKER DTL Erythrocytes 4.21(L) 4.35 - 5.65 x10(12)/L 10/07/2024 7:18 AM CONSTRUCTION CHECKER DTL MCV 91.2 78.2 - 97.9 fL 10/07/2024 7:18 AM CONSTRUCTION CHECKER DTL RBC Distrib Width 12.9 11.8 - 14.5 % 10/07/2024 7:18 AM CONSTRUCTION CHECKER DTL Platelet Count 264 135 - 317 x10(9)/L 10/07/2024 7:18 AM CONSTRUCTION CHECKER DTL Leukocytes 9.6 3.4 - 9.6 x10(9)/L 10/07/2024 7:18 AM CONSTRUCTION CHECKER DTL Blood (Blood, Venous) 10/07/2024 6:30 AM CONSTRUCTION CHECKER 10/07/2024 7:05 AM CONSTRUCTION CHECKER Elfego Reyes APRNNJayP., D.N.P. LAB BLOOD AD D-ON Final Result [facility] 200 [place] [address] * Fungal Smear (10/06/2024 5:19 PM CONSTRUCTION CHECKER) Fungal Smear Negative. 10/06/2024 9:55 PM CONSTRUCTION CHECKER DTL Fluid (Pelvis) 10/06/2024 2: 54 PM CONSTRUCTION CHECKER Narrative [facility] - 10/06/2024 9:55 PM CONSTRUCTION CHECKER Bacterial Culture: Received Bactec aerobic and Bactec anaerobic bottles Saige Sung M.D. LAB MICROBIOLOGY - GENERAL ORDERABLES Final Result Performing Organization Address [facility] [place]/ZIP Co de Phone Number [facility] [address] [place] [address], [facility] [address] [place] [address] * (ABNORMAL) Gram Stain (10/06/2024 5:19 PM CONSTRUCTION CHECKER) Gram Stain White blood cells, Many(A) 10/06/2024 10:21 PM CONSTRUCTION CHECKER DTL Gram Stain GRAM NEGATIVE BACILLUS Moderate (A) 10/06/2024 10:21 PM CONSTRUCTION CHECKER DTL Gram Stain GRAM POSITIVE COCCI Moderate (A) 10/06/2024 10:21 PM CONSTRUCTION CHECKER DTL Fluid (Pelvis) 10/06/2024 2: 54 PM CONSTRUCTION CHECKER Narrative [facility] - 10/06/2024 10:21 PM CONSTRUCTION CHECKER Bacterial Culture: Received Bactec aerobic and Bactec anaerobic bottles Saige Sung M.D. LAB MICROBIOLOGY - GENERAL ORDERABLES Final Result [facility] [address] [place] [address], [facility] DTL [facility] [address] [place] [address] * (ABNORMAL) Bacterial Culture, Aerobic + Susceptibility (10/06/2024 5:19 PM CONSTRUCTION CHECKER) Bacterial Culture, Aerobic + Susc Culture yields >4 types of aerobic and/or anaerobic bacteria[place] [phone] if further identification is clinically required. (A) 10/10/2024 1:27 PM CONSTRUCTION CHECKER DTL Bacterial Culture, Aerobic + Susc GRAM POSITIVE COCCI Growth after 1 day (A) 10/10/2024 1:27 PM CONSTRUCTION CHECKER DTL Comment: Semi-Urgent Result. Not further identified. Bacterial Culture, Aerobic + Susc GRAM POSITIVE BACILLUS Growth after 1 day (A) 10/10/2024 1:27 PM CONSTRUCTION CHECKER DTL Comment: Semi-Urgent Result. Not further identified. Bacterial Culture, Aerobic + Susc ESCHERICHIA COLI Growth after 1 day (A) 10/10/2024 1:27 PM CONSTRUCTION CHECKER DTL Comment:Semi-Urgent Result. Bacterial Culture, Aerobic + Susc ENTEROBACTER CLOACAE COMPLEX Growth after 1 day (A) 10/10/2024 1:27 PM CONSTRUCTION CHECKER DTL Comment: This organism may contain an inducible beta-lactamase. Second- or third-generation cephalosporin monotherapy may result in the emergence of high-level resistance. Preferred empiric therapy, pending antimicrobial susceptibility results, is cefepime, a fluoroquinolone, or a carbapenem, unless clinically contraindicated. Semi-Urgent This is a semi-urgent result([place]) [facility] Fluid (Pelvis) 10/06/2024 2: 54 PM CONSTRUCTION CHECKER Narrative [facility] - 10/10/2024 1:27 PM CONSTRUCTION CHECKER Bacterial Culture: Received Bactec aerobic and Bactec anaerobic bottles us Saige Sung M.D. LAB MICROBIOLOGY - GENERAL ORDERABLES Final Result [facility] [address] [place] [address], [place] [facility] [address] [place] [address] * CT Abdomen and/or Pelvis Drain Placement (10/06/2024 4:15 PM CONSTRUCTION CHECKER) Anatomical Region Laterality Modality Abdominal RST LOS, Procedura l, Vascular Interventional ARZ LOS, Procedure FLA LOS, Procedural NWWI LOS N/A Computed Tomography, Compute d Tomography Impressions 10/06/2024 4:41 PM CONSTRUCTION CHECKER 1. Placement of a 10 Ethiopian locking pigtail drainage catheter into the right lower quadrant periappendiceal abscess with 21 cc blood-tinged purulent pale yellow fluid removed. Cultures pending. 2. Recommend flushing and aspirating the catheter with 3 ml of saline twice daily. 3. Consider sinogram in interventional radiology in a few days for catheter evaluation. NR Narrative 10/06/2024 4:41 PM CONSTRUCTION CHECKER EXAM: CT ABDOMEN AND/OR PELVIS DRAIN PLACEMENT [...] abscess. INTRODUCER NEEDLE: 17-gauge DRAIN TYPE/SIZE: 10 Ethiopian locking pigtail drainage catheter. VOLUME OF FLUID [...] abscess. INTRODUCER NEEDLE: 17-gauge DRAIN TYPE/SIZE: 10 Ethiopian locking pigtail drainage catheter. VOLUME OF FLUID ASPIRATED: 21 cc APPEARANCE OF ASPIRATE: Blood tinged purulent pale yellow fluid. COMPLICATION: None. BLOOD LOSS: None. PATIENT INSTRUCTIONS: Patient may be dismissed from the radiologydepartment when dismissal criteria met. POST-PROCEDURE DIAGNOSIS: Right lower quadrant periappendiceal abscess. IMPRESSION: 1. Placement of a 10 Ethiopian locking pigtail drainage catheter into theright lower quadrant periappendiceal abscess with 21 cc blood-tingedpurulent pale yellow fluid removed. Cultures pending. 2. Recommend flushing and aspirating the catheter with 3 ml of salinetwice daily. 3. Consider sinogram in interventional radiology in a few days forcatheter evaluation. NR Saige Sung M.D. IMG CT PROCEDURES Final Res ult * (ABNORMAL) Prothrombin Time (PT) (10/06/2024 9:15 AM CONSTRUCTION CHECKER) Prothrombin Time, P 16.4(H) 9.4 - 12.5 sec 10/06/2024 10:17 AM CONSTRUCTION CHECKER DTL INR 1.5 0.9 - 1.1 10/06/2024 10:17 AM CONSTRUCTION CHECKER DTL Comment: ----ADDITIONAL INFORMATION---- Standard intensity warfarin therapeutic range: 2.0 to 3.0 High intensity warfarin therapeutic range: 2.5 to 3.5 Blood (Blood, Venous) 10/06/2024 9:15 AM CONSTRUCTION CHECKER 10/06/2024 10:00 AM CONSTRUCTION CHECKER Madalyn Tariq APRN, C.N.P., D.N.P. LAB BLOOD AD D-ON Final Result [facility] [address] [place] [address], [facility] DT[facility]ly [facility] [address] [place] [address] * Interpretation of Outside CT Abdomen and or Pelvis (10/06/2024 5:26 AM CONSTRUCTION CHECKER) Anatomical Region Laterality Modality Abdomen, Pelvis, Abdominal R ST LOS, Abdominal ARZ LOS, Abdominal FLA LOS, Other N/A Computed Tomography Impressions 10/06/2024 5:53 AM CONSTRUCTION CHECKER Acute perforated appendicitis with developing abscess. Narrative 10/06/2024 5:53 AM CONSTRUCTION CHECKER EXAM: INTERPRETATION OF OUTSIDE CT ABDOMEN AND [...] Culture, Blood # 2 (10/06/2024 3:06 AM CONSTRUCTION CHECKER) Bacteria/Mirtha da Culture, Blood No growth after 5 days of incubation. 10/11/2024 4:02 AM CONSTRUCTION CHECKER DTL Blood (Blood, Peripheral Draw) 10/06/2024 3:06 AM CONSTRUCTION CHECKER 10/06/2024 4:02 AM CONSTRUCTION CHECKER Comment:Specimen Source Site : Blood us Ltety Kevin P.A.-C. LAB MICROBIOLOGY - GENER AL ORDERABLES Final Result Performing Organization Address [facility] [place]/ZIP Co de Phone Number [facility] [address] [place] [address] * Type and Screen (with Reflex Antibody ID) (10/06/2024 2:55 AM CONSTRUCTION CHECKER) Pathologist [facility] ABORh A Pos Not applicable 10/06/2024 3:32 AM CONSTRUCTION CHECKER STRM Antibody Screen Negative Negative 10/06/2024 3:48 AM CONSTRUCTION CHECKER STRM Type & Screen Expiration 10/09/2024 23:59 10/06/2024 3:32 AM CONSTRUCTION CHECKER STRM Testing Location [place] DEFAULT 10/06/2024 3:14 AM CONSTRUCTION CHECKER [facility] Blood (Blood, Venous) 10/06/2024 2:55 AM CONSTRUCTION CHECKER 10/06/2024 3:14 AM CONSTRUCTION CHECKER Letty Kevin P.A.-C. LAB BLOOD BANK TEST ORDE RABLES Final Result Performing Organization Address [facility] [place]/[facility] Co de Phone Number [facility] [address] [place] [address] * Bacteria / Tiff Culture, Blood #1 (10/06/2024 2:55 AM CONSTRUCTION CHECKER) [facility] [place] Bacteria/Mirtha da Culture, Blood No growth after 5 days of incubation. 10/11/2024 4:02 AM CONSTRUCTION CHECKER DTL Blood (Blood, Peripheral Draw) 10/06/2024 2:55 AM CONSTRUCTION CHECKER 10/06/2024 4:01 AM CONSTRUCTION CHECKER Comment:Specimen Source Site : Blood us Letty Kevin P.A.-C. LAB MICROBIOLOGY - GENER AL ORDERABLES Final Result Performing Organization Address City/[facility] [place]/ZIP Co de Phone Number [facility] [address] [place] [address], [facility] [address] [place] [address] * Lipase (10/06/2024 2:55 AM CONSTRUCTION CHECKER) Lipase, S 26 13 - 60 U/L 10/06/2024 3: 55 AM CONSTRUCTION CHECKER DTL Blood (Blood, Venous) 10/06/2024 2:55 AM CONSTRUCTION CHECKER 10/06/2024 3:32 AM CONSTRUCTION CHECKER us Letty Villanueva.A.-C. LAB BLOOD ADD-ON Final R esult Performing Organization Address City/[facility] [place]/ZIP Co de Phone Number [facility] [address] DTL [facility] [address] [place] [address] * Lactate (10/06/2024 2:55 AM CONSTRUCTION CHECKER) Pathologist [facility] Lactate, P 1.0 0.5 - 2.2 mmol/L 10/06/2024 3:24 AM CONSTRUCTION CHECKER STMA Blood (Blood, Venous) 10/06/2024 2:55 AM CONSTRUCTION CHECKER 10/06/2024 3:12 AM CONSTRUCTION CHECKER us Letty Villanueva.A.-C. LAB BLOOD NON ADD-ON Fin al Result Performing Organization Address City/[facility] [place]/ZIP Co de Phone Number [facility] [address] [facility] [address] [place] [address] * (ABNORMAL) Hepatic Function Panel (10/06/2024 2:55 AM CONSTRUCTION CHECKER) Bilirubin, Total, S 0.8 0.0 - 1.2 mg/dL 10/06/2024 3:55 AM CONSTRUCTION CHECKER DTL Bilirubin, Direct, S 0.3 0.0 - 0.3 mg/dL 10/06/2024 3:55 AM CONSTRUCTION CHECKER DTL Aspartate Aminotransferase (AST), S 23 8 - 48 U/L 10/06/2024 3:55 AM CONSTRUCTION CHECKER DTL Alanine Aminotransferase (ALT), S 21 7 - 55 U/L 10/06/2024 3:55 AM CONSTRUCTION CHECKER DTL Alkaline Phosphatase, S 61 40 - 129 U/L 10/06/2024 3:55 AM CONSTRUCTION CHECKER DTL Albumin, S 3.4(L) 3.5 - 5.0 g/dL 10/06/2024 3:55 AM CONSTRUCTION CHECKER DTL Protein, Total, S 6.0(L) 6.3 - 7.9 g/dL 10/06/2024 3:55 AM CONSTRUCTION CHECKER DTL Blood (Blood, Venous) 10/06/2024 2:55 AM CONSTRUCTION CHECKER 10/06/2024 3:32 AM CONSTRUCTION CHECKER us Letty Kevin P.A.-C. LAB BLOOD ADD-ON Final R esult [facility] [address] [place] [address], [facility] DTFormerly [facility] [address] [place] [address] * (ABNORMAL) Basic Metabolic Panel (10/06/2024 2:55 AM CONSTRUCTION CHECKER) Potassium, P 4.3 3.6 - 5.2 mmol/L 10/06/2024 3:28 AM CONSTRUCTION CHECKER STMA Sodium, P 137 135 - 145 mmol/L 10/06/2024 3:28 AM CONSTRUCTION CHECKER STMA Chloride, P 101 98 - 107 mmol/L 10/06/2024 3:28 AM CONSTRUCTION CHECKER STMA Bicarbonate, P 25 22 - 29 mmol/L 10/06/2024 3:28 AM CONSTRUCTION CHECKER STMA Anion Gap, P 11 7 - 15 10/06/2024 3:28 AM CONSTRUCTION CHECKER STMA BUN (Blood Urea Nitrogen), P 13 8 - 24 mg/dL 10/06/2024 3:28 AM CONSTRUCTION CHECKER STMA Creatinine 0.71(L) 0.74 - 1.35 mg/dL 10/06/2024 3:28 AM CONSTRUCTION CHECKER STMA Estimated GFR (eGFR) >90 >=60 mL/min/BSA 10/06/2024 3:28 AM CONSTRUCTION CHECKER STMA Comment: Estimated GFR calculated using the 2020 CKD_EPI creatinine equation. Calcium, Total, P 8.8 8.6 - 10.0 mg/dL 10/06/2024 3:28 AM CONSTRUCTION CHECKER STMA Glucose, P 100 70 - 140 mg/dL 10/06/2024 3:28 AM CONSTRUCTION CHECKER STMA Blood (Blood, Venous) 10/06/2024 2:55 AM CONSTRUCTION CHECKER 10/06/2024 3:12 AM CONSTRUCTION CHECKER us Letty Kevin P.A.-C. LAB BLOOD ADD-ON Final R esult [facility] [address] [place] [address], [facility] STMA [facility] [address] [place] [address] * (ABNORMAL) CBC with Differential, Blood (10/06/2024 2:55 AM CONSTRUCTION CHECKER) Hemoglobin 12.3(L) 13.2 - 16.6 g/dL 10/06/2024 3:16 AM CONSTRUCTION CHECKER STMA Hematocrit 35.8(L) 38.3 - 48.6 % 10/06/2024 3:16 AM CONSTRUCTION CHECKER STMA Erythrocytes 4.03(L) 4.35 - 5.65 x10(12)/L 10/06/2024 3:16 AM CONSTRUCTION CHECKER STMA MCV 88.8 78.2 - 97.9 fL 10/06/2024 3:16 AM CONSTRUCTION CHECKER STMA RBC Distrib Width 12.9 11.8 - 14.5 % 10/06/2024 3:16 AM CONSTRUCTION CHECKER STMA Platelet Count 252 135 - 317 x10(9)/L 10/06/2024 3:16 AM CONSTRUCTION CHECKER STMA Leukocytes 14.8(H) 3.4 - 9.6 x10(9)/L 10/06/2024 3:16 AM CONSTRUCTION CHECKER STMA Neutrophils 12.21(H) 1.56 - 6.45 x10(9)/L 10/06/2024 3:16 AM CONSTRUCTION CHECKER DHPM Lymphocytes 1.35 0.95 - 3.07 x10(9)/L 10/06/2024 3:16 AM CONSTRUCTION CHECKER STMA Monocytes 1.08(H) 0.26 - 0.81 x10(9)/L 10/06/2024 3:16 AM CONSTRUCTION CHECKER STMA Eosinophils 0.13 0.03 - 0.48 x10(9)/L 10/06/2024 3:16 AM CONSTRUCTION CHECKER STMA Basophils 0.04 0.01 - 0.08 x10(9)/L 10/06/2024 3:16 AM CONSTRUCTION CHECKER STMA Blood (Blood, Venous) 10/06/2024 2:55 AM CONSTRUCTION CHECKER 10/06/2024 3:12 AM CONSTRUCTION CHECKER us Letty Kevin P.A.-C. LAB BLOOD ADD-ON Final R esult [facility] [address] [place] [address], [place] STMA [facility] [address] [place] [address] [facility] [address] [place] [address] documented in this encounter Visit Diagnoses Diagnosis [...] ibuprofen, tramadol, oxycodone. Given 10/07/2024 10:05 PM CONSTRUCTION CHECKER 1,000 mg Given 10/07/2024 5:38 PM CONSTRUCTION CHECKER 1,000 mg Given 10/07/2024 10:25 AM CONSTRUCTION CHECKER 1,000 mg amoxicillin-pot clavulanate 875-125 mg per tablet 1 tablet (Augmentin) 1 tablet, oral, Every 12 hours scheduled, First dose on Wed10/07/24 at 1200, Drug Monitoring Program: Pharmacist to adjust medication dosing based on indication and drug clearance factors., Indications: Intra-abdominal infection, community acquiredIndications:Intra-abdominal infection, community acquired Given 10/08/2024 8:07 PM CONSTRUCTION CHECKER 1 tablet Given 10/08/2024 10:19 AM CONSTRUCTION CHECKER 1 tablet Given 10/07/2024 8:26 PM CONSTRUCTION CHECKER 1 tablet cefTRIAXone in dextrose (iso osm) IVPB 2 g (Rocephin) 2 g, intravenous, at 200 mL/hr, Administer over 15 Minutes, Every 24 hours, First dose on Wed10/06/24 at 0430, Drug Monitoring Program: Pharmacist to adjust medication dosing based on indication and drug clearance factors., Indications: Intra-abdominal infection, community acquiredIndications:Intra-abdominal infection, community acquired New Bag 10/07/2024 5:35 AM CONSTRUCTION CHECKER 2 g 2 00 mL/hr New Bag 10/06/2024 5:50 AM CONSTRUCTION CHECKER 2 g 200 mL/hr fentaNYL injection 25 [...] hours, Intraprocedure (RAD) Given 10/06/2024 3:52 PM CONSTRUCTION CHECKER 25 mcg Given 10/06/2024 3:44 PM CONSTRUCTION CHECKER 25 mcg Given 10/06/2024 3:42 PM CONSTRUCTION CHECKER 25 mcg heparin (porcine) injection 5,000 Units 5,000 Units, subcutaneous, Every 8 hours scheduled, First dose on Wed10/06/24 at 1202 Given 10/08/2024 5:13 AM CONSTRUCTION CHECKER 5,000 Units Left Upper Arm (Back ) Given 10/07/2024 10:05 PM CONSTRUCTION CHECKER 5,000 Units Left Upper Arm (Back) Given 10/07/2024 1:26 PM CONSTRUCTION CHECKER 5,000 Units R ight Upper Arm (Back) iohexoL 300 mg iodine/mL solution 150 mL (Omnipaque) 150 mL, intravenous, Once in imaging, contrast, Starting on Wed10/06/24 at 1525, For 1 dose Given 10/06/2024 3:25 PM CONSTRUCTION CHECKER 140 mL Lactated Ringer's 75 mL/hr, intravenous, Continuous, Starting on Wed10/06/24 at 0424 Restarted 10/06/2024 4:28 AM CONSTRUCTION CHECKER 75 mL/hr 75 mL/hr Lactated Ringers Fixed Rate 75 mL/hr, intravenous, Continuous, Starting on Wed10/06/24 at 0158 Rate/Dose Verify 10/07/2024 1:00 AM CONSTRUCTION CHECKER 75 mL/hr 75 mL/hr Rate/Dose Change 10/06/2024 9:58 PM CONSTRUCTION CHECKER 75 mL/hr 75 mL/h r New Bag 10/06/2024 9:46 AM CONSTRUCTION CHECKER 125 mL/hr 125 mL/hr lidocaine 10 mg/mL (1 %) injection (Xylocaine) As needed, Starting on Wed10/06/24 at 1545, Intra-Op Given 10/06/2024 3:45 PM CONSTRUCTION CHECKER 7 mL Abdominal Tissue metroNIDAZOLE in NaCl (iso osm) IVPB 500 mg (FlagyL) 500 mg, intravenous, at 200 mL/hr, Administer over 30 Minutes, Every 8 hours, First dose on Wed10/06/24 at 0424, Drug Monitoring Program: Pharmacist to adjust medication dosing based on indication and drug clearance factors., Indications: Intra-abdominal infection, community acquiredIndications:Intra -abdominal infection, community acquired New Bag 10/07/2024 4:05 AM CONSTRUCTION CHECKER 500 mg 200 mL/hr New Bag 10/06/2024 8:17 PM CONSTRUCTION CHECKER 500 mg 200 mL/hr New Bag 10/06/2024 12:21 PM CONSTRUCTION CHECKER 500 mg 200 mL/hr midazolam (PF) injection 0.5 mg (Versed) 0.5 mg, intravenous, Every 2 min PRN, sedation, RASS -1, Starting on Wed10/06/24 at 1524, Intraprocedure (RAD), May repeat every 2 minutes for a maximum of 5 mg. Do not give if respiratory rate is less than 8 breaths/minute. Given 10/06/2024 3:38 PM CONSTRUCTION CHECKER 0.5 mg Given 10/06/2024 3:34 PM CONSTRUCTION CHECKER 0.5 mg midazolam (PF) injection 1 mg (Versed) 1 mg, intravenous, Every 2 min PRN, sedation, RASS 0, Starting on Wed10/06/24 at 1524, Intraprocedure (RAD), May repeat every 2 minutes for a maximum of 5 mg. Do not give if respiratory rate is less than 8 breaths/minute. Given 10/06/2024 3 :48 PM CONSTRUCTION CHECKER 1 mg Given 10/06/2024 3:42 PM CONSTRUCTION CHECKER 1 mg Given 10/06/2024 3:40 PM CONSTRUCTION CHECKER 1 mg oxyCODONE IR tablet 10 mg [...] patient has diarrhea Given 10/07/2024 10:25 AM CONSTRUCTION CHECKER 17.2 mg sodium chloride (PF) 0.9 % injection 50 mL 50 mL, intravenous, Once, On Wed10/06/24 at 1545, For 1 dose Given 10/06/2024 3:25 PM CONSTRUCTION CHECKER 50 mL documented in this encounter Active and Recently Administered Medications Times are shown in CONSTRUCTION CHECKER. Scheduled Medication Order 10/06/2024 10/07/2024 10/08/2024 acetaminophen [...] - Comment: Patient Sleeping)2006 (Given - Provider: aJde Rodriguez R.N. - Comment: pt d/c)2024 (Not [...] for drain placement)1202 (Not Given - Provider: Annika Coe R.N. - Reason: See Provider Order - Comment: drain placement scheduled)175 (Unheld by provider - Provider: Julianna Verma M.D.)2148 (Given - Provider: Gladys Granger R.N.) [...] analgesics. documented in this encounter Care Teams [place] [place]yer Relationship Specialty Start Date End Date None Reported, Pcp PCP - General Family Medicine 10/06/24 documented as of this encounter
[2024-10-19 16:53] LABS: Procalcitonin* 0.06 ng/mL (<0.50)
[2024-10-19] MEDS: ACETAMINOPHEN 500 MG TABLET 1000 MG PO (17:59)
[2024-10-19] MEDS: cefTRIAXone 1 GM in 0.9 % SODIUM CHLORIDE Mini-bag 100 ML IVPB (18:26)
--- NOTE | 2024-10-19 18:37 | ED.NURSE ---
Bandaid applied to pt surgical site, pt tolerated well.
== END 2024-10-19 19:09 | disposition home or self-care (01) ==
PROVIDERS: Emergency Provider Emergency Medicine Emergency Medical Services
DX: R50.82 Postprocedural fever (principal)
CPT/HCPCS: 36415; 74177; 80048; 84145; 85025; 87040; 87631; 96365; 99284; 99285; A9270; J0696; Q9967